=== PATIENT | male | born 1955 | race Caucasian/White ===

== ENCOUNTER 2020-03-27 13:59 | Outpatient (CLI) | payer BC, SELFPAY ==
--- NOTE | ~2020-03-27 | US_ITS ---
EXAMINATION: US renal BI DATE: 03/27/2020 14:51 INDICATION: Hematuria. Encounter for aftercare following kidney transplant. TECHNIQUE: Multiple ultrasound grayscale images of the kidneys were obtained. COMPARISON: Ultrasound 02/28/2010 FINDINGS: The [place] right kidney is absent. The left kidney measures 10.1 x 4.5 x 6.2 cm. The left kidney demo nstrates increased renal parenchymal echogenicity, consistent with nonspecific nephropathy. There are cysts in left kidney measuring up to 13 mm. There is a right-sided transplant kidney measuring 11.3 x 7.4 x 6.1 cm. The average arterial resistive index in the right kidney is normal. The transplant re nal artery waveform is normal. The transplant renal vein is patent. There is no hydronephrosis. The b ladder is normal. IMPRESSION: 1. Normal transplant kidney. 2. Absent [place] right kidney. 3. Echogenic [place] left kidney, consistent with nonspecific nephropathy. Reviewed, dictated and finalized at location A.
== END 2020-03-27 14:00 | disposition home or self-care (01) ==
PROVIDERS: PCP Family Medicine
DX: Z48.22 Encounter for aftercare following kidney transplant (principal)
CPT/HCPCS: 76775

== ENCOUNTER 2020-04-02 18:12 | Emergency (ER) | payer BC, SELFPAY ==
[2020-04-02 18:14] VITALS: BP 170/79; PULSE 78; RESP 18; TEMP 36.2; O2SAT 99
--- NOTE | 2020-04-02 18:47 | ED.GENADULT ---
HPI - General Adult General Chief complaint: Wound/Laceration Stated complaint: lac on thumb Time Seen by Provider: 04/02/20 18:13 Source: patient Mode of arrival: ambulatory Limitations: no limitations History of Present Illness HPI narrative: Patient is a 64-year-old male who presents with avulsion to the left thumb distal phalanx that occurred just prior to arrival was using a slicer when he sliced the thumb patient notes mild aching pain notes he has been unable to get the bleeding to stop patient denies other injuries or complaints presents in no distress Related Data Allergies Allergy/AdvReac Type Severity Reaction Status Date / Time Penicillins Allergy Severe Verified 01/07/10 10:40 Review of Systems Review of Systems: All systems reviewed & are unremarkable except as noted in HPI and below PMFSH Past Medical History Medical History (Updated 04/02/20 @ 18:50 by Ivan Coleman PA-C) Hypertension Renal failure Surgical History Surgical History Kidney transplanted Social History Social History (Updated 04/02/20 @ 18:49 by Ivan Coleman PA-C) Smoking status: Never smoker Gender identity (if verbalized by the patient): Male Exam Narrative: Exam Narrative: GENERAL: Well-appearing, well-nourished, and in no acute distress. HEAD: Normocephalic, atraumatic. EYES: PERRLA and EOMI. ENT: Nares clear, no rhinorrhea or epistaxis. Mucous membranes moist. EXTREMITIES: Normal range of motion. No edema. SKIN: Warm, dry, no rash. Half centimeter in diameter skin avulsion that is superficial distal left thumb NEURO: No focal deficits. Alert and oriented x3. Neurovascularly intact PSYCH: Normal mood and affect. Course Course Emergency Course: Patient in the room in no distress aware of case findings treatment plan diagnosis Vital Signs Vital signs: Vital Signs Temperature 97.2 F L 04/02/20 18:14 Pulse Rate 78 04/02/20 18:14 Respiratory Rate 18 04/02/20 18:14 Blood Pressure 170/79 H 04/02/20 18:14 Pulse Oximetry 99 04/02/20 18:14 Temperature 97.2 F L 04/02/20 18:14 Pulse Rate 78 04/02/20 18:14 Respiratory Rate 18 04/02/20 18:14 Blood Pressure 170/79 H 04/02/20 18:14 Pulse Oximetry 99 04/02/20 18:14 Procedures Other Procedure Procedure 1: Other Procedure: Patient with skin avulsion that was bleeding hemostasis achieved with let Surgicel and pressure dressing Medical Decision Making MDM Narrative Medical decision making narrative: Patients injury or pain is consistent with musculoskeletal etiology. No signs of neurological or vascular compromise on exam. Compartments and tisues are soft without signs of compartment syndrome. Pain is felt appropriate for further evaluation on an outpatient basis. Hemostasis achieved Vital Signs Vital Signs: Vital Signs Temperature 97.2 F L 04/02/20 18:14 Pulse Rate 78 04/02/20 18:14 Respiratory Rate 18 04/02/20 18:14 Blood Pressure 170/79 H 04/02/20 18:14 Pulse Oximetry 99 04/02/20 18:14 Temperature 97.2 F L 04/02/20 18:14 Pulse Rate 78 04/02/20 18:14 Respiratory Rate 18 04/02/20 18:14 Blood Pressure 170/79 H 04/02/20 18:14 Pulse Oximetry 99 04/02/20 18:14 Discharge Plan Discharge Clinical Impression: Avulsion of skin Patient Disposition: Home, Self-Care Condition: Stable Instructions: Antibiotic Form, Skin Avulsion (ED) Additional Instructions: Follow up with primary care in the next 7 days return if symptoms worsen or concerns, any increase in redness swelling pain or fever over 100.5 Clean wound with mild soapy water. Apply antibiotic ointment and clean dressing at least three times daily Follow-up/Referrals: Joao Roberts MD [Primary Care Provider] -
== END 2020-04-02 19:11 | disposition home or self-care (01) ==
LOC: ANHED 18:54
PROVIDERS: Emergency Provider Emergency Medicine; PCP Family Medicine
DX: S61.002A Unspecified open wound of left thumb without damage to nail, initial encounter (principal); I10 Essential (primary) hypertension; N19 Unspecified kidney failure; Z94.0 Kidney transplant status; W27.4XXA Contact with kitchen utensil, initial encounter
CPT/HCPCS: 12001; 99282

== ENCOUNTER 2020-04-26 15:59 | Emergency (ER) | payer BC, SELFPAY ==
[2020-04-26 16:07] VITALS: BP 152/89; PULSE 77; RESP 18; TEMP 36.1; O2SAT 95
--- NOTE | 2020-04-26 18:07 | ED.GENADULT ---
HPI - General Adult General Chief complaint: Wound/Laceration Stated complaint: SKIN BIOPSY SITE BLEEDING Time Seen by Provider: 04/26/20 16:20 Source: patient Mode of arrival: ambulatory Limitations: no limitations History of Present Illness HPI narrative: Patient is a 64-year-old male who presents to emergency department for evaluation of bleeding from his surgical wound to the left forearm patient had skin cancer removed at [facility] today discharged home and notes now that he has bleeding from the wound patient notes minimal discomfort at this time patient is currently on Xarelto for atrial fibrillation patient on arrival to emergency department is in the room in no distress and denies any bleeding from other locations or other complaints or concerns Related Data Allergies Allergy/AdvReac Type Severity Reaction Status Date / Time Penicillins Allergy Severe Verified 01/07/10 10:40 Review of Systems Review of Systems: All systems reviewed & are unremarkable except as noted in HPI and below PMFSH Past Medical History Medical History Hypertension Renal failure Surgical History Surgical History Kidney transplanted Social History Social History Smoking status: Never smoker Gender identity (if verbalized by the patient): Male Exam Narrative: Exam Narrative: GENERAL: Well-appearing, well-nourished, and in no acute distress. HEAD: Normocephalic, atraumatic. EYES: PERRLA and EOMI. ENT: Nares clear, no rhinorrhea or epistaxis. Mucous membranes moist. EXTREMITIES: Normal range of motion. No edema. SKIN: Warm, dry, no rash. Slight oozing from the left forearm incision site with some swelling with likely underlying hematoma. NEURO: No focal deficits. Alert and oriented x3. Neurovascularly intact. Capillary refill less than 2 seconds PSYCH: Normal mood and affect. Course Course Emergency Course: Patient in the room at this time resting comfortably aware of case findings treatment plan and diagnosis will follow with his clearance rep tomorrow will be discharged home provided with reasons to return Consultations Consultation #1: Discussed case with audiology who notes the patient can hold his Xarelto for 2 days and is to contact the office tomorrow Date: 04/26/20 Time: 18:15 Vital Signs Vital signs: Vital Signs Temperature 97 F L 04/26/20 16:07 Pulse Rate 77 04/26/20 16:07 Respiratory Rate 18 04/26/20 16:07 Blood Pressure 152/89 H 04/26/20 16:07 Pulse Oximetry 95 04/26/20 16:07 Temperature 97 F L 04/26/20 16:07 Pulse Rate 77 04/26/20 16:07 Respiratory Rate 18 04/26/20 16:07 Blood Pressure 152/89 H 04/26/20 16:07 Pulse Oximetry 95 04/26/20 16:07 Procedures Other Procedure Procedure 1: Other Procedure: Surgicel and pressure dressing applied to the left forearm Medical Decision Making MDM Narrative Medical decision making narrative: Patients injury or pain is consistent with musculoskeletal etiology. No signs of neurological or vascular compromise on exam. Compartments and tisues are soft without signs of compartment syndrome. Pain is felt appropriate for further evaluation on an outpatient basis. Patient with slight oozing from his wound felt appropriate for discharge home will follow with dermatology tomorrow has been given reasons to return pressure dressing applied with Surgicel Vital Signs Vital Signs: Vital Signs Temperature 97 F L 04/26/20 16:07 Pulse Rate 77 04/26/20 16:07 Respiratory Rate 18 04/26/20 16:07 Blood Pressure 152/89 H 04/26/20 16:07 Pulse Oximetry 95 04/26/20 16:07 Temperature 97 F L 04/26/20 16:07 Pulse Rate 77 04/26/20 16:07 Respiratory Rate 18 04/26/20 16:07 Blood Pressure 152/89 H 04/26/20 16:07 Pulse Oximetry 95 04/26/20 16:07
[2020-04-26 18:30] VITALS: BP 144/90; PULSE 86; RESP 20; O2SAT 97
== END 2020-04-26 18:31 | disposition home or self-care (01) ==
PROVIDERS: Emergency Provider Emergency Medicine; PCP Family Medicine
DX: L76.21 Postprocedural hemorrhage of skin and subcutaneous tissue following a dermatologic procedure (principal); I12.9 Hypertensive chronic kidney disease with stage 1 through stage 4 chronic kidney disease, or unspecified chronic kidney disease; N18.9 Chronic kidney disease, unspecified; Z94.0 Kidney transplant status
CPT/HCPCS: 12001; 99282

== ENCOUNTER → 2022-11-13 07:58 | Outpatient (CLI) | payer MEDICARE, BC, SELFPAY ==
--- NOTE | ~2022-11-13 | US_ITS ---
EXAMINATION: US venous doppler [facility] DATE: 11/13/2022 08:26 INDICATION: Left lower limb edema. TECHNIQUE: Grayscale ultrasound images without and with compression and Doppler ultrasound images of the left lower extremity veins were obtained. COMPARISON: None. FINDINGS: The visualized portions of left common femoral vein, profunda (deep) femoral vein, femoral vein, popl iteal vein, peroneal veins, posterior tibial veins, and greater saphenous vein outflow are patent. IMPRESSION: 1. No deep venous thrombosis. Reviewed, dictated and finalized at location A.
== END ==
PROVIDERS: PCP Family Medicine; Visit Provider Internal Medicine Cardiovascular Disease
DX: R60.0 Localized edema (principal); M79.605 Pain in left leg; L53.9 Erythematous condition, unspecified
CPT/HCPCS: 93971

== ENCOUNTER 2023-07-30 11:18 | Inpatient (IN) | payer MEDICARE, SELFPAY ==
--- NOTE | ~2023-07-30 | XR_ITS ---
EXAMINATION: XR chest PICC line DATE: 08/04/2023 15:32 INDICATION: Central line placement. TECHNIQUE: A single frontal view of the chest was obtained. COMPARISON: Chest single view 08/01/2023 FINDINGS: A calcified right lung nodule is consistent with old granulomatous disease. No pleural effu venkat or pneumothorax. The heart size is normal. Median sternotomy wires and mediastinal surgical clip s are seen, likely from prior coronary artery bypass grafting. A left upper extremity peripherally in serted central venous catheter (PICC) is seen with tip in the superior vena cava. IMPRESSION: 1. PICC tip in the superior vena cava. Reviewed, dictated and finalized at location A. OENGRAVING HELPER
--- NOTE | ~2023-07-30 | XR_ITS ---
EXAMINATION: XR foot LT min 3V DATE: 07/30/2023 13:22 INDICATION: Left foot wound with ulcer and erythema TECHNIQUE: Dorsoplantar, two oblique and lateral views of the left foot were obtained. COMPARISON: None. FINDINGS: Bone alignment is normal. No fracture. Mild polyarticular osteoarthritis at the first metatarsophalan geal and several tarsal metatarsal and interphalangeal joints. Large Achilles and plantar calcaneal s purs with smaller enthesophytes at the medial and lateral malleoli as well as at the lateral base of the fifth metatarsal. There is an ulceration which appears to extend through the thickness of the sub cutaneous fat overlying the medial head of the first metatarsal. No underlying cortical erosion or pe riosteal reaction to suggest osteomyelitis. IMPRESSION: 1. No findings to suggest osteomyelitis deep to a moderate thickness ulceration medial to the head of the first metatarsal. 2. Chronic degenerative changes in the foot including mild polyarticular osteoarthritis in the mid an d forefoot and enthesophytes at the ankle, mid and hindfoot. Reviewed, dictated and finalized at location A. [employer] IMPRESSION: 1. No findings to suggest osteomyelitis deep to a moderate thickness ulceration medial to the head of the first metatarsal. 2. Chronic degenerative changes in the foot including mild polyarticular osteoa rthritis in the mid and forefoot and enthesophytes at the ankle, mid and hindfo ot.
--- NOTE | ~2023-07-30 | MR_ITS ---
EXAMINATION: MR foot LT wo con DATE: 07/31/2023 13:56 INDICATION: Left foot wound with cellulitis. Assess for osteomyelitis TECHNIQUE: Magnetic resonance imaging (MRI) of the left fore/mid foot was performed without intraveno us contrast. Sequences included sagittal T1-weighted FSE, sagittal fluid sensitive FSE STIR, coronal PD-weighted FS FSE, coronal T1-weighted FSE, axial PD-weighted FS FSE, and axial PD-weighted FSE. COMPARISON: Radiographs dated 07/30/2023 FINDINGS: There is a deep ulceration at the medial head of the first metatarsal which extends deep to the super ficial margin of the medial collateral ligament complex. Moderate-sized underlying joint effusion at the first metatarsophalangeal joint suspicious for septic arthritis. There is mild marrow edema at th e base of the first proximal phalanx and at the medial head of the first metatarsal without definitiv e cortical erosion or geographic loss of T1 fat signal to more specifically suggest osteomyelitis in this remains equivocal for either reactive edema versus very early osteomyelitis. The first metatarsophalangeal tibial sesamoid appears to divide into proximal and distal portions, un clear whether this is fragmentation of a single sesamoid or a developmentally bipartite sesamoid. The re is however prominent cystic change with suggestion of some fragmentation of the proximal portion o f the sesamoid which could be related to osteoarthritis or osteomyelitis. Decreased signal in the dis fabián portion of the sesamoid and in much of the fibular sesamoid. There is mild edema along the medial margin of the fibular sesamoid without definitive cortical erosion or T1 signal loss which similarly is equivocal for reactive edema versus early osteomyelitis. There is prominent fluid extending along the flexor hallucis longus tendon which does not appear to r emain confined to the tendon sheath with additional loculated collections of fluid in the surrounding soft tissues including the distal portion of the abductor hallucis muscle and both the medial and la teral heads of the distal flexor hallucis brevis muscles, all concerning for abscess. The intramuscul ar fluid collections extend proximally to the level of the distal margin of the medial cuneiform. Dis tally the fluid extends along the flexor tendon to the level of the base of the distal phalanx. There is also a 1.3 cm diameter loculated fluid collection along the distalmost abductor hallucis muscle s ituated between the plantar aspect of the necks of the cysts first and second metatarsals. There is a lso a small amount of tenosynovial fluid more proximally at the level of the flexor not of Shaq garcia jackie this demonstrates more homogeneous higher fluid signal than the more distal fluid suggesting this may remain aseptic. There is however a prominent fusiform thickening and increased intrasubstance si gnal of the flexor hallucis longus tendon centered at the level of the distal diaphysis of the first metatarsal consistent with tendinopathy and potentially longitudinal split tearing. Otherwise normal marrow signal throughout the remaining bones in the visualized fore and midfoot. The re is diffuse fatty atrophy of the intrinsic musculature of the foot with diffuse edema within the harrington bcutaneous tissues and deeper in the intrinsic musculature throughout the visualized foot. IMPRESSION: 1. Ulceration at the medial head of the first metatarsal with moderate amount of fluid in the adjacen t first metatarsophalangeal joint suspicious for septic arthritis. 2. Mild edema at the base of the first proximal phalanx and medial head of the first metatarsal witho ut definitive cortical erosion or T1 signal loss to more specifically suggest osteomyelitis in this r emains equivocal for either reactive edema versus early osteolysis. 3. Low signal change at the first metatarsal sesamoids with cystic change and fragmentation at the pr oximal aspect
--- NOTE | ~2023-07-30 | XR_ITS ---
XR chest 1V portable 08/01/2023 08:22 Indication: Shortness of breath Procedure: AP portable chest Comparison: Comparison to multiple prior studies sequentially, with oldest reviewed study dated 03/04. Findings: Status post median sternotomy for CABG. Borderline heart size. Left basilar infiltrates may represent atelectasis or developing pneumonia. No significant effusion. No edema. No pneumothorax. N o acute osseous abnormality. Impression: 1: Left basilar infiltrate, atelectasis versus pneumonia. Reviewed, dictated and finalized at location A. ICAL INSTRUMENT MECHANIC Impression: 1: Left basilar infiltrate, atelectasis versus pneumonia.
--- NOTE | ~2023-07-30 | US_ITS ---
EXAMINATION: US arterial ankle brachial ind DATE: 08/01/2023 18:13 INDICATION: Peripheral arterial disease. Claudication. TECHNIQUE: Segmental pressures and plethysmographic and Doppler waveforms of the brachial and lower e xtremity arteries were obtained. COMPARISON: None. FINDINGS: Right brachial artery pressure was not measured due to the fistula. Left brachial artery pressure is 132 mm Hg. The right ankle-brachial index (FLOYD) is 0.83 (normal >= 0.9-1.0). The right great toe-brachial index (TBI) is 0.56 (normal >= 0.65). Arterial Doppler waveforms are monophasic at the ankle. The left FLOYD is 0.5. The left TBI is 0.25. Arterial Doppler waveforms are monophasic at the ankle. IMPRESSION: 1. Mildly decreased ABIs and decreased TBIs (left worse than right), consistent with arterial occlusi ve disease. Reviewed, dictated and finalized at location E. FERING MACHINE OPERATOR IMPRESSION: 1. Mildly decreased ABIs and decreased TBIs (left worse than right), consistent with arterial occlusive disease.
[2023-07-30 11:19] VITALS: BP 95/61; PULSE 98; RESP 16; TEMP 36.6; O2SAT 98
--- NOTE | 2023-07-30 12:57 | ED.WOUNDLAC ---
HPI - Wound/Laceration General Chief Complaint: Wound/Laceration <Marilee Allen PA-C - Last Filed: 07/30/23 16:39> Stated Complaint: open wound left foot <Marilee Allen PA-C - Last Filed: 07/30/23 16:39> Time Seen by Provider: 07/30/23 12:19 <Marilee Allen PA-C - Last Filed: 07/30/23 16:39> Source: patient <Marilee Allen PA-C - Last Filed: 07/30/23 16:39> Mode of arrival: ambulatory <Marilee Allen PA-C - Last Filed: 07/30/23 16:39> Limitations: no limitations <Marilee Allen PA-C - Last Filed: 07/30/23 16:39> History of Present Illness HPI narrative: This is a 68 year old male that presents to the ER for a wound present to the left foot. Ongoing over the last couple of weeks. Reports foul smelling drainage, redness and swelling. Denies fevers. <Marilee Allen PA-C - Last Filed: 07/30/23 16:39> Related Data Allergies/Adverse Reactions: Allergies Allergy/AdvReac Type Severity Reaction Status Date / Time Penicillins Allergy Severe Verified 01/07/10 10:40 <Marilee Allen PA-C - Last Filed: 07/30/23 16:39> Review of Systems Review of Systems: CONSTITUTIONAL: Denies fever SKIN: Reports wound NEUROLOGIC: Reports numbness <Marilee Allen PA-C - Last Filed: 07/30/23 16:39> All systems reviewed & are unremarkable except as noted in HPI and below <Marilee Allen PA-C - Last Filed: 07/30/23 16:39> [facility] Past Medical History Medical History: Medical History (Updated 07/30/23 @ 16:45 by Su Berg PA-C) Coronary artery disease Hypertension Paroxysmal atrial fibrillation Peripheral vascular disease Prediabetes Hemoglobin A1c was 6.3% in 07/2023. Renal cell carcinoma <Marilee Allen PA-C - Last Filed: 07/30/23 16:39> Surgical History Surgical History: Surgical History (Updated 07/30/23 @ 18:21 by Jim Brock MD) History of Achilles tendon repair History of cardiac catheterization History of coronary artery bypass graft (09/2015) History of kidney transplant History of right nephrectomy (08/2013) <Marilee Allen PA-C - Last Filed: 07/30/23 16:39> Family History Family History: Family History (Updated 07/30/23 @ 17:31 by Sara Florian RN) Father Hypertension Diabetes mellitus Heart attack Mother Breast cancer <Marilee Allen PA-C - Last Filed: 07/30/23 16:39> Social History Social History: Social History Social History: Surrogate medical decision maker: Code status: Smoking packs per day: 1 Smoking cigarettes per day: 20.0 Years smoked: 35 Smoking pack-years: 35.00 Smoking status: Former smoker Alcohol intake: current Drinks per week: 1 Substance use: never Substance use type: does not use Do You Feel Safe in your Home?: Yes Lack of Transportation: No Lack of Food: Never True Current Housing: Decline to Answer Concerned About Future Housing: No Difficulty Paying Gas/Electric Bills: No Difficulty Paying for Meds: No Currently Unemployed: No Education: Bachelor's Degree Difficulty w/ Childcare or Family Care: No Spiritual care concerns: No <Marilee Allen PA-C - Last Filed: 07/30/23 16:39> Exam Narrative: GENERAL: Well-appearing, well-nourished, and in no acute distress. HEAD: Normocephalic, atraumatic. EYES: EOMI. CHEST: Clear to auscultation. No respiratory distress. No wheezes rales or rhonchi HEART: Regular rate and rhythm. No murmur heard. Normal peripheral pulses. EXTREMITIES: Normal range of motion. Left foot with two ulcerating lesions. One to the medial aspect of the 1st metatarsal, additional to the plantar aspect of the 1st metatarsal. Foul smelling drainage of the plantar wound with surrounding edema and erythema. DP pulse obtained via doppler SKIN: Warm, dry, no rash. NEURO: No focal deficits. Alert and oriented x3. PSYCH: Normal mood and affect <Kai
[2023-07-30 13:47] LABS: Basophils Percent Auto 0.1 % (0.2-1.2); Hematocrit 36.8 % (42.0-52.0); Immature Granulocyte Absolute 0.07 K/mm3 (0.00-0.031); Immature Granulocyte Percent A 0.7 % (0-0.5); Lymphocytes Absolute Auto 0.27 K/mm3 (0.9-3.2); Lymphocytes Percent Auto 2.8 % (18.3-44.2); Mean Corpuscular HGB Conc 32.6 g/dl (32-36); Mean Platelet Volume 8.6 fl (7.4-10.4); Monocytes Absolute Auto 0.5 K/mm3 (0.1-0.6); Monocytes Percent Auto 5.2 % (2.6-8.5); Neutrophils Absolute Auto 8.8 K/mm3 (1.3-6.7); Neutrophils Percent Auto 91.2 % (45.5-73.1); Platelet Count Result 200 k/mm3 (150-375); White Blood Count 9.7 K/mm3 (4.5-10.0)
[2023-07-30 13:56] LABS: Lactic Acid Reflex 1.4 mmol/L (0.7-2.0)
[2023-07-30 14:00] LABS: Alanine Aminotransferase 33 U/L (6-50); Albumin Level 3.2 g/dL (3.5-5.1); Alkaline Phosphatase 100 U/L (38-126); Anion Gap 6 mmol/L (8-16); Aspartate Amino Transferase 42 U/L (17-59); Bilirubin,Total 1.2 mg/dL (0.2-1.3); Blood Urea Nitrogen 28 mg/dL (9-20); CRP 6.3 mg/dL (<1.0); Calcium 9.8 mg/dL (8.4-10.2); Carbon Dioxide 22 mmol/L (22-30); Chloride 101 mmol/L (98-107); Estimated CRCL calculation 82 ml/min; Estimated Glomerular Filt Rate > 60; Glucose 124 mg/dL (65-110); Potassium 3.8 mmol/L (3.4-5.0); Sodium 129 mmol/L (137-145)
[2023-07-30 14:24] VITALS: BP 115/62; PULSE 86; RESP 20; TEMP 36.4; O2SAT 96
[2023-07-30 14:36] LABS: Erythrocyte Sedimentation Rate 55 mm/hr (0-20)
[2023-07-30] MEDS: levoFLOXacin 750 MG/D5W 150 ML 750 MG/150 ML BAG 100 MG IVPB (15:15)
[2023-07-30] MEDS: metroNIDAZOLE 500 MG/ISO 100ML 500 MG/100 ML BAG 100 MG IVPB ×2 (15:16→20:54)
[2023-07-30 15:29] LABS: Hemoglobin A1C 6.3 % (<5.7)
[2023-07-30 16:17] VITALS: BP 114/60; PULSE 80; RESP 20; TEMP 36.5; O2SAT 96
--- NOTE | 2023-07-30 16:38 | PM.IMHP ---
H&P: HPI History of Present Illness Date/Time: 07/30/23 18:00 Chief Complaint: Left foot wound. Narrative: This is a very pleasant 68-year-old male multiple medical problems including coronary artery disease, hypertension, hyperlipidemia, atrial fibrillation on chronic anticoagulation, renal cell carcinoma status post nephrectomy, end-stage renal disease on hemodialysis prior to transplant in 2016 on immunosuppressant, and obstructive sleep apnea who presented to the emergency department for evaluation of a left foot wound. The patient provides the following history. He reports having a blood blister on the middle part of the left foot for quite some time which he has been trying to treat at home. Several weeks ago the blister ruptured and was draining serosanguineous fluid for awhile. Since that time he has noticed pain at that site with weight-bearing and more recently he has developed redness and swelling about the area. He is otherwise feeling fine and denies fever, chills, sweats, nausea, and vomiting. No history of MRSA or other drug resistant organisms to his knowledge. In the ED: He was afebrile on arrival. Blood pressures have been running at the low end of normal which he states is usual for him. Labs were significant for WBC count of 9.7, hemoglobin 12.0, ESR 55, sodium 129, BUN 28, glucose 124, hemoglobin A1c 6.3, lactic acid 1.4, CRP 6.3. Foot x-ray showed no findings to suggest osteomyelitis. He was started on levofloxacin and metronidazole and is being admitted in this setting for IV antibiotics and surgery consultation for probable debridement. Review of Systems Review of Systems: Twelve systems were reviewed. No recent cold or flu symptoms. He wears contacts and upper and lower dentures. He has lost about 5 lb in the last month or so due to a decrease in appetite; food just does not taste as good to him anymore. He denies epigastric and abdominal pain. No dysphagia. He has not had nausea or vomiting. He has a CPAP at home which he has difficulties getting use to. No history of diabetes though hemoglobin A1c today was 6.3%. Except as documented, all other systems were reviewed and are negative. [facility] Past Medical History Medical History (Updated 07/30/23 @ 21:17 by Su Berg PA-C) Chronic anticoagulation Chronic atrial fibrillation Coronary artery disease Status post 3 vessel bypass. Hypertension Immunosuppressed status On anti-rejection medications post renal transplant. Obstructive sleep apnea Prediabetes Hemoglobin A1c was 6.3% in 07/2023. Renal cell carcinoma Surgical History Surgical History (Updated 07/30/23 @ 21:13 by Su Berg PA-C) History of Achilles tendon repair History of cardiac catheterization History of coronary artery bypass graft (09/2015) History of kidney transplant (12/2015) History of right nephrectomy (2011) For renal cell carcinoma. Family History Family History Father Hypertension Diabetes mellitus Heart attack Mother Breast cancer Social History Social History (Updated 07/30/23 @ 21:14 by Su Berg PA-C) Social History: Surrogate medical decision maker: Vern Wooten, cristian. Code status: Full code. Smoking packs per day: 1 Smoking cigarettes per day: 20.0 Years smoked: 35 Smoking pack-years: 35.00 Smoking status: Former smoker Alcohol intake: current Drinks per week: 1 Substance use: never Substance use type: does not use Do You Feel Safe in your Home?: Yes Lack of Transportation: No Lack of Food: Never True Current Housing: Decline to Answer Concerned About Future Housing: No Difficulty Paying Gas/Electric Bills: No Difficulty Paying for Meds: No Currently Unemployed: No Education: Bachelor's Degree Difficulty w/ Childcare or Family Care: No Spiritual care concerns: No Meds Home Medications and Allergies Home Medications Medic
[2023-07-30 16:40] VITALS: BP 108/50; PULSE 96; RESP 17; TEMP 36.4; O2SAT 100
--- NOTE | 2023-07-30 16:48 | ADMGEN ---
This patient, Manuel Wooten, was admitted to 2 Medical Room 259-01. Patient/family oriented to hospital policies and general routines including ID bracelet, bed and alarms, visiting hours, pain management, procedures, bathroom and other care routines, personal items, smoking policy, room service/diet, and visiting hours. Information on how to activate the Rapid Response Team has been discussed. Patient/Family are encouraged to report perceived risks to care and to ask questions if they do not understand what they are told or what they should do.
--- NOTE | 2023-07-30 18:08 | WPDCN ---
Assessment and Plan Assessment and plan (1) Cellulitis of left foot: Code(s): L03.116 - Cellulitis of left lower limb Status: Acute Assessment and Plan: Patient has cellulitis of the left forefoot. He is allergic to penicillin so he has been started on Levaquin and Flagyl for IV antibiotics. (2) Wound of left foot: Code(s): S91.302A - Unspecified open wound, left foot, initial encounter Status: Acute Assessment and Plan: Patient has a draining purulent wound on the plantar surface of the left forefoot. In likely tunnels to the chronic wound on the medial left forefoot. He will likely have to have further and drainage of the wound make sure that is able to drain pus adequately and have it washed out. Given his physical examination he is at risk for osteomyelitis although that is not clearly evident on his x-rays. I would recommend getting a MRI with contrast of the left foot to evaluate for osteomyelitis. If that appears to be the case the need a extended course of IV antibiotics for 6 weeks and placement of PICC line for home IV antibiotic therapy. (3) Paroxysmal atrial fibrillation: Code(s): I48.0 - Paroxysmal atrial fibrillation Status: Acute Assessment and Plan: Patient is on Xarelto for his AFib. Will need to hold his Xarelto starting today for likely incision and drainage of the left foot wound. (4) History of kidney transplant: Code(s): Z94.0 - Kidney transplant status Status: Acute Assessment and Plan: Patient is on prednisone and what appears to be CellCept for systemic immunosuppression. I did briefly ask 1 of our dairy quality assurance officer if the patient can get a MRI with IV contrast with his kidney transplant. It was suggested as long as the patient has normal renal function of the transplant kidney then giving IV contrast with MRI should not be a problem. However, if there is any concern regarding giving this IV contrast then will formally consult Nephrology for their opinion and to aid with management of his transplant medications while he is admitted. HPI Data of Consult Date/Time: 07/30/23 18:09 Requesting Physician: Marixa Nolen MD Primary Care Provider: Joao Roberts MD Consult Narrative Reason for consult: Left foot cellulitis and purulent draining wound. Narrative: Manuel Wooten is a 68 year old male who presented to the emergency room today after noticing worsening redness and swelling of his left medial forefoot and pus draining from the plantar surface of the left forefoot. He states he had a blood blister on the medial aspect of the left foot near the 1st metatarsophalangeal joint and he tried to treat this at home with [id number] medications. He never presented to his physicians to have it evaluated. In the emergency room he was noted to have a normal white blood cell count . X-ray of the left foot showed ulcer and soft tissue swelling suggestive of cellulitis but no obvious evidence of bony erosion to suggest osteomyelitis. He admits to having some mild pain with extension and flexion of the left great toe. The patient had a normal hemoglobin A1c and has not had a prior history of diabetes however he has had a prior history of renal cell carcinoma and nephrectomy and then subsequently end-stage renal disease requiring a kidney transplant at [facility] in 2016. Since that time his transplant kidney has been working well and he takes prednisone and Cellcept for immunosuppression. He also takes Xarelto for atrial fibrillation. Review of Systems Review of Systems: The remainder of the review of systems to include constitutional, HEENT, cardiovascular, respiratory, GI, , integumentary, musculoskeletal, endocrine, immunologic, hematologic, psychiatric, and neurologic are all negative except for which is mentioned above in the HPI. [facility] Past Medical History Medical History (Updated 07/30/23 @
[2023-07-30 20:47] VITALS: BP 123/53; PULSE 76; RESP 14; TEMP 36.6; O2SAT 98; BMI 31.9
[2023-07-30 20:53] VITALS: PULSE 76
[2023-07-30] MEDS: ATORVASTATIN 40 MG TABLET PO (20:53)
[2023-07-30] MEDS: lisinopriL 10 MG TABLET 30 MG PO (20:53)
[2023-07-30] MEDS: TAMSULOSIN HCL 0.4 MG CAPSULE PO (20:53)
[2023-07-30] MEDS: carvediloL 25 MG TABLET PO (20:53)
[2023-07-30] MEDS: SODIUM CHLORIDE 0.9% IV 1,000 ML 120 ML IV CONT (23:56)
[2023-07-31] VITALS (13 sets, daily range): BP systolic 104–133; BP diastolic 47–97; PULSE 64–116; RESP 16–21; TEMP 36.2–36.7; O2SAT 90–100; BMI 32.0
[2023-07-31] MEDS: metroNIDAZOLE 500 MG/ISO 100ML 500 MG/100 ML BAG 100 MG IVPB ×3 (02:16→17:38)
[2023-07-31 05:19] LABS: Basophils Percent Auto 0.1 % (0.2-1.2); Eosinophils Percent Auto 0.1 % (0-4.4); Hematocrit 32.6 % (42.0-52.0); Hemoglobin 10.6 g/dL (14.0-18.0); Immature Granulocyte Absolute 0.05 K/mm3 (0.00-0.031); Immature Granulocyte Percent A 0.7 % (0-0.5); Lymphocytes Absolute Auto 0.38 K/mm3 (0.9-3.2); Lymphocytes Percent Auto 5.1 % (18.3-44.2); Mean Corpuscular HGB Conc 32.5 g/dl (32-36); Mean Corpuscular Hemoglobin 29.9 pg (26-34); Mean Corpuscular Volume 91.8 fl (80-100); Mean Platelet Volume 8.8 fl (7.4-10.4); Monocytes Absolute Auto 0.6 K/mm3 (0.1-0.6); Monocytes Percent Auto 7.5 % (2.6-8.5); Neutrophils Absolute Auto 6.5 K/mm3 (1.3-6.7); Neutrophils Percent Auto 86.5 % (45.5-73.1); Platelet Count Result 180 k/mm3 (150-375); Red Blood Count 3.55 M/mm3 (4.6-6.20); Red Cell Distribution Width 13.9 % (11.5-14.5); White Blood Count 7.5 K/mm3 (4.5-10.0)
[2023-07-31 05:51] LABS: Anion Gap 5 mmol/L (8-16); Blood Urea Nitrogen 23 mg/dL (9-20); Carbon Dioxide 18 mmol/L (22-30); Chloride 105 mmol/L (98-107); Estimated CRCL calculation 100 ml/min; Estimated Glomerular Filt Rate > 60; Glucose 107 mg/dL (65-110); Magnesium 1.9 mg/dL (1.6-2.3); Potassium 3.8 mmol/L (3.4-5.0); Sodium 128 mmol/L (137-145)
--- NOTE | 2023-07-31 08:13 | PM.IMPN ---
Progress Note: A&P Assessment and Plan (1) Cellulitis of left foot: Code(s): L03.116 - Cellulitis of left lower limb Status: Acute (2) Wound of left foot: Code(s): S91.302A - Unspecified open wound, left foot, initial encounter Status: Acute (3) Prediabetes: Code(s): R73.03 - Prediabetes Status: Acute (4) Hyponatremia: Code(s): E87.1 - Hypo-osmolality and hyponatremia Status: Acute (5) Immunosuppressed status: Code(s): D84.9 - Immunodeficiency, unspecified Status: Acute (6) Chronic atrial fibrillation: Code(s): I48.20 - Chronic atrial fibrillation, unspecified Status: Acute Plan This is a very pleasant 68-year-old male multiple medical problems including coronary artery disease, hypertension, hyperlipidemia, atrial fibrillation on chronic anticoagulation, renal cell carcinoma status post nephrectomy, end-stage renal disease on hemodialysis prior to transplant in 2016 on immunosuppressant, and obstructive sleep apnea who presented to the emergency department for evaluation of a left foot wound.? Cellulitis of left foot infected wound with surrounding cellulitis. started on levofloxacin and metronidazole in the emergency department and we will continue with this, and add doxy 100 mg q12h iv pending wound culture. Dr. Brock has been consulted as he will likely need debridement of the wound. f/u MRSA History of atrial fibrillation Xarelto has been placed on hold in anticipation of probable surgery. Atrial fibrillation is rate controlled on carvedilol which will be continued. Follow-up EKG Type 2 diabetes Hemoglobin A1c today is 6.3%, morning glucose 107 prediabetic. 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 End-stage renal disease status post renal transplantation, hyponatremia Creatinine stable Continue mycophenolate and prednisone. He is also on a monthly infusion, belatacept Sodium 128, unknown baseline Follow urinalysis, urine electrolytes: Urine sodium, creatinine, osmolarity Start normal saline IV at 100 mL/[id number] Consult byproducts supervisor . Subjective Date/time seen: 07/31/23 08:13 Interval history: I saw and examined the patient today. Still has some pain of right foot, pain is tolerable, patient denies fever, chills Exam Narrative: General: A well-developed, nontoxic-appearing gentleman sitting up in bed in no acute distress. Weight: 106.9 kg. BMI: 32.0. HEENT: PERRL, EOMI. Sclera anicteric. Oral mucosa moist. Neck: Supple. Respiratory: Lungs are clear to auscultation bilaterally. Cardiovascular: Irregularly irregular rate and rhythm. Gastrointestinal: Abdomen is soft, nontender, and nondistended with positive bowel sounds. Skin: Tender swelling and erythema of the of left foot chronic wound on the medial aspect of the left foot w/ tunnel to another wound active pus draining from plantar surface. Extremities: No cyanosis or clubbing. Mild edema of the left lower leg, vein graft for bypass surgery. Radial pulses 2+. Pedal pulses heard with Doppler. Neurological: Alert. Cranial nerves 2-12 are grossly intact. No gross focal deficits to casual conversation. Psychiatric: Pleasant and cooperative with normal mood and affect. Judgment and insight intact. Objective Data Vital Signs Vital Signs: Vital Signs - 24 hr 07/30/23 11:19 07/30/23 14:24 07/30/23 16:17 Temperature 97.8 F 97.6 F 97.7 F Pulse Rate 98 86 80 Respiratory Rate 16 20 20 Blood Pressure 95/61 L 115/62 114/60 Pulse Oximetry 98 96 96 Oxygen Delivery 07/30/23 16:40 07/30/23 17:35 07/30/23 20:47 Temperature 97.6 F 97.9 F Pulse Rate 96 76 Respiratory Rate 17 14 Blood Pressure 108/50 L 123/53 L Pulse Oximetry 100 98 Oxygen Delivery Room Air 07/30/23 20:53 07/31/23 06:28 Temperature 98.0 F Pulse Rate 76 72 Respiratory Rate 16 Blood Pressure 115/59 L Pulse Oximetry 100 Oxygen Delivery Intake
--- NOTE | 2023-07-31 08:17 | ECG_ITS ---
Measurements Intervals Filion Rate: 81 P: VA: 0 QRS: 25 QRSD: 88 T: 257 QT: 377 QTc: 438 Interpretive Statements ATRIAL FIBRILLATION MODERATE T-WAVE ABNORMALITY, CONSIDER LATERAL ISCHEMIA [-0.1+ mV T WAVE IN I/aVL/V5/V6] NO PREVIOUS ECG AVAILABLE FOR COMPARISON Electronically Signed On 07-31-2023 13:31:32 MINGLER OPERATOR by Sarahy Mckeon M.D.
[2023-07-31] MEDS: CHOLECALCIFEROL 1,000 UNITS TABLET 2000 UNITS PO (09:05)
[2023-07-31] MEDS: carvediloL 25 MG TABLET PO ×2 (09:06→21:25)
[2023-07-31] MEDS: amLODIPine BESYLATE 5 MG TABLET 10 MG PO (09:07)
[2023-07-31] MEDS: predniSONE 5 MG TABLET PO (09:08)
[2023-07-31] MEDS: SODIUM CHLORIDE 0.9% IV 1,000 ML 100 ML IV CONT (09:10)
--- NOTE | 2023-07-31 09:10 | PHA.ABX.ID ---
Pharmacy ID Consult - Stewardship Interventions Type of Interventions: Escalation Pharmacy ID Note: Subjective Pharmacy was consulted by Hailee Brock regarding infectious diseases for Manuel Wooten. Manuel Wooten is a 68 year old M with concerns regarding DFI with potential osteomyelitis. Background The patient is currently receiving levofloxacin 750 mg q24h, and metronidazole 500 mg q6h (Day 2). The patient's PMH includes cellulitis of foot with purulent wound on plantar surface of left foot with potential tunneling to other wound. Foot xray did not identify otsteomyelitis - foot mri pending.. Source control of identified abscess in wound pending. Additionally, blood and wound cultures are pending. Assessment/Recommendation/Discussion Spoke with Dianne Marcus - Due to purulence of wound discussed adding vancomycin for reliable MRSA coverage. Provider agrees with targeting dosing to SSTI until OM confirmed. Discussed dose change of metronidazole to q8h. If not OM: follow cultures for targeted therapy and for source control of infected tissue and abscess and ideally therapy will be able to completed with <14 days of therapy from source control to be completed with oral antibiotics If OM: if source control includes resection of all infected bone - then see not OM recc above. If source control leaves residual infected bone in patient consider 6 weeks of therapy- ideally with oral medications - but will depend on culture results. Will continue to follow. Please reach out if more information becomes available. Patient now on Levofloxacin IV 750 mg q24h (day 2), metronidazole iv 500 mg q8h (day 2) and vancomycin pharmacy to dose (day 1). Thank you for the interesting consult. Brendon Mckeon, PharmD Infectious Disease/Antimicrobial Stewardship Pharmacist 07/31/23; 0910 WBC 7.5 K/mm3 (4.5-10.0) 07/31/23 04:42 Creatinine 0.80 mg/dL (0.7-1.3) 07/31/23 04:42 Estim Creat Clear Calc 100 ml/min 07/31/23 04:42
--- NOTE | 2023-07-31 09:21 | PHAR ---
HOME MED Mycophenolate Sodium 360 mg Tablet, Delayed Release (Dr/Ec); TAKE 1 TABLET BY MOUTH BID. VERIFIED BY PHARMACY. NURSE STATED PATIENT TAKES AT 0900 AND 1800
--- NOTE | 2023-07-31 09:25 | PCWOUND ---
WOCN NOTE Received referral from ER for foot wound, Patient is being followed by surgeon. No wound care assessment needed at this time.
[2023-07-31] MEDS: MYCOPHENOLATE SODIUM 360 MG 360 EACH PO ×2 (09:30→18:10)
[2023-07-31] MEDS: VANCOMYCIN 1,500 MG/NS 500 ML 1,500 MG/500 ML BAG 250 MG IVPB ×2 (10:18→22:43)
--- NOTE | 2023-07-31 13:13 | PM.CNNEP ---
Assessment and Plan Assessment and plan (1) Hyponatremia: Code(s): E87.1 - Hypo-osmolality and hyponatremia Status: Acute Assessment and Plan: appears acute no evidence of low sodium levels on monthly labs done by his transplant team presumably related to pain +/- infection of left foot relatively stable at this time for completeness, check TSH, cortisol, SPEP and UPEP follow trend of repeat sodium levels (2) History of kidney transplant: Onset Date: 12/2015 Code(s): Z94.0 - Kidney transplant status Status: Chronic Assessment and Plan: normal allograft function continue current immunosuppression follow renal function (3) Wound of left foot: Code(s): S91.302A - Unspecified open wound, left foot, initial encounter Status: Acute Assessment and Plan: complicated by cellulitis Surgery following plan further incision and drainage in OR follow culture data I will continue follow the patient with you while he remains hospitalized and make further recommendations as deemed necessary. Thank you for allowing me to participate in the care of this patient. History of Present Illness Reason for Consult Consult date: 07/31/23 Reason for consult: hyponatremia and Other (s/p renal transplant) Chief Complaint Chief complaint: infected foot wound History of Present Illness Narrative: The patient is a 68-year-old male with a past medical history as outlined below who presented to [facility] Emergency room for further evaluation of his left foot wound. The patient reports that he had a blood blister on the middle part of his left foot for quite some time for which she has been trying to treat at home. Several weeks ago, the blister apparently ruptured and was draining serosanguineous fluid for a significant period of time. Since that time, he has noticed pain at the site of the blister in association with weight-bearing activities. More recently, he has noticed increased redness and swelling around that area as well. He otherwise has no other acute complaints but since he is on immunosuppressive therapy for his kidney transplant, he became concerned by the appearance of that area on his left foot. Given this concern, he presented to the ER for further assessment. Workup and evaluation in the emergency room demonstrated the patient to be afebrile with his blood pressure being on the lower end of normal which she reports is his baseline. Routine blood tests were done which demonstrated a CBC with a white blood cell count 9.7, hemoglobin 12.0, sed rate of 55, and a chemistry that demonstrated normal renal function with a sodium level of 129. lactic acid was 1.4 CRP was 6.3 and x-rays of the foot showed no evidence of osteomyelitis. However, given his known immunosuppression with regard to his renal transplantation, appropriate cultures were obtained and he was started on broad-spectrum IV antibiotic therapy with subsequent admission to the hospital for further evaluation and therapy. Since his admission, he has been seen by General surgery with a tentative plan for the patient be taken to the OR for more invasive incision and drainage of a suspected abscess in his left foot. Renal consultation was requested due to the findings of hyponatremia as noted on admission and by current labs. The patient is somewhat familiar to me as I used to take care of the patient's dialysis needs when he was on renal replacement therapy prior to his kidney transplant. It would seem that since his kidney transplantation, he has been doing reasonably well from a kidney perspective and continues to follow with [facility] transplant for ongoing management of his immunosuppressive therapy. From my discussion with the patient, he does not recall ever being told he had any issues or problems with hyponatremia particularly since he does get monthly labs done for monitoring of his kidney escobar
--- NOTE | 2023-07-31 13:38 | PC.NURSE ---
On 07/31/23, the student, [Marilee Aiken], provided care and completed [facility] documentation on this patient. I have reviewed the student's documentation and agree with the findings.
--- NOTE | 2023-07-31 14:20 | PC.NURSE ---
To OR via bed. Voiding without difficulty. Verbal report given to Tommy RN Preop Nurse at bedside,
[2023-07-31 14:27] LABS: Appearance Urine Clear (Clear); Bilirubin Urine Negative (Negative); Blood Urine Negative (Negative); Color Urine Yellow (Yellow); Glucose Urine UA Negative (Negative); Ketones Urine Negative (Negative); Leukocyte Esterase Ur Negative LEU/UL (NEGATIVE); Nitrate Urine Negative (Negative); Protein Urine Negative (Negative); Specific Grav Ur 1.009 (1.001-1.035)
[2023-07-31 14:38] LABS: Add Urine Microscopic? NO
[2023-07-31] MEDS: DOXYCYCLINE 100 MG/NS 100 ML 100 MG/100 ML BAG IVPB (14:43)
--- NOTE | 2023-07-31 15:14 | WPDANESEPPF ---
Anes - Initial Pre Proc Eval Procedure: Operation Date: 07/31/23 15:30 Proposed Procedures p Incision and Drainage Left Foot Wound - Jim Brock MD Date/Time: 07/31/23 15:14 Surgeon: Marixa Nolen MD Pre Op Diagnosis: infected foot wound Patient Data Age: 68 Gender: M Height: 1.83 m Weight: 107.2 kg Last Vital Signs Temp 36.3 C L 07/31/23 14:39 Pulse 64 07/31/23 14:39 Resp 16 07/31/23 14:39 BP 118/47 L 07/31/23 14:39 Pulse Ox 95 07/31/23 14:39 O2 Del Method Room Air 07/31/23 14:39 Allergies Allergy/AdvReac Type Severity Reaction Status Date / Time Penicillins Allergy Severe Swelling Verified 07/31/23 06:44 contrast dye Allergy Rash Uncoded 07/31/23 06:44 Home Medications Medication Instructions Recorded Confirmed Type amlodipine 10 mg tablet 10 mg PO DAILY 07/30/23 07/30/23 History atorvastatin 40 mg tablet (Lipitor) 40 mg PO QHS 07/30/23 07/30/23 History belatacept 250 mg intravenous 550 mg IV MONTHLY 07/30/23 07/30/23 History solution carvedilol 25 mg tablet 25 mg PO BID 07/30/23 07/30/23 History cholecalciferol (vitamin D3) 50 50 mcg PO DAILY 07/30/23 07/30/23 History mcg (2,000 unit) tablet (Vitamin D3) lisinopril 30 mg tablet 30 mg PO QHS 07/30/23 07/30/23 History mycophenolate sodium 360 mg 360 mg PO Q12H 07/30/23 07/30/23 History tablet,delayed release prednisone 5 mg tablet 5 mg PO DAILY 07/30/23 07/30/23 History rivaroxaban 20 mg tablet (Xarelto) 20 mg PO QPM 07/30/23 07/30/23 History sennosides 8.6 mg tablet (Senokot) 8.6 mg PO BID PRN Constipation 07/30/23 07/30/23 History tamsulosin 0.4 mg capsule 0.4 mg PO QHS 07/30/23 07/30/23 History Laboratory Tests 07/30/23 07/31/23 07/31/23 13:29 04:42 14:07 WBC 7.5 K/mm3 (4.5-10.0) RBC 3.55 L M/mm3 (4.6-6.20) Hgb 10.6 L g/dL (14.0-18.0) Hct 32.6 L % (42.0-52.0) MCV 91.8 fl (80-100) MCH 29.9 pg (26-34) MCHC 32.5 g/dl (32-36) RDW 13.9 % (11.5-14.5) Plt Count 180 k/mm3 (150-375) MPV 8.8 fl (7.4-10.4) Immature Gran % (Auto) 0.7 H % (0-0.5) Neut % (Auto) 86.5 H % (45.5-73.1) Lymph % (Auto) 5.1 L % (18.3-44.2) [place] % (Auto) 7.5 % (2.6-8.5) Eos % (Auto) 0.1 % (0-4.4) Baso % (Auto) 0.1 L % (0.2-1.2) Lymph # (Auto) 0.38 L K/mm3 (0.9-3.2) [place] # (Auto) 0.6 K/mm3 (0.1-0.6) Eos # (Auto) 0.0 K/mm3 (0-0.3) Baso # (Auto) 0.0 K/mm3 (0.0-0.1) Abs Immat Gran (auto) 0.05 H K/mm3 (0.00-0.031) Absolute Neuts (auto) 6.5 K/mm3 (1.3-6.7) Absolute Nucleated RBC 0.0 K/mm3 (0.0-0.012) Nucleated RBC % 0.0 % (0.0-0.2) Sodium 128 L mmol/L (137-145) Potassium 3.8 mmol/L (3.4-5.0) Chloride 105 mmol/L (98-107) Carbon Dioxide 18 L mmol/L (22-30) Anion Gap 5 L mmol/L (8-16) BUN 23 H mg/dL (9-20) Creatinine 0.80 mg/dL (0.7-1.3) Estim Creat Clear Calc 100 ml/min Estimated GFR > 60 (59 - ) Glucose 107 mg/dL (65-110) Hemoglobin A1c 6.3 H % (<5.7) Calcium 9.0 mg/dL (8.4-10.2) Magnesium 1.9 mg/dL (1.6-2.3) Urine Color Yellow (Yellow) Urine Appearance Clear (Clear) Urine pH 6.0 (5.0-9.0) Ur Specific [place] 1.009 (1.001-1.035) Urine Protein Negative mg/dL (Negative) Urine Glucose (UA) Negative mg/dL (Negative) Urine Ketones Negative mg/dL (Negative) Ur Blood (Man) Negative (Negative) Urine Nitrate Negative (Negative) Urine Bilirubin Negative (Negative) Urine Urobilinogen 1.0 mg/dL (<2.0) Ur Leukocyte Esterase Negative NORAH/UL (NEGATIVE) Urine Osmolality
[2023-07-31] MEDS: LACTATED RINGERS 1,000 ML 30 ML IV CONT (15:20)
[2023-07-31 15:31] LABS: MRSA (PCR) NOT DETECTED (NOT DETECTE)
--- NOTE | 2023-07-31 15:47 | WPDHPUPDATE1 ---
History and Physical Update Update Date/Time: 07/31/23 15:47 History and Physical has been reviewed, including an updated exam of the patient. There are NO changes in the patient's condition. Risks, benefits, and alternatives have been discussed and questions answered. Patient agrees to proceed with procedure.
[2023-07-31] MEDS: levoFLOXacin 750 MG/D5W 150 ML 750 MG/150 ML BAG 100 MG IVPB (15:50)
[2023-07-31] MEDS: BUPivacaine HCL 0.5% 10 ML AMP INFILTRATE (16:15)
[2023-07-31] MEDS: LIDO 1%/EPINEPHRINE 1:100,000 20 ML VIAL 10 ML INFILTRATE (16:15)
[2023-07-31 17:17] LABS: Urea Random Urine 443 MG/DL
[2023-07-31 17:22] LABS: Sodium Urine Random 57 meq/L
--- NOTE | 2023-07-31 17:29 | W.PM.PROC2 ---
Procedure Note - Detailed Date of Procedure 07/31/23 Pre-op Diagnosis Left forefoot abscess Post-op Diagnosis Same Procedure Performed Complex incision and drainage of left forefoot abscess Surgeon Jim Brock MD Anesthesia General Indications Patient is 68-year-old gentleman who is immunocompromised due to being on medications status post kidney transplant he developed a plantar surface forefoot wound on his left foot a couple of weeks ago and had been trying to treat it at home. He finally came to the emergency room after started draining pus in the redness and pain and swelling was getting worse. He was admitted started on IV antibiotics. MRI today of the left foot showed changes possibly suggesting a septic 1st metatarsophalangeal joint. Also osteomyelitis was a possibility and the abscess extended into the deeper portions of the forefoot and proximally to the mid foot. Findings The patient initially had a open draining wound the plantar surface of the left forefoot just around the area of the 1st metatarsophalangeal joint. The joint space was not exposed. There was copious amounts of pus draining from the wound. There is erythema and swelling of the base of the left 1st toe. There is a chronic wound of the medial left foot alongside the head of the left 1st metatarsal. Upon opening up the wound in the plantar surface of the left forefoot the pus tracked along the plantar surface proximally to the mid foot. The tract also extended up to the chronic wound medial to the 1st metatarsal head. From there it also then tracked proximally on the medial dorsal aspect of thefoot to the mid foot. Description of Procedure After informed consent was obtained patient brought to the operating room placed supine position and general LMA anesthesia was administered. The left lower extremity from the mid tibia area distally to the toe was then prepped and draped usual sterile fashion. Time-out was then performed correctly identifying the patient as well as procedure to be performed verifying the site marking. He was already on scheduled antibiotics. I 1st started by probing the tract from the wound in the left forefoot plantar surface. It tracked proximally up the foot to the mid foot and the arch area. I obtained a culture stick for aerobic anaerobic cultures and sent this to microbiology. I then further opened the wound on the plantar surface of the forefoot so there was about a cm in diameter. Then made a counter incision by placing a Grace clamp through the tract and made a counter incision in the medial midfoot in the area the arch. The tract also extended to the dorsal portion of the foot where the chronic wound was noted and then extended also proximally to the midportion of the foot on the dorsal side. I placed a Grace clamp through all these tracks and made sure they were widely open and then made counter incisions. I then irrigated With [id number] of sterile saline solution to wash out the wound. When I was done irrigating no more pus was coming out of the wound. Then placed quarter-inch [place] drains through all the tracts. In all 3 separate pieces of [place] drain were placed to keep the tract open and they were secured to themselves in a loop configuration utilizing 3-0 nylon sutures. At this point I then cleaned off the foot then dressed it with Xeroform gauze over the chronic open wound in the medial forefoot and then cover the remaining portion of the foot and wound and Alicia drains with fluffed 4x4 gauze and wrapped with a Kerlix gauze and an Abel wrap. The patient tolerated the procedure well no complications. All sponges, needles, and instrument counts were correct at the end procedure. EBL was _20__cc. The patient was awakened and taken to recovery in stable and satisfactory condition. Implants None Estimated Blood Loss 20 Urine Output 500 Drains Yes ( Alicia drains x3) Packing No Pathology Other ( culture swab
[2023-07-31 18:12] LABS: Glucose Point of Care 88 mg/dl (65-105)
[2023-07-31] MEDS: ATORVASTATIN 40 MG TABLET PO (21:25)
[2023-07-31] MEDS: lisinopriL 10 MG TABLET 30 MG PO (21:25)
[2023-07-31] MEDS: TAMSULOSIN HCL 0.4 MG CAPSULE PO (21:25)
[2023-07-31] MEDS: HYDROcodone/acetaminophen (*CRX) 5-325 MG TABLET 1 TAB PO (22:39)
[2023-08-01] VITALS (9 sets, daily range): BP systolic 105–122; BP diastolic 48–91; PULSE 73–102; RESP 18–20; TEMP 36.1–36.9; O2SAT 93–100
[2023-08-01] MEDS: DOXYCYCLINE 100 MG/NS 100 ML 100 MG/100 ML BAG IVPB ×3 (00:59→21:49)
[2023-08-01] MEDS: metroNIDAZOLE 500 MG/ISO 100ML 500 MG/100 ML BAG 100 MG IVPB ×3 (02:34→18:46)
[2023-08-01 05:32] LABS: Estimated CRCL calculation 90 ml/min; Estimated Glomerular Filt Rate > 60
[2023-08-01 07:14] LABS: Basophils Percent Auto 0.2 % (0.2-1.2); Hematocrit 30.9 % (42.0-52.0); Hemoglobin 10.1 g/dL (14.0-18.0); Immature Granulocyte Absolute 0.05 K/mm3 (0.00-0.031); Immature Granulocyte Percent A 0.6 % (0-0.5); Lymphocytes Absolute Auto 0.25 K/mm3 (0.9-3.2); Lymphocytes Percent Auto 2.9 % (18.3-44.2); Mean Corpuscular HGB Conc 32.7 g/dl (32-36); Mean Corpuscular Hemoglobin 30.4 pg (26-34); Mean Corpuscular Volume 93.1 fl (80-100); Mean Platelet Volume 8.5 fl (7.4-10.4); Monocytes Absolute Auto 0.5 K/mm3 (0.1-0.6); Monocytes Percent Auto 5.6 % (2.6-8.5); Neutrophils Absolute Auto 7.8 K/mm3 (1.3-6.7); Neutrophils Percent Auto 90.7 % (45.5-73.1); Platelet Count Result 144 k/mm3 (150-375); Red Blood Count 3.32 M/mm3 (4.6-6.20); Red Cell Distribution Width 14.4 % (11.5-14.5); White Blood Count 8.6 K/mm3 (4.5-10.0)
--- NOTE | 2023-08-01 07:21 | WPDANESPN ---
Anes - Prog Note Post-Op Date/Time: 08/01/23 07:21 Cardiovascular status: normal Respiratory status: normal Airway patency: baseline Mental status: baseline Post-Op hydration status: normal Vital Signs: Last Vital Signs Temp 97.8 F 08/01/23 05:20 Pulse 86 08/01/23 05:20 Resp 18 08/01/23 05:20 BP 105/53 L 08/01/23 05:20 Pulse Ox 98 08/01/23 05:20 O2 Del Method Room Air 07/31/23 17:40 Pain Score (VAS): 3-4 I/O: Intake & Output 07/31/23 07/31/23 08/01/23 15:59 23:59 07:59 Intake Total 700 672 950 Output Total 1100 1350 400 Balance -400 -678 550 07/31/23 07/31/23 07/31/23 14:07 14:10 18:06 WBC RBC Hgb Hct MCV MCH MCHC RDW Plt Count MPV Immature Gran % (Auto) Neut % (Auto) Lymph % (Auto) Stone % (Auto) Eos % (Auto) Baso % (Auto) Lymph # (Auto) Stone # (Auto) Eos # (Auto) Baso # (Auto) Abs Immat Gran (auto) Absolute Neuts (auto) Absolute Nucleated RBC Nucleated RBC % Sodium Potassium Chloride Carbon Dioxide Anion Gap BUN Creatinine Estim Creat Clear Calc Estimated GFR Glucose POC Capillary Glucose 88 Calcium Total Bilirubin AST ALT Alkaline Phosphatase Total Protein Albumin Arpol-0-Tenmsooxk Jquqn-1-Etahsjuyg Vabj-9-Iydsfqwy Pjbw-3-Yegxpglm Gamma Globulins Abnorm Protein Band 1 Abnorm Protein Band 3 PEP Interpretation TSH (Reflex) Random Cortisol Urine Color Yellow Urine Appearance Clear Urine pH 6.0 Ur Specific [place] 1.009 Urine Protein Negative Urine Glucose (UA) Negative Urine Ketones Negative Ur Blood (Man) Negative Urine Nitrate Negative Urine Bilirubin Negative Urine Urobilinogen 1.0 Ur Leukocyte Esterase Negative Urine Osmolality Pending Ur Random Sodium 57 Ur Random Urea 443 Nasal MRSA (PCR) Not detected 08/01/23 08/01/23 08/01/23 04:29 07:06 07:06 WBC Pending RBC Pending Hgb Pending Hct Pending MCV Pending MCH Pending MCHC Pending RDW Pending Plt Count Pending MPV Pending Immature Gran % (Auto) Pending Neut % (Auto) Pending Lymph % (Auto) Pending Stone % (Auto) Pending Eos % (Auto) Pending Baso % (Auto) Pending Lymph # (Auto) Pending Stone # (Auto) Pending Eos # (Auto) Pending Baso # (Auto) Pending Abs Immat Gran (auto) Pending Absolute Neuts (auto) Pending Absolute Nucleated RBC Pending Nucleated RBC % Pending Sodium Pending Potassium Pending Chloride Pending Carbon Dioxide Pending Anion Gap Pending BUN Pending Creatinine 0.90 Pending Estim Creat Clear Calc 90 Pending Estimated GFR > 60 Pending Glucose Pending POC Capillary Glucose Calcium Pending Total Bilirubin Pending AST Pending ALT Pending Alkaline Phosphatase Pending Total Protein Pending Pending Albumin Pending Gbkdt-1-Wtosmyrtq Sxtbe-0-Rhdbuoprz Vkou-6-Ccossxsf Czvg-9-Kzrlgugt Gamma Globulins Abnorm Protein Band 1 Abnorm Protein Band 3 PEP Interpretation TSH (Reflex) Random Cortisol Urine Color Urine Appearance Urine pH Ur Specific [place] Urine Protein Urine Glucose (UA) Urine Ketones Ur Blood (Man) Urine Nitrate Urine Bilirubin Urine Urobilinogen Ur Leukocyte Esterase Urine Osmolality Ur Random Sodium Ur Random Urea Nasal MRSA (PCR) 08/01/23 07:06 WBC RBC Hgb Hct MCV MCH MCHC RDW Plt Count MPV Immature Gran % (Auto) Neut % (Auto) Lymph % (Auto) Stone % (Auto) Eos % (Auto) Baso % (Auto) Lymph # (Auto) Stone # (Auto) Eos # (Auto) Baso # (Auto) Abs Immat Gran (auto) Absolute Neuts (auto) Absolute Nucleated RBC Nucleated RBC % Sodium Potassium Chloride Carbon Dioxide Anion Gap BUN Creatinin
[2023-08-01 07:25] LABS: Alanine Aminotransferase 23 U/L (6-50); Albumin Level 2.2 g/dL (3.5-5.1); Alkaline Phosphatase 74 U/L (38-126); Anion Gap 3 mmol/L (8-16); Aspartate Amino Transferase 23 U/L (17-59); Blood Urea Nitrogen 17 mg/dL (9-20); Calcium 8.7 mg/dL (8.4-10.2); Carbon Dioxide 21 mmol/L (22-30); Chloride 106 mmol/L (98-107); Estimated CRCL calculation 81 ml/min; Estimated Glomerular Filt Rate > 60; Glucose 109 mg/dL (65-110); Potassium 4.2 mmol/L (3.4-5.0); Sodium 130 mmol/L (137-145)
[2023-08-01 07:34] LABS: Anisocytosis 1+ (NORMAL); Burr Cells 1+ (NORMAL); Platelet Estimate Adequate (Adequate); Schistocytes None Seen (NORMAL)
--- NOTE | 2023-08-01 08:16 | PM.IMPN ---
Progress Note: A&P Assessment and Plan (1) Cellulitis of left foot: Code(s): L03.116 - Cellulitis of left lower limb Status: Acute (2) Wound of left foot: Code(s): S91.302A - Unspecified open wound, left foot, initial encounter Status: Acute (3) Prediabetes: Code(s): R73.03 - Prediabetes Status: Acute (4) Hyponatremia: Code(s): E87.1 - Hypo-osmolality and hyponatremia Status: Acute (5) Immunosuppressed status: Code(s): D84.9 - Immunodeficiency, unspecified Status: Acute (6) Chronic atrial fibrillation: Code(s): I48.20 - Chronic atrial fibrillation, unspecified Status: Acute Plan This is a very pleasant 68-year-old male multiple medical problems including coronary artery disease, hypertension, hyperlipidemia, atrial fibrillation on chronic anticoagulation, renal cell carcinoma status post nephrectomy, end-stage renal disease on hemodialysis prior to transplant in 2015 on immunosuppressant, and obstructive sleep apnea who presented to the emergency department for evaluation of a left foot wound.? Cellulitis of left foot infected wound with surrounding cellulitis. started on levofloxacin and metronidazole in the emergency department and we will continue with this, and add doxy 100 mg q12h iv pending wound culture. Dr. Brock has been consulted as he will likely need debridement of the wound. f/u MRSA 08/01 S/P Complex incision and drainage of left forefoot abscess D1, wound culture pending, continue current antibiotics History of atrial fibrillation Xarelto has been placed on hold in anticipation of probable surgery. Atrial fibrillation is rate controlled on carvedilol which will be continued. Follow-up EKG: AFib, rate is controlled 81 Will resume Xarelto when it is okay for general surgeon Type 2 diabetes Hemoglobin A1c today is 6.3%, morning glucose 107 prediabetic. 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 End-stage renal disease status post renal transplantation, hyponatremia Creatinine stable Continue mycophenolate and prednisone. He is also on a monthly infusion, belatacept Sodium 128, unknown baseline Follow urinalysis, urine electrolytes: Urine sodium, creatinine, osmolarity Start normal saline IV at 100 mL/hour on 07/31 Consult second steward now Sodium is trending up, . Subjective Date/time seen: 08/01/23 08:16 Interval history: S/P Complex incision and drainage of left forefoot abscess D1 Exam Narrative: General: A well-developed, nontoxic-appearing gentleman sitting up in bed in no acute distress. Weight: 106.9 kg. BMI: 32.0. HEENT: PERRL, EOMI. Sclera anicteric. Oral mucosa moist. Neck: Supple. Respiratory: Lungs are clear to auscultation bilaterally. Cardiovascular: Irregularly irregular rate and rhythm. Gastrointestinal: Abdomen is soft, nontender, and nondistended with positive bowel sounds. Skin: Tender swelling and erythema of the of left foot chronic wound on the medial aspect of the left foot w/ tunnel to another wound active pus draining from plantar surface. Extremities: No cyanosis or clubbing. Mild edema of the left lower leg, vein graft for bypass surgery. Radial pulses 2+. Pedal pulses heard with Doppler. Neurological: Alert. Cranial nerves 2-12 are grossly intact. No gross focal deficits to casual conversation. Psychiatric: Pleasant and cooperative with normal mood and affect. Judgment and insight intact. Objective Data Vital Signs Vital Signs: Vital Signs - 24 hr 07/31/23 09:06 07/31/23 09:05 07/31/23 14:00 Temperature 98.0 F Pulse Rate 79 92 Respiratory Rate 16 Blood Pressure 124/58 L Pulse Oximetry 97 Oxygen Delivery Room Air 07/31/23 14:39 07/31/23 16:39 07/31/23 16:45 Temperature 97.3 F L 97.1 F L Pulse Rate 64 73 74 Respiratory Rate 16 17 19 Blood Pressure 118/47 L 104/52 L 104/63 Pulse Oximetry 95 97 97 Oxygen Delivery Room Air Room
[2023-08-01] MEDS: predniSONE 5 MG TABLET PO (09:05)
[2023-08-01] MEDS: carvediloL 25 MG TABLET PO ×2 (09:05→21:13)
[2023-08-01] MEDS: amLODIPine BESYLATE 5 MG TABLET 10 MG PO (09:06)
[2023-08-01] MEDS: SODIUM CHLORIDE 0.9% IV 1,000 ML 100 ML IV CONT (09:06)
[2023-08-01] MEDS: CHOLECALCIFEROL 1,000 UNITS TABLET 2000 UNITS PO (09:06)
[2023-08-01] MEDS: MYCOPHENOLATE SODIUM 360 MG 360 EACH PO ×2 (09:07→18:47)
[2023-08-01 09:09] LABS: Creatinine Urine 66.4 mg/dL; Total Protein Urine Random 12 mg/dL; Ur Ttl Prot Creatinine Ratio 0.18 mg/mg (0-0.20); Urea Random Urine 503 MG/DL
[2023-08-01 09:11] LABS: Sodium Urine Random 51 meq/L
--- NOTE | 2023-08-01 09:37 | PHA.ABX.ID ---
Pharmacy ID Consult - Stewardship Interventions Type of Interventions: De-escalation, Escalation Pharmacy ID Note: Update 08/01 937 Subjective: Patient this AM noted to be on Levofloxacin (D3) metronidazole (d3) vancomycin (d2) and doxycycline (d2). Last agent started by hospitalist service after initial discussion with provider from consulting service. Patient underwent source control of abscess yesterday and new wound cx from midfoot sent - pending - and initial wound culture (more surface level) shows Group B Streptococccus Objective: Microbiology 07/31/23 16:13 Foot Left Anaerobic Culture - Preliminary 07/30/23 13:32 Blood Blood Culture - Preliminary 07/30/23 13:32 Blood Blood Culture - Preliminary 07/30/23 13:17 Foot Left Wound Culture - Preliminary Group B Streptococcus isolated Assessment and Plan: Spoke with consulting provider Hailee Brock - he deferred antibiotic management to hospitalist. Spoke with Hospitalist Booen about this drug regimen and potential duplicate therapy with doxycycline and vancomycin in terms of broad gram positive coverage. MD Boone agrees and given history of renal transplant provider would prefer to discontinue vancomycin and continue with doxycycline. Discussed with provider the drug interactions between patient's home medication of Mycophenolate and levofloxacin and metronidazole in which the two antibiotic agents may have additive effect in decreasing efficacy of the immunosuppressant. Informed provider monitoring may be needed for mycophenolate levels for efficacy. Provider transitioned levofloxacin to cefepime 2g q12h to continue broad coverage including gram-negative coverage of Pseudomonas. Provider informed of patient penicillin allergy (Swelling reaction) and was okay with moving forward with this change. Will continue to follow 07/31 foot culture as well as other cultures to help guide therapy and await decision on final source control. This may be osteomyelitis - will follow but reach out if additional information comes to light or additional recommendations are needed. Thank you. Patient currently on Cefepime 2g q12h (D1 - day 3 of this GNR / strep coverage) Doxycycline 100 q12h (D2 of mrsa coverage) and metronidazole 500 q8h (d3 of anaerobic coverage) Should allergy provide to be a barrier of continued cefepime - more complicated and less ideal drug regimens exist to cover the broad spectrum of MRSA, Streptococcus, Common GI/ GNRs, Pseudomonas, and anaerobes. Ideally culture results allow for regimen simplification. Prev note below Subjective Pharmacy was consulted by Hailee Brock regarding infectious diseases for Manuel Wooten. Manuel Wooten is a 68 year old M with concerns regarding DFI with potential osteomyelitis. Background The patient is currently receiving levofloxacin 750 mg q24h, and metronidazole 500 mg q6h (Day 2). The patient's PMH includes cellulitis of foot with purulent wound on plantar surface of left foot with potential tunneling to other wound. Foot xray did not identify otsteomyelitis - foot mri pending.. Source control of identified abscess in wound pending. Additionally, blood and wound cultures are pending. Assessment/Recommendation/Discussion Spoke with Dianne Marcus - Due to purulence of wound discussed adding vancomycin for reliable MRSA coverage. Provider agrees with targeting dosing to SSTI until OM confirmed. Discussed dose change of metronidazole to q8h. If not OM: follow cultures for targeted therapy and for source control of infected tissue and abscess and ideally therapy will be able to completed with <14 days of therapy from source control to be completed with oral antibiotics If OM: if source control includes resection of all infected bone - then see not OM recc above. If source control leaves residual infected bone in patient consider 6 weeks of
[2023-08-01] MEDS: CEFEPIME 2 GM/NS 50 ML 2 GM/50 ML BAG IVPB ×2 (10:55→21:13)
--- NOTE | 2023-08-01 11:11 | PM.PNNEP ---
Progress Note: A&P Assessment and Plan (1) Hyponatremia: Code(s): E87.1 - Hypo-osmolality and hyponatremia Status: Acute Assessment and Plan: stable if not better appears acute no evidence of low sodium levels on monthly labs done by his transplant team presumably related to pain +/- infection of left foot relatively stable at this time evaluation to date: TSH okay cortisol stable urine electrolytes non-prerena; SPEP and UPEP pending follow trend of repeat sodium levels (2) History of kidney transplant: Onset Date: 12/2015 Code(s): Z94.0 - Kidney transplant status Status: Chronic Assessment and Plan: normal allograft function continue current immunosuppression follow renal function (3) Wound of left foot: Code(s): S91.302A - Unspecified open wound, left foot, initial encounter Status: Acute Assessment and Plan: complicated by cellulitis Surgery following status post complex incision and?drainage of left forefoot abscess (on 07/31) continue IV antibiotics Orthopedics consulted follow culture data Will continue to follow. Subjective Date/time seen: 08/01/23 11:11 Interval history: Follow-up for hyponatremia and known history of renal transplanatation. Tolerated surgery yesterday afternoon on his left foot; pain control seems adequate; no apparent distress noted; renal function remains stable; no other acute complaints voiced. Exam Narrative: General: WD/WN male in NAD Heart: normal S1 and S2; no rub Lungs: clear to auscultation Abdomen: soft, nontender, nondistended, positive bowel sounds Extremities: no cyanosis or clubbing; no edema Skin: left foot dressings/drains in place Objective Data Vital Signs Vital Signs: Vital Signs Temp Pulse Resp BP Pulse Ox O2 Del Method 08/01/23 10:58 97.1 F L 73 18 121/91 H 98 08/01/23 09:05 102 H 08/01/23 09:02 102 H 113/57 L 08/01/23 08:36 97.1 F L 92 18 110/48 L 98 08/01/23 08:25 95 Room Air 08/01/23 05:20 97.8 F 86 18 105/53 L 98 07/31/23 21:25 116 H 07/31/23 21:00 98.1 F 116 H 18 112/55 L 91 07/31/23 18:30 97.7 F 87 20 126/58 L 100 07/31/23 17:40 Room Air 07/31/23 18:00 97.6 F 85 21 H 133/62 94 07/31/23 17:45 97.6 F 96 20 126/97 H 90 Intake/Output Intake/Output: Intake & Output 07/29/23 07/30/23 07/31/23 08/01/23 23:59 23:59 23:59 23:59 Intake Total 590 2022 2990 Output Total 0 3375 1425 Balance 590 -1353 1565 Meds/Results Medications: Active Medications Generic Name Dose Route Start Last Admin Trade Name Freq PRN Reason Stop Dose Admin Acetaminophen 650 mg 07/30/23 21:21 Acetaminophen 325 Mg Tablet PO Q6H PRN Mild Pain (1-3) or Fever Hydrocodone Bitart/Acetaminophen 1 tab 07/31/23 17:26 07/31/23 22:39 Hydrocodone/Acetaminophen (*Crx) 5-325 Mg Tablet PO 1 tab Q4H PRN Administration Pain Rated 4-6 Amlodipine Besylate 10 mg 07/31/23 09:00 08/01/23 09:06 Amlodipine Besylate 5 Mg Tablet PO 10 mg DAILY ZONIA Administration Atorvastatin Calcium 40 mg 07/30/23 21:00 07/31/23 21:25 Atorvastatin 40 Mg Tablet PO 40 mg QHS ZONIA Administration Carvedilol 25 mg 07/31/23 09:00 08/01/23 09:05 Carvedilol 25 Mg Tablet PO 25 mg Q12HR ZONIA Administration Metronidazole 500 mg in 100 mls @ 100 mls/hr 07/31/23 10:00 08/01/23 12:49 Flagyl 500 Mg/Iso Soln 100 Ml IVPB Infused Q8H ZONIA Infusion Doxycycline Hyclate 100 mg in 100 mls @ 100 mls/hr 07/31/23 14:10 08/01/23 10:06 Vibramycin 100 Mg/Ns 100 Ml IVPB Infused Q12HR ZONIA Infusion Cefepime HCl 2 gm in 50 mls @ 100 mls/hr 08/01/23 10:00 08/01/23 10:55 Maxipime 2 Gm/Ns 50 Ml IVPB 100 mls/hr Q12HR ZONIA Administration Lisinopril 30 mg 07/30/23 21:00 07/31/23 21:25 Lisinopril 10 Mg Tablet PO 30 mg QHS ZONIA Admi
--- NOTE | 2023-08-01 11:11 | P.PNNP_ITS ---
Progress Note: A&P Assessment and Plan (1) Hyponatremia: Code(s): E87.1 - Hypo-osmolality and hyponatremia Status: Acute Assessment and Plan: * stable if not better * appears acute * no evidence of low sodium levels on monthly labs done by his transplant team * presumably related to pain +/- infection of left foot * relatively stable at this time * evaluation to date: * TSH okay * cortisol stable * urine electrolytes non-prerena; * SPEP and UPEP pending * follow trend of repeat sodium levels (2) History of kidney transplant: Onset Date: 12/2015 Code(s): Z94.0 - Kidney transplant status Status: Chronic Assessment and Plan: * normal allograft function * continue current immunosuppression * follow renal function (3) Wound of left foot: Code(s): S91.302A - Unspecified open wound, left foot, initial encounter Status: Acute Assessment and Plan: * complicated by cellulitis * Surgery following * status post complex incision and?drainage of left forefoot abscess (on 07/31) * continue IV antibiotics * Orthopedics consulted * follow culture data Will continue to follow. Subjective Date/time seen: 08/01/23 11:11 Interval history: Follow-up for hyponatremia and known history of renal transplanatation. Tolerated surgery yesterday afternoon on his left foot; pain control seems adequate; no apparent distress noted; renal function remains stable; no other acute complaints voiced. Exam Narrative: General: WD/WN male in NAD Heart: normal S1 and S2; no rub Lungs: clear to auscultation Abdomen: soft, nontender, nondistended, positive bowel sounds Extremities: no cyanosis or clubbing; no edema Skin: left foot dressings/drains in place Objective Data Vital Signs Vital Signs: Vital Signs Temp Pulse Resp BP Pulse Ox O2 Del Method 08/01/23 10:58 97.1 F L 73 18 121/91 H 98 08/01/23 09:05 102 H 08/01/23 09:02 102 H 113/57 L 08/01/23 08:36 97.1 F L 92 18 110/48 L 98 08/01/23 08:25 95 Room Air 08/01/23 05:20 97.8 F 86 18 105/53 L 98 07/31/23 21:25 116 H 07/31/23 21:00 98.1 F 116 H 18 112/55 L 91 07/31/23 18:30 97.7 F 87 20 126/58 L 100 07/31/23 17:40 Room Air 07/31/23 18:00 97.6 F 85 21 H 133/62 94 07/31/23 17:45 97.6 F 96 20 126/97 H 90 Intake/Output Intake/Output: Intake & Output 07/29/23 07/30/23 07/31/23 08/01/23 23:59 23:59 23:59 23:59 Intake Total 590 2022 2990 Output Total 0 3375 1425 Balance 590 -4103 1565 Meds/Results Medications: Active Medications Generic Name Dose Route Start Last Admin Trade Name Freq PRN Reason Stop Dose Admin Acetaminophen 650 mg 07/30/23 21:21 Acetaminophen 325 Mg Tablet PO Q6H PRN Mild Pain (1-3) or Fever Hydrocodone Bitart/Acetaminophen 1 tab 07/31/23 17:26 07/31/23 22:39 Hydrocodone/Acetaminophen (*Crx) 5-325 Mg Tablet PO 1 tab Q4H PRN Administration Pain Rated 4-6 Amlodipine Besylate 10 mg 07/31/23 09:00 08/01/23 09:06 Amlodipin
--- NOTE | 2023-08-01 14:43 | WPDPN ---
Progress Note: A&P Assessment and Plan (1) Wound of left foot: Code(s): S91.302A - Unspecified open wound, left foot, initial encounter Status: Acute Assessment and Plan: Postop day 1 status post complex incision and drainage of left forefoot abscess. Patient has group B Streptococcus culture from the wound so far. Continue broad-spectrum IV antibiotic coverage. Continue daily dressing changes. Ambulate with only weight-bearing on the left heel. Consultation to orthopedic surgery to see if any further surgical drainage is needed is pending. Subjective Date/time seen: 08/01/23 14:43 Interval history: Patient doing well today. States that the pain in his foot is better. No fever overnight. He is eating well. White blood count is normal. Exam Extrem: Other: Left foot still has mild erythema over the medial aspect of the left forefoot. [place]ia drains are in place. No further purulent drainage from the wounds. Objective Data Vital Signs Vital Signs: Vital Signs - 24 hr 07/31/23 16:39 07/31/23 16:45 07/31/23 17:00 Temperature 36.2 C L Pulse Rate 73 74 74 Respiratory Rate 17 19 20 Blood Pressure 104/52 L 104/63 110/57 L Pulse Oximetry 97 97 98 Oxygen Delivery Room Air Room Air Room Air 07/31/23 17:15 07/31/23 17:45 07/31/23 18:00 Temperature 36.4 C 36.4 C Pulse Rate 77 96 85 Respiratory Rate 20 20 21 H Blood Pressure 118/68 126/97 H 133/62 Pulse Oximetry 98 90 94 Oxygen Delivery Room Air 07/31/23 17:40 07/31/23 18:30 07/31/23 21:00 Temperature 36.5 C 36.7 C Pulse Rate 87 116 H Respiratory Rate 20 18 Blood Pressure 126/58 L 112/55 L Pulse Oximetry 100 91 Oxygen Delivery Room Air 07/31/23 21:25 08/01/23 05:20 08/01/23 08:25 Temperature 36.6 C Pulse Rate 116 H 86 Respiratory Rate 18 Blood Pressure 105/53 L Pulse Oximetry 98 95 Oxygen Delivery Room Air 08/01/23 08:36 08/01/23 09:02 08/01/23 09:05 Temperature 36.2 C L Pulse Rate 92 102 H 102 H Respiratory Rate 18 Blood Pressure 110/48 L 113/57 L Pulse Oximetry 98 Oxygen Delivery 08/01/23 13:58 Temperature 36.2 C L Pulse Rate 73 Respiratory Rate 18 Blood Pressure 121/91 H Pulse Oximetry 98 Oxygen Delivery Intake/Output Intake/Output: Intake & Output 07/29/23 07/30/23 07/31/23 08/01/23 23:59 23:59 23:59 23:59 Intake Total 590 2022 2990 Output Total 0 3375 1425 Balance 590 -1353 1565 Meds/Results Medications: Active Medications Generic Name Dose Route Start Last Admin Trade Name Freq PRN Reason Stop Dose Admin Acetaminophen 650 mg 07/30/23 21:21 Acetaminophen 325 Mg Tablet PO Q6H PRN Mild Pain (1-3) or Fever Hydrocodone Bitart/Acetaminophen 1 tab 07/31/23 17:26 07/31/23 22:39 Hydrocodone/Acetaminophen (*Crx) 5-325 Mg Tablet PO 1 tab Q4H PRN Administration Pain Rated 4-6 Amlodipine Besylate 10 mg 07/31/23 09:00 08/01/23 09:06 Amlodipine Besylate 5 Mg Tablet PO 10 mg DAILY ZONIA Administration Atorvastatin Calcium 40 mg 07/30/23 21:00 07/31/23 21:25 Atorvastatin 40 Mg Tablet PO 40 mg QHS ZONIA Administration Carvedilol 25 mg 07/31/23 09:00 08/01/23 09:05 Carvedilol 25 Mg Tablet PO 25 mg Q12HR ZONIA Administration Sodium Chloride 1,000 mls @ 100 mls/hr 07/31/23 08:25 08/01/23 09:06 Normal Saline Iv IV CONT 100 mls/hr .Q10H ZONIA Administration Metronidazole 500 mg in 100 mls @ 100 mls/hr 07/31/23 10:00 08/01/23 12:49 Flagyl 500 Mg/Iso Soln 100 Ml IVPB Infused Q8H ZONIA Infusion Doxycycline Hyclate 100 mg in 100 mls @ 100 mls/hr 07/31/23 14:10 08/01/23 10:06 Vibramycin 100 Mg/Ns 100 Ml IVPB Infused Q12HR ZONIA Infusion Cefepime HCl 2 gm in 50 mls @ 100 mls/hr 08/01/23 10:00 08/01/23 10:55 Maxipime 2 Gm/Ns 50 Ml IVPB 100 mls/hr Q12HR ZONIA Administration Lisinopril 30 mg 07/30/23 21:00 07/31/23 21:25 Lisinopril 10 Mg Tablet PO 30 mg
--- NOTE | 2023-08-01 15:59 | PM.CNOR ---
Assessment and Plan Assessment and plan (1) Wound of left foot: Code(s): S91.302A - Unspecified open wound, left foot, initial encounter Status: Acute Assessment and Plan: Orthopedic consult requested for 2nd opinion regarding neuropathic ulcer of the left foot s/p surgical intervention by Dr. Brock. Left foot dressing removed. Wound on the plantar aspect of the 1st MTP joint as well as medial aspect of the 1st metatarsal head noted. [place] drain in place. Discoloration to the distal great toe and erythema extending to the first cuneiform. No malodor. No obvious purulence. History, exam, radiographs and MRI reviewed with the patient. Operative findings by Dr. Brock reviewed as well. Given patient's history of renal cell carcinoma and chronic immunosuppression as well as neuropathy and location of current wounds, the ability to salvage the left foot may be difficult. Patient may ultimately require left [id number] amputation. Patient would likely benefit from return to OR for further debridement. Prior to proceeding with further surgical intervention, would recommend bilateral lower extremity ABIs due to inability to palpate pedal pulse. Will await blood flow studies. May require vascular surgery referral. Will discuss further surgical intervention of debridement vs. 1st Ray Amputation vs. TMA vs. BKA with Dr. Cosme on 08/04/2023. Continue current dressing changes under the direction of the general surgery team. IV antibiotics per the medicine team, general surgery and ID pharm. Thank you for allowing us to assist in the care of this patient. (2) Chronic atrial fibrillation: Code(s): I48.20 - Chronic atrial fibrillation, unspecified Status: Acute (3) Immunosuppressed status: Code(s): D84.9 - Immunodeficiency, unspecified Status: Acute Assessment and Plan: History of kidney transplant. On immunosuppressants. (4) Prediabetes: Code(s): R73.03 - Prediabetes Status: Acute Assessment and Plan: Most recent HgB A1C >6%. Not currently on diabetic regimen. (5) Peripheral vascular disease: Code(s): I73.9 - Peripheral vascular disease, unspecified Status: Acute Assessment and Plan: ABIs ordered for further evaluation. 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 History of Present Illness HPI Consult date: 08/01/23 Requesting physician: Jim Brock MD Consult reason: other (Left foot abscess, septic 1st MP joint, possible osteomyelitis) Chief complaint: infected foot wound Narrative: 68-year-old male with a history of coronary artery disease, hypertension, hyperlipidemia, AFib on chronic anticoagulation, renal cell carcinoma status post nephrectomy, end-stage renal disease on hemodialysis prior to transplant in 2015 by [facility], now on immunosuppressant and obstructive sleep apnea presented to the ER after evaluation from his primary care's office, Dr. Roberts, for a left foot ulcer. Per the patient, he has always had a corn on the plantar aspect of the left great toe. To note, there is evidence of of pressure on the plantar aspect of the 1st MTP joint of the right foot as well. Approximately 2 weeks ago he noticed a blood blister on the medial aspect of the hallux and attempted to care for it independently but this was worsening. Patient did deny fever, chills, night sweats, nausea, vomiting and diarrhea. Radiographs in the emergency room revealed no fi
[2023-08-01] MEDS: lisinopriL 10 MG TABLET 30 MG PO (21:13)
[2023-08-01] MEDS: TAMSULOSIN HCL 0.4 MG CAPSULE PO (21:13)
[2023-08-01] MEDS: ATORVASTATIN 40 MG TABLET PO (21:13)
[2023-08-02] VITALS (7 sets, daily range): BP systolic 102–138; BP diastolic 55–73; PULSE 70–87; RESP 16–20; TEMP 36.1–36.8; O2SAT 96–100
[2023-08-02] MEDS: metroNIDAZOLE 500 MG/ISO 100ML 500 MG/100 ML BAG 100 MG IVPB ×3 (01:52→17:36)
[2023-08-02 05:22] LABS: Basophils Percent Auto 0.1 % (0.2-1.2); Eosinophils Percent Auto 0.1 % (0-4.4); Hematocrit 31.5 % (42.0-52.0); Immature Granulocyte Absolute 0.06 K/mm3 (0.00-0.031); Immature Granulocyte Percent A 0.8 % (0-0.5); Lymphocytes Absolute Auto 0.39 K/mm3 (0.9-3.2); Lymphocytes Percent Auto 5.4 % (18.3-44.2); Mean Corpuscular HGB Conc 31.7 g/dl (32-36); Mean Corpuscular Hemoglobin 29.9 pg (26-34); Mean Platelet Volume 8.7 fl (7.4-10.4); Monocytes Absolute Auto 0.6 K/mm3 (0.1-0.6); Monocytes Percent Auto 8.4 % (2.6-8.5); Neutrophils Absolute Auto 6.2 K/mm3 (1.3-6.7); Neutrophils Percent Auto 85.2 % (45.5-73.1); Platelet Count Result 155 k/mm3 (150-375); Red Blood Count 3.35 M/mm3 (4.6-6.20); Red Cell Distribution Width 14.4 % (11.5-14.5); White Blood Count 7.3 K/mm3 (4.5-10.0)
[2023-08-02 05:32] LABS: Alanine Aminotransferase 22 U/L (6-50); Albumin Level 2.2 g/dL (3.5-5.1); Alkaline Phosphatase 75 U/L (38-126); Anion Gap 1 mmol/L (8-16); Aspartate Amino Transferase 26 U/L (17-59); Bilirubin,Total 0.7 mg/dL (0.2-1.3); Blood Urea Nitrogen 16 mg/dL (9-20); Calcium 9.2 mg/dL (8.4-10.2); Carbon Dioxide 22 mmol/L (22-30); Chloride 107 mmol/L (98-107); Estimated CRCL calculation 81 ml/min; Estimated Glomerular Filt Rate > 60; Glucose 110 mg/dL (65-110); Potassium 4.5 mmol/L (3.4-5.0); Sodium 130 mmol/L (137-145)
--- NOTE | 2023-08-02 07:41 | PM.IMPN ---
Progress Note: A&P Assessment and Plan (1) Cellulitis of left foot: Code(s): L03.116 - Cellulitis of left lower limb Status: Acute (2) Wound of left foot: Code(s): S91.302A - Unspecified open wound, left foot, initial encounter Status: Acute (3) Prediabetes: Code(s): R73.03 - Prediabetes Status: Acute (4) Hyponatremia: Code(s): E87.1 - Hypo-osmolality and hyponatremia Status: Acute (5) Immunosuppressed status: Code(s): D84.9 - Immunodeficiency, unspecified Status: Acute (6) Chronic atrial fibrillation: Code(s): I48.20 - Chronic atrial fibrillation, unspecified Status: Acute Plan This is a very pleasant 68-year-old male multiple medical problems including coronary artery disease, hypertension, hyperlipidemia, atrial fibrillation on chronic anticoagulation, renal cell carcinoma status post nephrectomy, end-stage renal disease on hemodialysis prior to transplant in 2016 on immunosuppressant, and obstructive sleep apnea who presented to the emergency department for evaluation of a left foot wound.? Cellulitis of left foot infected wound with surrounding cellulitis. started on levofloxacin and metronidazole in the emergency department and we will continue with this, and add doxy 100 mg q12h iv pending wound culture. Dr. Brock has been consulted as he will likely need debridement of the wound. f/u MRSA 08/01 S/P Complex incision and drainage of left forefoot abscess D1, wound culture pending, discontinue vancomycin Levaquin, continue doxy and cefepime 08/02: Afebrile overnight, wound culture grows RESULT: Skin hollie also present. ISOLATE 1: Scant growth of Group B Streptococcus isolated Beta-hemolytic streptococci are predictably susceptible to Penicillin and other beta-lactams. Continue current treatment with antibiotics History of atrial fibrillation Xarelto has been placed on hold in anticipation of probable surgery. Atrial fibrillation is rate controlled on carvedilol which will be continued. Follow-up EKG: AFib, rate is controlled 81 Start Lovenox 1 milligram/kilos q.12 hour for bridging, will resume Xarelto when it is okay for general surgeon Type 2 diabetes Hemoglobin A1c today is 6.3%, morning glucose 107 prediabetic. 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 End-stage renal disease status post renal transplantation, hyponatremia Creatinine stable Continue mycophenolate and prednisone. 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 Subjective Date/time seen: 08/02/23 07:41 Interval history: I saw exam patient today, patient is afebrile, blood pressure is on the lower side, no O2 desaturation on room air. Right foot pain is tolerable, 1 culture grows mixture bacteria, including group B Streptococcus Exam Narrative: General: A well-developed, nontoxic-appearing gentleman sitting up in bed in no acute distress. Weight: 106.9 kg. BMI: 32.0. HEENT: PERRL, EOMI. Sclera anicteric. Oral mucosa moist. Neck: Supple. Respiratory: Lungs are clear to auscultation bilaterally. Cardiovascular: Irregularly irregular rate and rhythm. Gastrointestinal: Abdomen is soft, nontender, and nondistended with positive bowel sounds. Skin: Tender swelling and erythema of the of left foot chronic wound on the medial aspect of the left foot w/ tunnel to another wound active pus draining from plantar surface. Status post debridement 07/31. Wound is well dressed, dressing is dry and clean Extremities: No cyanosis or clubbing. Mild edema of the left lower leg, vein graft for bypass surgery. Radial pulses 2+. Pedal pulses heard with Doppler. Neurological: Alert. Cranial nerves 2-12 are grossl
[2023-08-02] MEDS: predniSONE 5 MG TABLET PO (08:03)
[2023-08-02] MEDS: CHOLECALCIFEROL 1,000 UNITS TABLET 2000 UNITS PO (08:03)
[2023-08-02] MEDS: carvediloL 25 MG TABLET PO ×2 (08:04→21:18)
[2023-08-02] MEDS: amLODIPine BESYLATE 5 MG TABLET 10 MG PO (08:04)
[2023-08-02] MEDS: CEFEPIME 2 GM/NS 50 ML 2 GM/50 ML BAG IVPB ×2 (08:05→21:23)
[2023-08-02] MEDS: ACIDOPHILUS/BULGARICUS CHEWABLE TABLET 2 TABLET PO (08:05)
[2023-08-02] MEDS: MYCOPHENOLATE SODIUM 360 MG 360 EACH PO ×2 (08:06→17:36)
[2023-08-02] MEDS: DOXYCYCLINE 100 MG/NS 100 ML 100 MG/100 ML BAG IVPB ×2 (08:45→21:52)
--- NOTE | 2023-08-02 12:34 | P.PNNP_ITS ---
Progress Note: A&P Assessment and Plan (1) Hyponatremia: Code(s): E87.1 - Hypo-osmolality and hyponatremia Status: Acute Assessment and Plan: * stable if not better * appears acute * no evidence of low sodium levels on monthly labs done by his transplant team * presumably related to pain +/- infection of left foot * relatively stable at this time * evaluation to date: * TSH okay * cortisol stable * urine electrolytes non-prerena; * SPEP and UPEP pending * follow trend of repeat sodium levels (2) History of kidney transplant: Onset Date: 12/2015 Code(s): Z94.0 - Kidney transplant status Status: Chronic Assessment and Plan: * normal allograft function * continue current immunosuppression * follow renal function (3) Wound of left foot: Code(s): S91.302A - Unspecified open wound, left foot, initial encounter Status: Acute Assessment and Plan: * complicated by cellulitis * Surgery following * status post complex incision and?drainage of left forefoot abscess (on 07/31) * continue IV antibiotics * Orthopedics recommendations noted * culture data noted Will continue to follow. Subjective Date/time seen: 08/02/23 12:34 Interval history: Follow-up for hyponatremia and known history of renal transplanatation. Continues to do fairly well at the time of my visit; no apparent distress noted; feels reasonably well; no issues/events overnight or earlier this morning. Exam Narrative: General: WD/WN male in NAD Heart: normal S1 and S2; no rub Lungs: clear to auscultation Abdomen: soft, nontender, nondistended, positive bowel sounds Extremities: no cyanosis or clubbing; no edema Skin: left foot dressings/drains noted Objective Data Vital Signs Vital Signs: Vital Signs Temp Pulse Resp BP Pulse Ox 08/02/23 12:23 97 F L 74 16 127/64 100 08/02/23 10:11 97.6 F 70 20 102/56 L 100 08/02/23 08:04 79 08/02/23 05:51 98.1 F 79 20 113/73 96 08/02/23 00:03 98.3 F 87 20 138/55 L 99 08/01/23 21:19 98.4 F 76 20 122/60 93 08/01/23 21:13 92 08/01/23 18:17 97.0 F L 92 18 109/48 L 100 Intake/Output Intake/Output: Intake & Output 07/30/23 07/31/23 08/01/23 08/02/23 23:59 23:59 23:59 23:59 Intake Total 590 2022 3530 1210 Output Total 0 3375 1825 1770 Balance 590 -1353 1705 -560 Meds/Results Medications: Active Medications Generic Name Dose Route Start Last Admin Trade Name Freq PRN Reason Stop Dose Admin Acetaminophen 650 mg 07/30/23 21:21 Acetaminophen 325 Mg Tablet PO Q6H PRN Mild Pain (1-3) or Fever Hydrocodone Bitart/Acetaminophen 1 tab 07/31/23 17:26 07/31/23 22:39 Hydrocodone/Acetaminophen (*Crx) 5-325 Mg Tablet PO 1 tab Q4H PRN Administration Pain Rated 4-6 Amlodipine Besylate 10 mg 07/31/23 09:00 08/02/23 08:04 Amlodipine Besylate 5 Mg Tablet PO 10 mg DAILY ZOINA Administration Atorvastatin Calcium 40 mg 07/30/23 21:00 08/01/23 21:13 Atorvastatin 40 Mg Tablet PO 40 mg QHS ZONIA Administration
--- NOTE | 2023-08-02 12:34 | PM.PNNEP ---
Progress Note: A&P Assessment and Plan (1) Hyponatremia: Code(s): E87.1 - Hypo-osmolality and hyponatremia Status: Acute Assessment and Plan: stable if not better appears acute no evidence of low sodium levels on monthly labs done by his transplant team presumably related to pain +/- infection of left foot relatively stable at this time evaluation to date: TSH okay cortisol stable urine electrolytes non-prerena; SPEP and UPEP pending follow trend of repeat sodium levels (2) History of kidney transplant: Onset Date: 12/2015 Code(s): Z94.0 - Kidney transplant status Status: Chronic Assessment and Plan: normal allograft function continue current immunosuppression follow renal function (3) Wound of left foot: Code(s): S91.302A - Unspecified open wound, left foot, initial encounter Status: Acute Assessment and Plan: complicated by cellulitis Surgery following status post complex incision and?drainage of left forefoot abscess (on 07/31) continue IV antibiotics Orthopedics recommendations noted culture data noted Will continue to follow. Subjective Date/time seen: 08/02/23 12:34 Interval history: Follow-up for hyponatremia and known history of renal transplanatation. Continues to do fairly well at the time of my visit; no apparent distress noted; feels reasonably well; no issues/events overnight or earlier this morning. Exam Narrative: General: WD/WN male in NAD Heart: normal S1 and S2; no rub Lungs: clear to auscultation Abdomen: soft, nontender, nondistended, positive bowel sounds Extremities: no cyanosis or clubbing; no edema Skin: left foot dressings/drains noted Objective Data Vital Signs Vital Signs: Vital Signs Temp Pulse Resp BP Pulse Ox 08/02/23 12:23 97 F L 74 16 127/64 100 08/02/23 10:11 97.6 F 70 20 102/56 L 100 08/02/23 08:04 79 08/02/23 05:51 98.1 F 79 20 113/73 96 08/02/23 00:03 98.3 F 87 20 138/55 L 99 08/01/23 21:19 98.4 F 76 20 122/60 93 08/01/23 21:13 92 08/01/23 18:17 97.0 F L 92 18 109/48 L 100 Intake/Output Intake/Output: Intake & Output 07/30/23 07/31/23 08/01/23 08/02/23 23:59 23:59 23:59 23:59 Intake Total 590 2022 3530 1210 Output Total 0 3375 1825 1770 Balance 590 -1353 1705 -560 Meds/Results Medications: Active Medications Generic Name Dose Route Start Last Admin Trade Name Freq PRN Reason Stop Dose Admin Acetaminophen 650 mg 07/30/23 21:21 Acetaminophen 325 Mg Tablet PO Q6H PRN Mild Pain (1-3) or Fever Hydrocodone Bitart/Acetaminophen 1 tab 07/31/23 17:26 07/31/23 22:39 Hydrocodone/Acetaminophen (*Crx) 5-325 Mg Tablet PO 1 tab Q4H PRN Administration Pain Rated 4-6 Amlodipine Besylate 10 mg 07/31/23 09:00 08/02/23 08:04 Amlodipine Besylate 5 Mg Tablet PO 10 mg DAILY ZONIA Administration Atorvastatin Calcium 40 mg 07/30/23 21:00 08/01/23 21:13 Atorvastatin 40 Mg Tablet PO 40 mg QHS ZONIA Administration Carvedilol 25 mg 07/31/23 09:00 08/02/23 08:04 Carvedilol 25 Mg Tablet PO 25 mg Q12HR ZONIA Administration Enoxaparin Sodium 110 mg 08/02/23 21:00 Enoxaparin 120 Mg/0.8 Ml Syringe SUB-Q Q12HR ZONIA Metronidazole 500 mg in 100 mls @ 100 mls/hr 07/31/23 10:00 08/02/23 17:36 Flagyl 500 Mg/Iso Soln 100 Ml IVPB 100 mls/hr Q8H ZONIA Administration Doxycycline Hyclate 100 mg in 100 mls @ 100 mls/hr 07/31/23 14:10 08/02/23 09:45 Vibramycin 100 Mg/Ns 100 Ml IVPB Infused Q12HR ZONIA Infusion Cefepime HCl 2 gm in 50 mls @ 100 mls/hr 08/01/23 10:00 08/02/23 08:35 Maxipime 2 Gm/Ns 50 Ml IVPB Infused Q12HR ZONIA Infusion Lactobacillus Acidophilus 2 tablet 08/02/23 09:00 08/02/23 08:05 Acidophilus/[place] Chewable Tablet PO 2 tablet DAILY ZONIA Administration Lisinopril 30 mg 07/30/23 21:00
--- NOTE | 2023-08-02 13:08 | PM.PNGS ---
Progress Note: A&P Assessment and Plan (1) Wound of left foot: Code(s): S91.302A - Unspecified open wound, left foot, initial encounter Status: Acute Assessment and Plan: Continue local wound care. Appreciate Ortho input. Might need to consider further debridement or amputation if wound not showing signs of improvement. PVD will make limb salvage more difficult. Might need to be evaluated by vascular surgeon. (2) Immunosuppressed status: Code(s): D84.9 - Immunodeficiency, unspecified Status: Acute (3) History of kidney transplant: Onset Date: 12/2015 Code(s): Z94.0 - Kidney transplant status Status: Acute (4) Chronic atrial fibrillation: Code(s): I48.20 - Chronic atrial fibrillation, unspecified Status: Acute (5) Peripheral vascular disease: Code(s): I73.9 - Peripheral vascular disease, unspecified Status: Acute Subjective Subjective Date/Time Seen: 08/02/23 13:08 Interval history: Doing well today. Pain controlled. No fevers. Exam Extrem: Other: Left foot dressing removed. Clever drains remain in place. Scant purulent drainage. Mild erythema along medial forefoot and toe. Objective Data Vital Signs Vital Signs: Vital Signs - 24 hr 08/01/23 13:58 08/01/23 18:17 08/01/23 21:13 Temperature 36.2 C L 36.1 C L Pulse Rate 73 92 92 Respiratory Rate 18 18 Blood Pressure 121/91 H 109/48 L Pulse Oximetry 98 100 08/01/23 21:19 08/02/23 00:03 08/02/23 05:51 Temperature 36.9 C 36.8 C 36.7 C Pulse Rate 76 87 79 Respiratory Rate 20 20 20 Blood Pressure 122/60 138/55 L 113/73 Pulse Oximetry 93 99 96 08/02/23 08:04 08/02/23 11:11 Temperature 36.4 C Pulse Rate 79 70 Respiratory Rate 20 Blood Pressure 102/56 L Pulse Oximetry 100 Intake/Output Intake/Output: Intake & Output 07/30/23 07/31/23 08/01/23 08/02/23 23:59 23:59 23:59 23:59 Intake Total 590 2 3530 1110 Output Total 0 1615 1825 1770 Balance 590 -1353 1705 -660 Meds/Results Medications: Active Medications Generic Name Dose Route Start Last Admin Trade Name Freq PRN Reason Stop Dose Admin Acetaminophen 650 mg 07/30/23 21:21 Acetaminophen 325 Mg Tablet PO Q6H PRN Mild Pain (1-3) or Fever Hydrocodone Bitart/Acetaminophen 1 tab 07/31/23 17:26 07/31/23 22:39 Hydrocodone/Acetaminophen (*Crx) 5-325 Mg Tablet PO 1 tab Q4H PRN Administration Pain Rated 4-6 Amlodipine Besylate 10 mg 07/31/23 09:00 08/02/23 08:04 Amlodipine Besylate 5 Mg Tablet PO 10 mg DAILY ZONIA Administration Atorvastatin Calcium 40 mg 07/30/23 21:00 08/01/23 21:13 Atorvastatin 40 Mg Tablet PO 40 mg QHS ZONIA Administration Carvedilol 25 mg 07/31/23 09:00 08/02/23 08:04 Carvedilol 25 Mg Tablet PO 25 mg Q12HR ZONIA Administration Enoxaparin Sodium 110 mg 08/02/23 21:00 Enoxaparin 120 Mg/0.8 Ml Syringe SUB-Q Q12HR ZONIA Metronidazole 500 mg in 100 mls @ 100 mls/hr 07/31/23 10:00 08/02/23 10:50 Flagyl 500 Mg/Iso Soln 100 Ml IVPB Infused Q8H ZONIA Infusion Doxycycline Hyclate 100 mg in 100 mls @ 100 mls/hr 07/31/23 14:10 08/02/23 09:45 Vibramycin 100 Mg/Ns 100 Ml IVPB Infused Q12HR ZONIA Infusion Cefepime HCl 2 gm in 50 mls @ 100 mls/hr 08/01/23 10:00 08/02/23 08:35 Maxipime 2 Gm/Ns 50 Ml IVPB Infused Q12HR ZONIA Infusion Lactobacillus Acidophilus 2 tablet 08/02/23 09:00 08/02/23 08:05 Acidophilus/[place] Chewable Tablet PO 2 tablet DAILY ZONIA Administration Lisinopril 30 mg 07/30/23 21:00 08/01/23 21:13 Lisinopril 10 Mg Tablet PO 30 mg QHS ZONIA Administration Mycophenolate Sodium 360 mg 07/31/23 10:00 08/02/23 08:06 360 Mg Tablet, PO 08/30/23 09:59 360 mg Delayed Release (Dr/ BID@0900,1800 ZONIA Administration Ec) Prednisone 5 mg 07/31/23 09:00 08/02/23 08:03 Prednisone 5 Mg Tablet PO 5 mg DAILY [facility] Administration Senna 8.
[2023-08-02 20:16] LABS: Osmolality, Urine 302 mOsm/kg (50-1200)
[2023-08-02] MEDS: ATORVASTATIN 40 MG TABLET PO (21:18)
[2023-08-02] MEDS: ENOXAPARIN 120 MG/0.8 ML SYRINGE 110 MG SUB-Q (21:26)
[2023-08-02] MEDS: TAMSULOSIN HCL 0.4 MG CAPSULE PO (21:30)
[2023-08-02] MEDS: lisinopriL 10 MG TABLET 30 MG PO (21:30)
[2023-08-03] VITALS (8 sets, daily range): BP systolic 102–134; BP diastolic 46–70; PULSE 74–94; RESP 16–20; TEMP 35.8–36.8; O2SAT 97–99
[2023-08-03] MEDS: metroNIDAZOLE 500 MG/ISO 100ML 500 MG/100 ML BAG 100 MG IVPB ×3 (02:39→18:01)
[2023-08-03 05:16] LABS: Basophils Percent Auto 0.3 % (0.2-1.2); Eosinophils Percent Auto 0.5 % (0-4.4); Hematocrit 34.2 % (42.0-52.0); Immature Granulocyte Absolute 0.07 K/mm3 (0.00-0.031); Immature Granulocyte Percent A 0.9 % (0-0.5); Lymphocytes Absolute Auto 0.55 K/mm3 (0.9-3.2); Lymphocytes Percent Auto 7.4 % (18.3-44.2); Mean Corpuscular HGB Conc 32.2 g/dl (32-36); Mean Corpuscular Hemoglobin 29.9 pg (26-34); Mean Corpuscular Volume 92.9 fl (80-100); Mean Platelet Volume 8.8 fl (7.4-10.4); Monocytes Absolute Auto 0.6 K/mm3 (0.1-0.6); Monocytes Percent Auto 7.9 % (2.6-8.5); Neutrophils Absolute Auto 6.2 K/mm3 (1.3-6.7); Platelet Count Result 160 k/mm3 (150-375); Red Blood Count 3.68 M/mm3 (4.6-6.20); Red Cell Distribution Width 14.4 % (11.5-14.5); White Blood Count 7.5 K/mm3 (4.5-10.0)
[2023-08-03 05:29] LABS: Alanine Aminotransferase 30 U/L (6-50); Albumin Level 2.4 g/dL (3.5-5.1); Alkaline Phosphatase 84 U/L (38-126); Anion Gap 2 mmol/L (8-16); Aspartate Amino Transferase 42 U/L (17-59); Bilirubin,Total 0.7 mg/dL (0.2-1.3); Blood Urea Nitrogen 14 mg/dL (9-20); Calcium 9.4 mg/dL (8.4-10.2); Carbon Dioxide 21 mmol/L (22-30); Chloride 109 mmol/L (98-107); Estimated CRCL calculation 91 ml/min; Estimated Glomerular Filt Rate > 60; Glucose 102 mg/dL (65-110); Potassium 4.5 mmol/L (3.4-5.0); Sodium 132 mmol/L (137-145)
[2023-08-03] MEDS: carvediloL 25 MG TABLET PO ×2 (08:15→20:23)
[2023-08-03] MEDS: predniSONE 5 MG TABLET PO (08:15)
[2023-08-03] MEDS: CHOLECALCIFEROL 1,000 UNITS TABLET 2000 UNITS PO (08:15)
[2023-08-03] MEDS: ACIDOPHILUS/BULGARICUS CHEWABLE TABLET 2 TABLET PO (08:15)
[2023-08-03] MEDS: amLODIPine BESYLATE 5 MG TABLET 10 MG PO (08:15)
[2023-08-03] MEDS: MYCOPHENOLATE SODIUM 360 MG 360 EACH PO ×2 (08:16→18:01)
[2023-08-03] MEDS: ENOXAPARIN 120 MG/0.8 ML SYRINGE 110 MG SUB-Q ×2 (08:16→20:24)
[2023-08-03] MEDS: CEFEPIME 2 GM/NS 50 ML 2 GM/50 ML BAG IVPB ×2 (08:17→21:23)
[2023-08-03] MEDS: DOXYCYCLINE 100 MG/NS 100 ML 100 MG/100 ML BAG IVPB ×2 (09:45→20:24)
--- NOTE | 2023-08-03 12:10 | P.PNNP_ITS ---
Progress Note: A&P Assessment and Plan (1) Hyponatremia: Code(s): E87.1 - Hypo-osmolality and hyponatremia Status: Acute Assessment and Plan: * stable if not better * appears acute * no evidence of low sodium levels on monthly labs done by his transplant team * presumably related to pain +/- infection of left foot * relatively stable at this time * evaluation to date: * TSH okay * cortisol stable * urine electrolytes non-prerena; * SPEP and UPEP pending * follow trend of repeat sodium levels (2) History of kidney transplant: Onset Date: 12/2015 Code(s): Z94.0 - Kidney transplant status Status: Chronic Assessment and Plan: * normal allograft function * continue current immunosuppression * follow renal function (3) Wound of left foot: Code(s): S91.302A - Unspecified open wound, left foot, initial encounter Status: Acute Assessment and Plan: * complicated by cellulitis * Surgery following * status post complex incision and?drainage of left forefoot abscess (on 07/31) * continue IV antibiotics * Orthopedics recommendations noted * culture data noted Not much else to add -- will continue to follow from a distance. Subjective Date/time seen: 08/03/23 12:10 Interval history: Follow-up for hyponatremia and known history of renal transplanatation. No new issues or problems to report at this time; pain control appears satisfactory; no other issues/events overnight or earlier this morning; feels pretty good. Exam Narrative: General: WD/WN male in NAD Heart: normal S1 and S2; no rub Lungs: clear to auscultation Abdomen: soft, nontender, nondistended, positive bowel sounds Extremities: no cyanosis or clubbing; no edema Skin: left foot dressings/drains apparent Objective Data Vital Signs Vital Signs: Vital Signs Temp Pulse Resp BP Pulse Ox O2 Del Method 08/03/23 12:06 97.4 F L 74 16 122/65 97 08/03/23 10:18 97.2 F L 79 18 106/46 L 99 08/03/23 08:15 84 08/03/23 04:00 97.1 F L 84 16 112/70 97 08/03/23 00:00 96.4 F L 85 18 102/60 99 08/02/23 20:00 97 Room Air 02/24/24 21:18 70 08/02/23 20:00 97.1 F L 73 18 120/64 97 Intake/Output Intake/Output: Intake & Output 07/31/23 08/01/23 08/02/23 08/03/23 23:59 23:59 23:59 23:59 Intake Total 20210 1660 1440 Output Total 3375 1825 2420 600 Balance -1353 1705 -760 840 Meds/Results Medications: Active Medications Generic Name Dose Route Start Last Admin Trade Name Freq PRN Reason Stop Dose Admin Acetaminophen 650 mg 07/30/23 21:21 Acetaminophen 325 Mg Tablet PO Q6H PRN Mild Pain (1-3) or Fever Hydrocodone Bitart/Acetaminophen 1 tab 07/31/23 17:26 07/31/23 22:39 Hydrocodone/Acetaminophen (*Crx) 5-325 Mg Tablet PO 1 tab Q4H PRN Administration Pain Rated 4-6 Amlodipine Besylate 10 mg 07/31/23 09:00 08/03/23 08:15 Amlodipine Besylate 5 Mg Tablet PO 10 mg DAILY ZONIA Administration Atorvastatin Calcium 40 mg 07/30/23 21:00 08/02/23 21:18 Atorvastat
--- NOTE | 2023-08-03 12:10 | PM.PNNEP ---
Progress Note: A&P Assessment and Plan (1) Hyponatremia: Code(s): E87.1 - Hypo-osmolality and hyponatremia Status: Acute Assessment and Plan: stable if not better appears acute no evidence of low sodium levels on monthly labs done by his transplant team presumably related to pain +/- infection of left foot relatively stable at this time evaluation to date: TSH okay cortisol stable urine electrolytes non-prerena; SPEP and UPEP pending follow trend of repeat sodium levels (2) History of kidney transplant: Onset Date: 12/2015 Code(s): Z94.0 - Kidney transplant status Status: Chronic Assessment and Plan: normal allograft function continue current immunosuppression follow renal function (3) Wound of left foot: Code(s): S91.302A - Unspecified open wound, left foot, initial encounter Status: Acute Assessment and Plan: complicated by cellulitis Surgery following status post complex incision and?drainage of left forefoot abscess (on 07/31) continue IV antibiotics Orthopedics recommendations noted culture data noted Not much else to add -- will continue to follow from a distance. Subjective Date/time seen: 08/03/23 12:10 Interval history: Follow-up for hyponatremia and known history of renal transplanatation. No new issues or problems to report at this time; pain control appears satisfactory; no other issues/events overnight or earlier this morning; feels pretty good. Exam Narrative: General: WD/WN male in NAD Heart: normal S1 and S2; no rub Lungs: clear to auscultation Abdomen: soft, nontender, nondistended, positive bowel sounds Extremities: no cyanosis or clubbing; no edema Skin: left foot dressings/drains apparent Objective Data Vital Signs Vital Signs: Vital Signs Temp Pulse Resp BP Pulse Ox O2 Del Method 08/03/23 12:06 97.4 F L 74 16 122/65 97 08/03/23 10:18 97.2 F L 79 18 106/46 L 99 08/03/23 08:15 84 08/03/23 04:00 97.1 F L 84 16 112/70 97 08/03/23 00:00 96.4 F L 85 18 102/60 99 08/02/23 20:00 97 Room Air 08/02/23 21:18 70 08/02/23 20:00 97.1 F L 73 18 120/64 97 Intake/Output Intake/Output: Intake & Output 07/31/23 08/01/23 08/02/23 08/03/23 23:59 23:59 23:59 23:59 Intake Total 20210 1660 1440 Output Total 3375 1825 2420 600 Balance -1353 1705 -760 840 Meds/Results Medications: Active Medications Generic Name Dose Route Start Last Admin Trade Name Freq PRN Reason Stop Dose Admin Acetaminophen 650 mg 07/30/23 21:21 Acetaminophen 325 Mg Tablet PO Q6H PRN Mild Pain (1-3) or Fever Hydrocodone Bitart/Acetaminophen 1 tab 07/31/23 17:26 07/31/23 22:39 Hydrocodone/Acetaminophen (*Crx) 5-325 Mg Tablet PO 1 tab Q4H PRN Administration Pain Rated 4-6 Amlodipine Besylate 10 mg 07/31/23 09:00 08/03/23 08:15 Amlodipine Besylate 5 Mg Tablet PO 10 mg DAILY ZONIA Administration Atorvastatin Calcium 40 mg 07/30/23 21:00 08/02/23 21:18 Atorvastatin 40 Mg Tablet PO 40 mg QHS ZONIA Administration Carvedilol 25 mg 07/31/23 09:00 08/03/23 08:15 Carvedilol 25 Mg Tablet PO 25 mg Q12HR ZONIA Administration Enoxaparin Sodium 110 mg 08/02/23 21:00 08/03/23 08:16 Enoxaparin 120 Mg/0.8 Ml Syringe SUB-Q 110 mg Q12HR ZONIA Administration Metronidazole 500 mg in 100 mls @ 100 mls/hr 07/31/23 10:00 08/03/23 12:20 Flagyl 500 Mg/Iso Soln 100 Ml IVPB Infused Q8H ZONIA Infusion Doxycycline Hyclate 100 mg in 100 mls @ 100 mls/hr 07/31/23 14:10 08/03/23 09:45 Vibramycin 100 Mg/Ns 100 Ml IVPB 100 mls/hr Q12HR ZONIA Administration Cefepime HCl 2 gm in 50 mls @ 100 mls/hr 08/01/23 10:00 08/03/23 08:17 Maxipime 2 Gm/Ns 50 Ml IVPB 100 mls/hr Q12HR ZONIA Administration Lactobacillus Acidophilus 2 tablet 08/02/23 09:00 08/03/23 08:15 Acidophilus
--- NOTE | 2023-08-03 16:32 | PM.IMPN ---
Progress Note: A&P Assessment and Plan (1) Cellulitis of left foot: Code(s): L03.116 - Cellulitis of left lower limb Status: Acute (2) Wound of left foot: Code(s): S91.302A - Unspecified open wound, left foot, initial encounter Status: Acute (3) Prediabetes: Code(s): R73.03 - Prediabetes Status: Acute (4) Hyponatremia: Code(s): E87.1 - Hypo-osmolality and hyponatremia Status: Acute (5) Immunosuppressed status: Code(s): D84.9 - Immunodeficiency, unspecified Status: Acute (6) Chronic atrial fibrillation: Code(s): I48.20 - Chronic atrial fibrillation, unspecified Status: Acute Plan This is a very pleasant 68-year-old male multiple medical problems including coronary artery disease, hypertension, hyperlipidemia, atrial fibrillation on chronic anticoagulation, renal cell carcinoma status post nephrectomy, end-stage renal disease on hemodialysis prior to transplant in 2016 on immunosuppressant, and obstructive sleep apnea who presented to the emergency department for evaluation of a left foot wound.? Cellulitis of left foot infected wound with surrounding cellulitis. started on levofloxacin and metronidazole in the emergency department and we will continue with this, and add doxy 100 mg q12h iv pending wound culture. Dr. Brock has been consulted as he will likely need debridement of the wound. f/u MRSA 08/01 S/P Complex incision and drainage of left forefoot abscess D1, wound culture pending, discontinue vancomycin Levaquin, continue doxy and cefepime 08/02: Afebrile overnight, wound culture grows RESULT: Skin hollie also present. ISOLATE 1: Scant growth of Group B Streptococcus isolated Beta-hemolytic streptococci are predictably susceptible to Penicillin and other beta-lactams. Continue current treatment with antibiotics in the form of IV cefepime, doxycycline and metronidazole Chronic atrial fibrillation Xarelto has been placed on hold in anticipation of probable surgery. Atrial fibrillation is rate controlled on carvedilol which will be continued. Follow-up EKG: AFib, rate is controlled 81 Continue with Xarelto Type 2 diabetes Hemoglobin A1c today is 6.3%, morning glucose 107 prediabetic. dietitian and clinical educator as an outpatient. End-stage renal disease status post renal transplantation, hyponatremia Creatinine stable Continue mycophenolate and prednisone. He is also on a monthly infusion, belatacept Sodium level slowly improving, currently at 132 Follow urinalysis, urine electrolytes: Urine sodium, creatinine, osmolarity DC IV fluids Follow-up closely with Nephrology Kidney function stable ? Patient seen and examined at bedside during my morning rounds ? Collaborated with patient's nurse at the bedside in detail and addressed all concerns ? Labs, electrolytes, radiology, investigations and test results reviewed ? Consult/Nursing/Ancilliary notes on the chart reviewed and appreciated ? Spoke with patient/family at the bedside and answered all the questions that they had Repeat labs in a.m. Electrolyte replacement as per protocol. Patient will be monitored very closely on the floor. Further recommendations as per the hospital course. Time Spent With Patient Time with patient: 15 - 25 minutes Subjective Date/time seen: 08/03/23 16:32 Interval history: Patient seen and evaluated bedside. His foot pain is under control. General surgery and Orthopedics are coordinating with him regarding further care. Review of Systems Review of Systems: 14 systems were reviewed with pertinent positives and negatives per HPI. Except as documented in the HPI/progress notes, all other systems were reviewed and are negative. Exam Narrative: General: A well-developed, nontoxic-appearing gentleman sitting up in bed in no acute distress. Weight: 106.9 kg. BMI: 32.0. HEENT: PERRL, EOMI. Sclera anicteric. Ora
[2023-08-03] MEDS: lisinopriL 10 MG TABLET 30 MG PO (20:23)
[2023-08-03] MEDS: TAMSULOSIN HCL 0.4 MG CAPSULE PO (20:24)
[2023-08-03] MEDS: ATORVASTATIN 40 MG TABLET PO (20:24)
[2023-08-04] VITALS (8 sets, daily range): BP systolic 98–127; BP diastolic 53–66; PULSE 74–93; RESP 18–20; TEMP 36.1–36.7; O2SAT 96–100
[2023-08-04] MEDS: metroNIDAZOLE 500 MG/ISO 100ML 500 MG/100 ML BAG 100 MG IVPB ×3 (02:03→17:52)
[2023-08-04 05:20] LABS: Basophils Percent Auto 0.3 % (0.2-1.2); Eosinophils Percent Auto 0.6 % (0-4.4); Hematocrit 34.9 % (42.0-52.0); Hemoglobin 11.1 g/dL (14.0-18.0); Immature Granulocyte Absolute 0.05 K/mm3 (0.00-0.031); Immature Granulocyte Percent A 0.8 % (0-0.5); Lymphocytes Absolute Auto 0.46 K/mm3 (0.9-3.2); Lymphocytes Percent Auto 7.2 % (18.3-44.2); Mean Corpuscular HGB Conc 31.8 g/dl (32-36); Mean Corpuscular Hemoglobin 29.8 pg (26-34); Mean Corpuscular Volume 93.6 fl (80-100); Mean Platelet Volume 8.7 fl (7.4-10.4); Monocytes Absolute Auto 0.5 K/mm3 (0.1-0.6); Monocytes Percent Auto 7.4 % (2.6-8.5); Neutrophils Absolute Auto 5.3 K/mm3 (1.3-6.7); Neutrophils Percent Auto 83.7 % (45.5-73.1); Platelet Count Result 186 k/mm3 (150-375); Red Blood Count 3.73 M/mm3 (4.6-6.20); Red Cell Distribution Width 14.3 % (11.5-14.5); White Blood Count 6.4 K/mm3 (4.5-10.0)
[2023-08-04 05:34] LABS: Alanine Aminotransferase 34 U/L (6-50); Albumin Level 2.5 g/dL (3.5-5.1); Alkaline Phosphatase 81 U/L (38-126); Anion Gap 3 mmol/L (8-16); Aspartate Amino Transferase 51 U/L (17-59); Bilirubin,Total 0.7 mg/dL (0.2-1.3); Blood Urea Nitrogen 11 mg/dL (9-20); Calcium 9.5 mg/dL (8.4-10.2); Carbon Dioxide 22 mmol/L (22-30); Chloride 106 mmol/L (98-107); Estimated CRCL calculation 100 ml/min; Estimated Glomerular Filt Rate > 60; Glucose 92 mg/dL (65-110); Potassium 4.5 mmol/L (3.4-5.0); Sodium 131 mmol/L (137-145)
[2023-08-04] MEDS: ACIDOPHILUS/BULGARICUS CHEWABLE TABLET 2 TABLET PO (09:26)
[2023-08-04] MEDS: carvediloL 25 MG TABLET PO ×2 (09:26→20:29)
[2023-08-04] MEDS: CHOLECALCIFEROL 1,000 UNITS TABLET 2000 UNITS PO (09:26)
[2023-08-04] MEDS: amLODIPine BESYLATE 5 MG TABLET 10 MG PO (09:27)
[2023-08-04] MEDS: ENOXAPARIN 120 MG/0.8 ML SYRINGE 110 MG SUB-Q ×2 (09:27→20:33)
[2023-08-04] MEDS: predniSONE 5 MG TABLET PO (09:27)
[2023-08-04] MEDS: MYCOPHENOLATE SODIUM 360 MG 360 EACH PO ×2 (09:28→17:52)
[2023-08-04] MEDS: CEFEPIME 2 GM/NS 50 ML 2 GM/50 ML BAG IVPB ×2 (09:28→20:22)
[2023-08-04] MEDS: DOXYCYCLINE 100 MG/NS 100 ML 100 MG/100 ML BAG IVPB ×2 (10:14→20:22)
[2023-08-04 11:11] LABS: Alpha 1 Globulin 0.4 g/dL (0.2-0.3); Alpha 2 Globulin 0.7 g/dL (0.5-0.9); Beta 1 Globulin 0.2 g/dL (0.4-0.6); Gamma Globulin 0.7 g/dL (0.8-1.7); Protein, Total 4.2 g/dL (6.1-8.1)
--- NOTE | 2023-08-04 12:43 | PM.PNORT ---
Progress Note: A&P Assessment and Plan (1) Wound of left foot: Code(s): S91.302A - Unspecified open wound, left foot, initial encounter <CARMEN Tabor - Last Filed: 08/04/23 13:09> Status: Acute <CARMEN Tabor - Last Filed: 08/04/23 13:09> Assessment and Plan: Orthopedic consult initially requested for 2nd opinion regarding neuropathic ulcer of the left foot s/p surgical intervention by Dr. Brock. History, exam, radiographs and MRI reviewed with the patient. Operative findings by Dr. Brock reviewed as well. Bilateral LE ABIs ordered by orthopedics on 08/01 due to inability to palpate pedal pulses and nature of wound. Results reveal the left FLOYD is 0.5. The left TBI is 0.25. Arterial Doppler waveforms are monophasic at the ankle. Cultures from the left foot have grown Group B Strep. As previously indicated, the patient has a history of renal cell carcinoma on chronic immunosuppression as well as neuropathy and evidence of PAD based on dopplers. The ability to salvage the left foot may be difficult without revascularization first. Patient may ultimately require left yjaaz-ael-tuwe amputation which he would like to avoid at all costs. Given current state of wound on exam today, the patient would benefit transfer to a tertiary care center. I have contacted [facility] transfer line and spoke with a vascular surgeon, Dr. James, would agrees patient would be better suited with revascularization prior to further surgical intervention from an orthopedic or general surgery standpoint. He has accepted the patient for transfer and the transfer line will notify our facility as soon as the bed is available. Dr. James recommended continued hold of the Xarelto at this time for surgical planning purposes. Continue current antibitotic regimen. General surgery notified of impending transfer. Okay to pull drains prior to transfer and redress wounds/foot. Patient's kidney transplant team has been notified as well. Agree with need for transfer. <CARMEN Tabor - Last Filed: 08/04/23 13:09> (2) Chronic atrial fibrillation: Code(s): I48.20 - Chronic atrial fibrillation, unspecified <CARMEN Tabor - Last Filed: 08/04/23 13:09> Status: Acute <Jenifersa Keira Hathaway CLINICAL CASE MANAGER - Last Filed: 08/04/23 13:09> Assessment and Plan: On xarelto- currently held. Okay to continue hold and use of Lovenox for impending transfer to [facility]. <CARMEN Tabor - Last Filed: 08/04/23 13:09> (3) Immunosuppressed status: Code(s): D84.9 - Immunodeficiency, unspecified <Jenifer Hathaway CLINICAL CASE MANAGER - Last Filed: 08/04/23 13:09> Status: Acute <Jenifersa Keira Hathaway CLINICAL CASE MANAGER - Last Filed: 08/04/23 13:09> Assessment and Plan: History of kidney transplant. On immunosuppressants. <CARMEN Tabor - Last Filed: 08/04/23 13:09> (4) Prediabetes: Code(s): R73.03 - Prediabetes <CARMEN Tabor - Last Filed: 08/04/23 13:09> Status: Acute <Jenifersa Keira Hathaway CLINICAL CASE MANAGER - Last Filed: 08/04/23 13:09> Assessment and Plan: Most recent HgB A1C >6%. Not currently on diabetic regimen. <CARMEN Tabor - Last Filed: 08/04/23 13:09> (5) Peripheral vascular disease: Code(s): I73.9 - Peripheral vascular disease, unspecified <CARMEN Tabor - Last Filed: 08/04/23 13:09> Status: Acute <Jenifersa Keira Hathaway CLINICAL CASE MANAGER - Last Filed: 08/04/23 13:09> Assessment and Plan: ABIs ordered for further evaluation. <CARMEN Tabor - Last Filed: 08/04/23 13:09> (6) Coronary artery disease: Qualifiers: Coronary Disease-Associated Artery/Lesion type: due to calcified coronary lesion Qualified Code(s): I25.10 - Atherosclerotic heart disease of [place] coronary artery without angina pectoris; I25.84 - Coronary atherosclerosis due to calcified coronary lesion <Jenifer Hathaway CLINICAL CASE MANAGER - Last Filed: 08/04/23 13:09> Code(s): I25.10 - Atherosclerotic
--- NOTE | 2023-08-04 13:44 | PM.PNGS ---
Progress Note: A&P Assessment and Plan (1) Wound of left foot: Code(s): S91.302A - Unspecified open wound, left foot, initial encounter Status: Acute Assessment and Plan: Postop day 4 from complex I&D left forefoot abscess with butch drains in place. Cultures from the left foot have grown Group B Strep. ABIs showed left FLOYD 0.5 and left TBI 0.25 with arterial doppler waveforms monophasic at the ankle. Ortho recommending transfer to a tertiary care facility with vascular surgery to evaluate possible need for revascularization prior to further surgical intervention given his peripheral arterial disease. Vascular surgery at [facility] accepted the patient. Will await bed placement. Continue IV antibiotics and local wound care. (2) Immunosuppressed status: Code(s): D84.9 - Immunodeficiency, unspecified Status: Acute (3) History of kidney transplant: Onset Date: 12/2015 Code(s): Z94.0 - Kidney transplant status Status: Acute Assessment and Plan: Recommended transfer to [facility] as this is where he had his kidney transplant. Plans for transfer as mentioned above. (4) Chronic atrial fibrillation: Code(s): I48.20 - Chronic atrial fibrillation, unspecified Status: Acute (5) Peripheral vascular disease: Code(s): I73.9 - Peripheral vascular disease, unspecified Status: Acute Plan I have discussed the patient's case and plan of care with Dr. Brock. Subjective Subjective Date/Time Seen: 08/04/23 09:45 Post Op day: 4 (Complex incision and drainage of left forefoot abscess) Patient reports: no new complaints and afebrile Interval history: Patient with no new complaints. Chart reviewed since last seen. Exam Narrative: Left foot dressing dry and intact Objective Data Vital Signs Vital Signs: Vital Signs - 24 hr 08/03/23 13:56 08/03/23 19:20 08/03/23 20:23 Temperature 97.4 F L 98.2 F Pulse Rate 74 92 92 Respiratory Rate 16 18 Blood Pressure 122/65 134/62 Pulse Oximetry 97 99 Oxygen Delivery 08/03/23 20:55 08/03/23 20:30 08/04/23 03:00 Temperature 96.9 F L 97.1 F L Pulse Rate 94 82 Respiratory Rate 20 20 Blood Pressure 113/52 L 103/57 L Pulse Oximetry 98 96 Oxygen Delivery Room Air 08/04/23 08:05 02/26/24 09:26 08/04/23 09:28 Temperature 97.0 F L Pulse Rate 76 76 81 Respiratory Rate 18 Blood Pressure 109/57 L 127/66 Pulse Oximetry 99 Oxygen Delivery Intake/Output Intake/Output: Intake & Output 08/01/23 08/02/23 08/03/23 08/04/23 23:59 23:59 23:59 23:59 Intake Total 3530 1660 2380 940 Output Total 1825 2420 1825 1350 Balance 1705 -760 555 -410 Meds/Results Medications: Active Medications Generic Name Dose Route Start Last Admin Trade Name Freq PRN Reason Stop Dose Admin Acetaminophen 650 mg 07/30/23 21:21 Acetaminophen 325 Mg Tablet PO Q6H PRN Mild Pain (1-3) or Fever Hydrocodone Bitart/Acetaminophen 1 tab 07/31/23 17:26 07/31/23 22:39 Hydrocodone/Acetaminophen (*Crx) 5-325 Mg Tablet PO 1 tab Q4H PRN Administration Pain Rated 4-6 Amlodipine Besylate 10 mg 07/31/23 09:00 08/04/23 09:27 Amlodipine Besylate 5 Mg Tablet PO 10 mg DAILY ZONIA Administration Atorvastatin Calcium 40 mg 07/30/23 21:00 08/03/23 20:24 Atorvastatin 40 Mg Tablet PO 40 mg QHS ZONIA Administration Carvedilol 25 mg 07/31/23 09:00 08/04/23 09:26 Carvedilol 25 Mg Tablet PO 25 mg Q12HR ZONIA Administration Enoxaparin Sodium 110 mg 08/02/23 21:00 08/04/23 09:27 Enoxaparin 120 Mg/0.8 Ml Syringe SUB-Q 110 mg Q12HR ZONIA Administration Metronidazole 500 mg in 100 mls @ 100 mls/hr 07/31/23 10:00 08/04/23 11:13 Flagyl 500 Mg/Iso Soln 100 Ml IVPB 100 mls/hr Q8H ZONIA Administration Doxycycline Hyclate 100 mg in 100 mls @ 100 mls/hr 07/31/23 14:10 08/04/23 10:14 Vibramycin 100 Mg/Ns 100 Ml IVPB 100 mls/hr Q12HR ZONIA Administration Cefe
[2023-08-04] MEDS: LIDOCAINE HCL 1% PF INJ 5 ML VIAL INFILTRATE (14:45)
--- NOTE | 2023-08-04 16:31 | PM.TDS ---
Transfer Discharge Sum: Prov Provider Date of admission: 07/31/23 11:04 Primary care physician: Joao Roberts MD Admitting clinician: Marixa Nolen MD Attending physician on admission: Marixa Nolen Consults: 07/30/23 Consult to Physician Routine Comment: Consulting Provider: Jim Brock Reason for consultation: Infected foot wound Has provider been notified: Yes 07/30/23 15:13 Wound/ET Consult Routine Reason for Consult:: Foot wound 07/30/23 18:29 Consult Infectious Disease Pharmacist Routine Comment: 07/31/23 Consult to Physician Routine Comment: Spoke with Doctor at 0835 ([facility] [place]ing Provider: Taj Murphy call or contact centre team leader/MD group to consult: On-call elevator serviceman Reason for consultation: Hyponatremia, status post renal transplantation Has provider been notified: Yes 07/31/23 17:26 Consult to Physician Routine Comment: Consulting Provider: Jenifer Hathaway Reason for consultation: Left foot abscess, septic 1st MP joint, possible osteomyelitis Has provider been notified: Yes Attending physician on discharge: Connor Briceño Discharging clinician: Connor Briceño Anticipated date of transfer: 08/04/23 Receiving physician/facility: Dr. James ... Vascular surgeon at [facility], [place], [place]. DS: Admitting Diagnosis Discharge Date 08/04/2023: Admitting Diagnosis (1) Cellulitis of left foot: ?Code(s): L03.116 - Cellulitis of left lower limb ?Status:?Acute (2) Wound of left foot: ?Code(s): S91.302A - Unspecified open wound, left foot, initial encounter ?Status:?Acute (3) Prediabetes: ?Code(s): R73.03 - Prediabetes ?Status:?Acute (4) Hyponatremia: ?Code(s): E87.1 - Hypo-osmolality and hyponatremia ?Status:?Acute (5) Immunosuppressed status: ?Code(s): D84.9 - Immunodeficiency, unspecified ?Status:?Acute (6) Chronic atrial fibrillation: ?Code(s): I48.20 - Chronic atrial fibrillation, unspecified ?Status:?Acute DS: Discharge Diagnosis Discharge Diagnosis (1) History of kidney transplant: Onset Date: 12/2015 Code(s): Z94.0 - Kidney transplant status Status: Acute (2) Chronic atrial fibrillation: Code(s): I48.20 - Chronic atrial fibrillation, unspecified Status: Acute (3) Immunosuppressed status: Code(s): D84.9 - Immunodeficiency, unspecified Status: Acute (4) Obstructive sleep apnea: Code(s): G47.33 - Obstructive sleep apnea (adult) (pediatric) Status: Acute (5) Chronic anticoagulation: Code(s): 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 Status: Acute (6) Cellulitis of left foot: Code(s): L03.116 - Cellulitis of left lower limb Status: Acute (7) Prediabetes: Code(s): R73.03 - Prediabetes Status: Acute (8) Wound of left foot: Code(s): S91.302A - Unspecified open wound, left foot, initial encounter Status: Acute (9) Paroxysmal atrial fibrillation: Code(s): I48.0 - Paroxysmal atrial fibrillation Status: Acute (10) Peripheral vascular disease: Code(s): I73.9 - Peripheral vascular disease, unspecified Status: Acute (11) Coronary artery disease: Code(s): I25.10 - Atherosclerotic heart disease of [place] coronary artery without angina pectoris Status: Acute (12) Cellulitis: Qualifiers: Laterality: left Site of cellulitis: extremity Site of cellulitis of extremity: lower extremity Qualified Code(s): L03.116 - Cellulitis of left lower limb Code(s): L03.90 - Cellulitis, unspecified Status: Acute (13) Hyponatremia: Code(s): E87.1 - Hypo-osmolality and hyponatremia Status: Acute (14) Osteomyelitis of foot: Code(s): M86.9 - Osteomyelitis, unspecified Status: Acute Transfer Discharge Sum: Med Medications Active and Home Medications: Home Medications amlodipine 10 mg tablet 10 mg PO DAILY 0
[2023-08-04] MEDS: TAMSULOSIN HCL 0.4 MG CAPSULE PO (20:29)
[2023-08-04] MEDS: ATORVASTATIN 40 MG TABLET PO (20:29)
[2023-08-04] MEDS: lisinopriL 10 MG TABLET 30 MG PO (20:29)
[2023-08-04] MEDS: CENTRAL LINE FLUSH 10 ML IV PUSH (20:29)
[2023-08-05 12:31] LABS: Creatinine, Random Urine 66 mg/dL (20-320); Total Protein/Creatinine Ratio 121 mg/g creat (25-148)
== END 2023-08-04 23:10 | disposition short-term general hospital (02) | DRG 603 ==
LOC: ANHED 16:18 → ANH2MED 16:42
PROVIDERS: Hospitalist; Internal Medicine Nephrology; Nurse Practitioner Family; Surgery; Admitting Provider General Practice; Emergency Provider Physician Assistant; PCP Family Medicine; Visit Provider Family Medicine
PROC: 0J9R0ZZ Drainage of Left Foot Subcutaneous Tissue and Fascia, Open Approach (ICD-10-PCS; principal; 2023-07-31 15:30)
DX: L02.612 Cutaneous abscess of left foot (principal); L03.116 Cellulitis of left lower limb; E87.1 Hypo-osmolality and hyponatremia; Z94.0 Kidney transplant status; D84.821 Immunodeficiency due to drugs; L97.529 Non-pressure chronic ulcer of other part of left foot with unspecified severity; B95.1 Streptococcus, group B, as the cause of diseases classified elsewhere; I25.10 Atherosclerotic heart disease of native coronary artery without angina pectoris; I10 Essential (primary) hypertension; I73.9 Peripheral vascular disease, unspecified; I48.0 Paroxysmal atrial fibrillation; E78.5 Hyperlipidemia, unspecified; G47.33 Obstructive sleep apnea (adult) (pediatric); R73.03 Prediabetes; Z79.01 Long term (current) use of anticoagulants; Z85.528 Personal history of other malignant neoplasm of kidney; Z95.1 Presence of aortocoronary bypass graft; Z90.5 Acquired absence of kidney; Z87.891 Personal history of nicotine dependence; Z79.69 Long term (current) use of other immunomodulators and immunosuppressants; M65.072 Abscess of tendon sheath, left ankle and foot
CPT/HCPCS: 36415; 36569; 71045; 73630; 73718; 80048; 80053; 81003; 81050; 82533; 82565; 82570; 82948; 83036; 83605; 83735; 83935; 84155; 84156; 84165; 84166; 84300; 84443; 84540; 85025; 85652; 86140; 87040; 87070; 87075; 87205; 87641; 93005; 93922; 96365; 96366; 96368; 99285; A9270; G0378; J0692; J1650; J1836; J1956; J2371; J2704; J3010; J3370; J7030; J7120; J7512

== ENCOUNTER 2023-09-07 13:38 | Inpatient (IN) | payer MEDICARE, SELFPAY ==
[2023-09-07] VITALS (17 sets, daily range): BP systolic 118–134; BP diastolic 58–81; PULSE 90–132; RESP 15–23; TEMP 36.3–37; O2SAT 90–100; BMI 32.5
--- NOTE | 2023-09-07 | ECG_ITS ---
Measurements Intervals Chicken Rate: 97 P: GA: 0 QRS: -1 QRSD: 92 T: 91 QT: 334 QTc: 426 Interpretive Statements ATRIAL FIBRILLATION POOR R-WAVE PROGRESSION NONSPECIFIC T-WAVE ABNORMALITY COMPARED TO ECG 09/07/2023 13:44:06 HEART RATE CONTROL IS IMPROVED Electronically Signed On 09-08-2023 12:51:16 CDT by Manuel Cerda M.D.
--- NOTE | ~2023-09-07 | US_ITS ---
Duplex Sonography of the bilateral lower extremities: Indication: Swelling Sagittal and transverse B-mode images as well as color-flow imaging were performed on the right and l eft femoral and popliteal veins. B-mode examination was done without and with compression in the tra nsverse plane. There is good visualization of the bilateral common femoral, proximal profunda femora l, superficial femoral, greater saphenous, and popliteal veins. Normal flow was seen on color-flow im aging. Normal compressibility was demonstrated. Visualized calf veins are patent. Impression: No evidence of deep vein thrombosis involving either lower extremity. Reviewed, dictated and finalized at location . Impression: No evidence of deep vein thrombosis involving either lower extremit y.
--- NOTE | ~2023-09-07 | XR_ITS ---
EXAMINATION: XR chest 2V DATE: 09/07/2023 14:10 INDICATION: Syncope. TECHNIQUE: Frontal and lateral views of the chest were obtained. COMPARISON: Chest single view 08/04/2023 FINDINGS: A calcified right lung nodule is consistent with old granulomatous disease. There is mild a telectasis in the lower lung zones. No pleural effusion or pneumothorax. The heart size is normal. Me veronica sternotomy wires and mediastinal surgical clips are seen, likely from prior coronary artery bypa ss grafting. A right internal jugular central venous catheter is seen with tip in the superior vena c barry. IMPRESSION: 1. Mild atelectasis in the lower lung zones. Reviewed, dictated and finalized at location E.
--- NOTE | ~2023-09-07 | NM_ITS ---
EXAMINATION: NM lung vent and perfusion DATE: 09/08/2023 13:49 INDICATION: Syncope. TECHNIQUE: 25.0 mCi xenon-133 was given for ventilation images. 5.5 mCi Tc-99m MAA was administered i ntravenously for perfusion images. Scintigraphic images of the chest were obtained. COMPARISON: Chest 2 views 09/07/2023 FINDINGS: Ventilation images demonstrate small defects on the single breath image and diffuse retention on wash out images. Perfusion images show matched small and moderate size defects in the lower lobes. IMPRESSION: 1. Intermediate probably for pulmonary embolism. Reviewed, dictated and finalized at location A.
--- NOTE | ~2023-09-07 | MR_ITS ---
MRI of the brain Clinical History: Loss of consciousness Technique: Axial and sagittal T1-weighted images were acquired. These were followed by axial T2-weigh lizz, diffusion weighted, gradient, and FLAIR images. Findings: There is no acute infarct, internal hemorrhage or mass lesion. There are extensive chronic white matter changes throughout the periventricular white matter bilaterally. Ventricles and some spaces are mildly dilated. Orbits are unremarkable. Paranasal sinuses are clear. There is minimal fluid in bilateral mastoid air cells. Major intracranial flow voids appear intact. Sagittal midline structures are intact. IMPRESSION: No acute abnormality seen. Severe chronic microvascular ischemic change. Mild generalized atrophy. Reviewed, dictated and finalized at location .
--- NOTE | 2023-09-07 13:42 | ECG_ITS ---
Measurements Intervals [place] Rate: 125 P: NM: 0 QRS: 9 QRSD: 85 T: 105 QT: 286 QTc: 412 Interpretive Statements ATRIAL FIBRILLATION WITH RAPID VENTRICULAR RESPONSE CONSIDER INFERIOR INFARCT, AGE INDETERMINATE DELAYED PRECORDIAL R/S TRANSITION BORDERLINE ST-T WAVE ABNORMALITY- HIGH LATERAL LEADS BASELINE WANDER- I, II, AVF ABNORMAL ECG COMPARED TO ECG 07/31/2023 12:14:28 HEART RATE HAS INCREASED Electronically Signed On 09-07-2023 19:51:26 CDT by Addy Mckenna D.O.
--- NOTE | 2023-09-07 13:47 | ED.SYNCOPE ---
HPI - Syncope General Chief Complaint: Syncope Stated Complaint: syncope History of Present Illness HPI narrative: Patient is a 68 year old male with history of CAD s/p CABG in 2016, RCC s/p nephrectomy, subsequent renal failure requiring HD, s/p renal transplant in 2016, HTN, prediabetes, a.fib on xarelto currently on PICC line antibiotics for left foot osteo s/p recent toe amputation here after a syncopal episode. Patient notes that today he was at his son's toes and had a visit from [facility] where they performed a dressing change on his PICC line. He notes that he started feeling lightheaded and then had a syncopal episode while his dressing is being changed. He was reportedly unconscious for 1-2 minutes, this was witnessed, he did not fall to the ground. On EMS arrival he was hypoxic in the 80s, his saturation improved on transport into the hospital and is currently not requiring any oxygen. They state that his heart rate was between 90 and 140 in route, appeared to be in AFib. Patient did not eat anything yet today. He denies chest pain or shortness of breath. He notes he feels normal now and has been healing great and feelin well since his hospital discharge. 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 Per son who was with the patient, he notes that patient was getting his dressing changed and his body went limp, his face tensed up and he urinated on himself. He notes that he was drooling and regained consciousness within about 3-5 minutes. No seizure like activity noted, no history of seizures or syncope. Related Data Home Medications Medication Instructions Recorded Confirmed atorvastatin 40 mg tablet (Lipitor) 40 mg PO DAILY 07/30/23 08/25/23 belatacept 250 mg intravenous 550 mg IV MONTHLY 07/30/23 08/25/23 solution cholecalciferol (vitamin D3) 50 50 mcg PO DAILY 07/30/23 08/25/23 mcg (2,000 unit) tablet (Vitamin D3) prednisone 5 mg tablet 5 mg PO DAILY 07/30/23 08/25/23 rivaroxaban 20 mg tablet (Xarelto) 20 mg PO QPM 07/30/23 08/25/23 sennosides 8.6 mg tablet (Senokot) 8.6 mg PO BID PRN Constipation 07/30/23 08/25/23 tamsulosin 0.4 mg capsule 0.4 mg PO QHS 07/30/23 08/25/23 acetaminophen 500 mg tablet 1,000 mg PO Q6H PRN Pain 08/25/23 08/25/23 aspirin 325 mg tablet 325 mg PO DAILY 08/25/23 08/25/23 metoprolol tartrate 25 mg tablet 6.25 mg PO BID 08/25/23 08/25/23 metronidazole 500 mg tablet 500 mg PO Q12H 08/25/23 08/25/23 oxycodone 5 mg capsule 5 mg PO Q6H PRN Pain 08/25/23 08/25/23 sennosides 8.6 mg-docusate sodium 1 tablet PO BID PRN Constipation 08/25/23 08/25/23 50 mg tablet (Stimulant Laxative Plus) Allergies Allergy/AdvReac Type Severity Reaction Status Date / Time Penicillins Allergy Severe Swelling Verified 07/31/23 06:44 Iodinated Contrast Media Allergy Unknown Unverified 09/04/23 09:55 metrizamide Allergy Hives Verified 08/25/23 14:05 contrast dye Allergy Rash Uncoded 07/31/23 06:44 Review of Systems Review of Systems: All systems reviewed & are unremarkable except as noted in HPI and below PMFSH Past Medical History Medical History (Updated 09/07/23 @ 18:31 by Shonda Galaviz MD) Chronic anticoagulation Chronic atrial fibrillation Coronary artery disease Status post 3 vessel bypass. Hypertension Immunosuppressed status On anti-rejection medications post renal transplant. Obstructive sleep apnea Prediabetes Hemoglobin A1c was 6.3% in 07/2023. Renal cell carcinoma Surgical History Surgical History (Updated 08/27/23 @ 21:40 by Shahram Barrios DO) History of Achilles tendon repair History of cardiac catheterization History of coronary artery bypass graft (09/2015) History of kidney transplant (12/2015) History of right nephrectomy (2011) For renal cell carcinoma. Family History Family History Father Hypertension Diabetes mellitus Heart attack Mother Breast cancer Social History
[2023-09-07 13:59] LABS: Basophils Percent Auto 0.3 % (0.2-1.2); Eosinophils Percent Auto 0.3 % (0-4.4); Hematocrit 40.8 % (42.0-52.0); Hemoglobin 12.6 g/dL (14.0-18.0); Immature Granulocyte Absolute 0.02 K/mm3 (0.00-0.031); Immature Granulocyte Percent A 0.5 % (0-0.5); Lymphocytes Percent Auto 8.2 % (18.3-44.2); Mean Corpuscular HGB Conc 30.9 g/dl (32-36); Mean Corpuscular Hemoglobin 31.1 pg (26-34); Mean Corpuscular Volume 100.7 fl (80-100); Mean Platelet Volume 8.8 fl (7.4-10.4); Monocytes Absolute Auto 0.2 K/mm3 (0.1-0.6); Monocytes Percent Auto 4.9 % (2.6-8.5); Neutrophils Absolute Auto 3.1 K/mm3 (1.3-6.7); Neutrophils Percent Auto 85.8 % (45.5-73.1); Platelet Count Result 160 k/mm3 (150-375); Red Blood Count 4.05 M/mm3 (4.6-6.20); White Blood Count 3.7 K/mm3 (4.5-10.0)
[2023-09-07 14:18] LABS: Alanine Aminotransferase 32 U/L (6-50); Albumin Level 2.8 g/dL (3.5-5.1); Alkaline Phosphatase 97 U/L (38-126); Anion Gap 5 mmol/L (4-12); Aspartate Amino Transferase 75 U/L (17-59); Bilirubin,Total 1.2 mg/dL (0.2-1.3); Blood Urea Nitrogen 11 mg/dL (9-20); Calcium 9.2 mg/dL (8.4-10.2); Carbon Dioxide 24 mmol/L (22-30); Chloride 104 mmol/L (98-107); Estimated CRCL calculation 114 ml/min; Estimated Glomerular Filt Rate > 60; Glucose 121 mg/dL (65-110); Potassium 3.6 mmol/L (3.4-5.0); Sodium 133 mmol/L (137-145)
[2023-09-07 14:29] LABS: Troponin I 0.027 ng/mL (0.000-0.034)
[2023-09-07] MEDS: SODIUM CHLORIDE 0.9% IV 500 ML 999 ML IV CONT (14:48)
[2023-09-07] MEDS: METOPROLOL TARTRATE INJ 5 MG/5 ML VIAL IV PUSH (15:44)
[2023-09-07 16:27] LABS: Magnesium 1.7 mg/dL (1.6-2.3)
[2023-09-07 17:38] LABS: Troponin I 0.149 ng/mL (0.000-0.034)
--- NOTE | 2023-09-07 18:08 | ECG_ITS ---
Measurements Intervals [place] Rate: 84 P: 60 TN: 181 QRS: -59 QRSD: 106 T: 70 QT: 380 QTc: 451 Interpretive Statements SINUS RHYTHM FREQUENT VENTRICULAR PREMATURE COMPLEXES LEFT AXIS DEVIATION LEFT ATRIAL ENLARGEMENT INCOMPLETE RIGHT BUNDLE BRANCH BLOCK INFERIOR INFARCT, AGE INDETERMINATE CONSIDER ANTERIOR INFARCT, AGE INDETERMINATE BORDERLINE ST-T WAVE ABNORMALITY- HIGH LATERAL LEADS ABNORMAL ECG COMPARED TO ECG 09/07/2023 13:44:06 SINUS RHYTHM NOW PRESENT INCOMPLETE RIGHT BUNDLE-BRANCH BLOCK NOW PRESENT Electronically Signed On 09-07-2023 20:02:49 CDT by Addy Mckenna D.O.
[2023-09-07] MEDS: ASPIRIN 81 MG CHEWABLE TABLET 324 MG PO (18:19)
--- NOTE | 2023-09-07 19:13 | PM.IMHP ---
H&P: HPI History of Present Illness Date/Time: 09/07/23 19:30 Chief Complaint: Syncope. Narrative: This is a 68-year-old male with coronary artery disease, hypertension, hyperlipidemia, atrial fibrillation on chronic anticoagulation, renal cell carcinoma status post nephrectomy, end-stage renal disease status post renal transplant in 2016 on immunosuppressants, prediabetes, and obstructive sleep apnea presented to the emergency department via EMS from home for evaluation of a syncopal episode. The patient provides the following history. His son provides additional information, with the patient's permission. He was recently hospitalized at [place] with osteomyelitis of the left foot status post amputation for which he is on long-term antibiotics. Son administered antibiotics today and later this afternoon a home health nurse came to change the dressing on his PICC line. While she was changing the dressing he suddenly started to feel warm, short of breath, and lightheaded. According to the son, he then went unconscious and slumped over in his chair and he was unresponsive for upwards of 2 minutes. His jaw was clenched and he seemed to be breathing heavy. There were no reports of seizure activity but he was incontinent of urine. He has no complaints at this time and denies feelings of lightheadedness, headache, neck ache, cold and flu symptoms, chest and pleuritic pain, palpitations, current shortness of breath, abdominal pain, nausea, vomiting, diarrhea, dysuria, and calf pain. EMS was summoned and on their arrival his SpO2 was in 80s initially but normalized before he was even started on oxygen. He was in atrial fibrillation with rates between the 90s and the 140s. No wheezing, rash, hives, or angioedema was noted. In the ED: He was afebrile on arrival with stable blood pressures. Labs were significant for a WBC count of 3.7, hemoglobin 12.6, platelet 160, sodium 133, creatinine 0.70, AST 75, troponin 0.027 --> 0.149. Chest x-ray showed mild atelectasis in the lower lung zones. Initial EKG showed rapid atrial fibrillation for which he was given 5 mg IV metoprolol. Repeat EKG demonstrated a sinus rhythm with incomplete right bundle-branch block with ectopy. He is being admitted in this setting for closer monitoring and further workup. Review of Systems Review of Systems: Twelve systems were reviewed and are negative except for as per HPI. PMFSH Past Medical History Medical History (Updated 09/07/23 @ 23:09 by Su Berg PA-C) Chronic anticoagulation Chronic atrial fibrillation Coronary artery disease Status post 3 vessel bypass. Hypertension Immunosuppressed status On anti-rejection medications post renal transplant. Obstructive sleep apnea Osteomyelitis of left foot Peripheral arterial disease Prediabetes Hemoglobin A1c was 6.3% in 07/2023. Renal cell carcinoma Surgical History Surgical History (Updated 09/07/23 @ 23:09 by Su Berg PA-C) History of Achilles tendon repair History of cardiac catheterization History of coronary artery bypass graft (09/2015) History of kidney transplant (12/2015) History of right nephrectomy (2011) For renal cell carcinoma. History of transmetatarsal amputation of left foot Family History Family History Father Hypertension Diabetes mellitus Heart attack Mother Breast cancer Social History Social History Social History: Surrogate medical decision maker: Vern Wooten, son. Code status: Full code. Smoking packs per day: 1 Smoking cigarettes per day: 20.0 Years smoked: 40 Smoking pack-years: 40.00 Smoking status: Former smoker Tobacco type: cigarettes Second hand tobacco smoke exposure: No Smoking end date: 08/07/21 Alcohol intake: current Drinks per week: 1 Substance use: former Substance use type: marijuana Do You Feel Saf
--- NOTE | 2023-09-07 19:21 | PC.NURSE ---
This RN assumed care of pt @2106
--- NOTE | 2023-09-07 21:09 | ADMGEN ---
This patient, Manuel Wooten, was admitted to IMU Room 206-01 on 09/07/23 at 2053. Patient/family oriented to hospital policies and general routines including ID bracelet, bed and alarms, visiting hours, pain management, procedures, bathroom and other care routines, personal items, smoking policy, room service/diet, and visiting hours. Information on how to activate the Rapid Response Team has been discussed. Patient/Family are encouraged to report perceived risks to care and to ask questions if they do not understand what they are told or what they should do.
[2023-09-07 23:29] LABS: Troponin I 0.131 ng/mL (0.000-0.034)
[2023-09-08] VITALS (17 sets, daily range): BP systolic 79–127; BP diastolic 49–80; PULSE 67–114; RESP 16–20; TEMP 36.2–36.4; O2SAT 90–98
[2023-09-08 01:38] LABS: MRSA (PCR) NOT DETECTED (NOT DETECTE)
[2023-09-08] MEDS: carvediloL 25 MG TABLET PO ×3 (02:27→18:03)
[2023-09-08] MEDS: RIVAROXABAN 20 MG TABLET PO ×2 (02:28→18:04)
[2023-09-08] MEDS: predniSONE 5 MG TABLET PO ×2 (02:28→09:00)
[2023-09-08] MEDS: CHOLECALCIFEROL 1,000 UNITS TABLET 2000 UNITS PO ×2 (02:28→09:00)
[2023-09-08] MEDS: ATORVASTATIN 40 MG TABLET PO ×2 (02:28→20:26)
[2023-09-08 04:45] LABS: Hemoglobin 12.6 g/dL (14.0-18.0); Mean Corpuscular HGB Conc 30.7 g/dl (32-36); Mean Corpuscular Hemoglobin 31.1 pg (26-34); Mean Corpuscular Volume 101.2 fl (80-100); Mean Platelet Volume 9.5 fl (7.4-10.4); Platelet Count Result 168 k/mm3 (150-375); Red Blood Count 4.05 M/mm3 (4.6-6.20); Red Cell Distribution Width 18.4 % (11.5-14.5); White Blood Count 4.5 K/mm3 (4.5-10.0)
[2023-09-08 05:07] LABS: Anion Gap 5 mmol/L (4-12); Blood Urea Nitrogen 11 mg/dL (9-20); Calcium 9.1 mg/dL (8.4-10.2); Carbon Dioxide 24 mmol/L (22-30); Chloride 105 mmol/L (98-107); Estimated CRCL calculation 98 ml/min; Estimated Glomerular Filt Rate > 60; Glucose 77 mg/dL (65-110); Magnesium 1.8 mg/dL (1.6-2.3); Potassium 3.5 mmol/L (3.4-5.0); Sodium 134 mmol/L (137-145)
--- NOTE | 2023-09-08 06:00 | ECHO_ITS ---
Patient Info Name: Manuel Wooten Age: 68 years : 1955 Gender: Male Ht: 72 in Wt: 240 lbs BSA: 2.38 m2 HR: 86 bpm BP: 112 / 67 mmHg Heart Rhythm: Atrial Fibrillation Technical Quality: Fair Exam Date: 09/08/2023 7:49 AM Exam Location: Echo Lab Patient Status: Inpatient Admit Date: 09/07/2023 Staff Ordering Physician: Shonda Galaviz MD Economic Developer: Anne Salazar RDCS Attending Provider: Feli Boone MD Exam Type: CA echo doppler color flow Study Info Indications - elevated troponin R55 - Syncope and collapse Complete two-dimensional, color flow and Doppler transthoracic echocardiogram is performed. Summary 1. Complete two-dimensional, color flow and Doppler transthoracic echocardiogram is performed. 2. Left ventricular chamber dimension is normal. 3. Left ventricular systolic function is normal, estimated at 60-65%. 4. There is moderately increased left ventricular wall thickness. 5. The left ventricular diastolic function is indeterminate. 6. Right atrial chamber dimension is moderately enlarged. 7. Left atrial chamber dimension is moderately enlarged. 8. There is no aortic valve stenosis. 9. There is mild mitral valve regurgitation. 10. There is mild tricuspid valve regurgitation. 11. Mild pulmonary hypertension, estimated pulmonary arterial systolic pressure is 36 mmHg. Left Ventricle Left ventricular chamber dimension is normal. Left ventricular systolic function is normal, estimated at 60-65%. There is moderately increased left ventricular wall thickness. The left ventricular diastolic function is indeterminate. Right Ventricle Right ventricular chamber dimension is normal. Right ventricular systolic function is normal. Left Atria Left atrial chamber dimension is moderately enlarged. Right Atria Right atrial chamber dimension is moderately enlarged. Aortic Valve The aortic valve is not well visualized. There is no aortic valve stenosis. There is no aortic valve regurgitation. Pulmonic Valve The pulmonic valve is not well visualized. Mitral Valve The mitral valve has thickened leaflets. There is mild mitral valve regurgitation. The mitral valve annulus is mildly calcified. Tricuspid Valve The tricuspid valve leaflets are normal. There is mild tricuspid valve regurgitation. Mild pulmonary hypertension, estimated pulmonary arterial systolic pressure is 36 mmHg. Pericardium/Pleural The pericardium appears normal. There is no pericardial effusion. Inferior Vena Cava Normal inferior vena cava with >50% collapse upon inspiration consistent with normal right atrial pressure, 5 mmHg. Aorta The prox ascending aorta size is normal. There is mild aortic atherosclerosis. Left Ventricular Outflow Tract Name Value Normal LVOT 2D LVOT Diameter 2.0 cm LVOT Doppler LVOT Peak Gradient 3 mmHg LVOT Mean Gradient 1 mmHg LVOT VTI 12 cm LVOT VTI/AV VTI Ratio 0.6 LVOT Stroke Volume 38 ml LVOT CO 2.7 l/min LVOT CI 1.1 l/min/m2 Pulmonic Valve
[2023-09-08] MEDS: FUROSEMIDE INJ 40 MG/4 ML VIAL 20 MG IV PUSH (08:59)
--- NOTE | 2023-09-08 10:24 | PM.IMPN ---
Progress Note: A&P Assessment and Plan (1) Syncope: Code(s): R55 - Syncope and collapse Status: Acute Assessment and Plan: Etiology unclear. Doubt this is orthostatic HoTN since he was at rest. He was orthostatic here with SBP 121 -> 79. Consider vasovagal related to recent dresing changes but patient did not seem bothered by this and RN was just finishing when symptoms occurred. Consider seizure or malignant rhythm given the acute onset and seizure like activity. BP stable on admission but soft overnight. Neuro consult. Consider EEG and MRI but defer to neuro (2) Elevated troponin: Code(s): R79.89 - Other specified abnormal findings of blood chemistry Status: Acute Assessment and Plan: Troponin climbed to 0.15. EKG showed AFib with RVR and borderline ST-T wave changes in the high lateral leads but overall no change from prior except for the heart rate has increased. Elevated troponins could be related to AFib/RVR. Consider malignant arrhythmia. Consider PE. Consider cardiac ischemia although no complaints of chest pain an EKG showing no acute changes. Cardiology consulted. Echocardiogram ordered. (3) Lower extremity edema: Code(s): R60.0 - Localized edema Status: Acute Assessment and Plan: Patient with asymmetric right greater than left pedal edema. He is currently on Lasix but concerned that he is intravascularly depleted. Lower extremity venous Dopplers and V/Q scan have been ordered. Will hold Lasix for now. Add Gonzalo hose if Dopplers are negative given his orthostatic hypotension (4) Osteomyelitis of left foot: Code(s): M86.9 - Osteomyelitis, unspecified Status: Acute Assessment and Plan: Status post resection of the 1st great toe. PICC line in place for IV abx Resume IV antibiotics. (5) Immunosuppressed status: Code(s): D84.9 - Immunodeficiency, unspecified Status: Acute Assessment and Plan: Patient is s/p kidney transplant. Continue anti-rejection medications. (6) Peripheral arterial disease: Code(s): I73.9 - Peripheral vascular disease, unspecified Status: Acute Assessment and Plan: Patient had left LE PAD and underwent left SFA angioplasty which was complicated by developing a large hematoma to the groin. He tolerated the procedure well. Continue Xarelto (7) Chronic atrial fibrillation: Code(s): I48.20 - Chronic atrial fibrillation, unspecified Status: Acute Assessment and Plan: Heart rate elevated at times and appears to be in/out AFib Follows with Cardiology with Dr Andre Monitor on tele for dysrhythmias Continue Xarelto Continue Coreg - consider changing to Toprol if BP becomes more of an issue (8) Hypertension: Code(s): I10 - Essential (primary) hypertension Status: Acute Assessment and Plan: Patient's blood pressure was reviewed on 09/07 Blood pressure remains well controlled. He was orthostatic overnight. Coreg continued but lisinopril and amlodipine on hold Curerntly on IV Lasix but will stop since probably intravascular depleted. Repeat orthostatic Plan DVT prophylaxis - Xarelto Code status - full Subjective Date/time seen: 09/08/23 10:24 Interval history: 68yo male with ESRD s/p kidney transplant, CAD s/p CABG, DM, HTN and AFib on anticoagulation here for syncopal episode. Patient was hospitalized at [place] last month for osteomyelitis on IV abx and then to a rehab facility. He has prashant home (staying at his sons house) since 09/05. While sitting and having his PICC line dressing changed around 11am, he began to hyperventilate. That is the last thing he remembers. By report, patient had clenched jaw and urine incontinence. No history of seizures or strokes. He had not eaten that morning. He had not taken any of his home medications. There is no stranger order prior to the event. He feels well today. No complaints
--- NOTE | 2023-09-08 10:46 | WPDNEURCNPN ---
Assessment and Plan Assessment and plan (1) Syncope: Code(s): R55 - Syncope and collapse Status: Acute (2) A-fib: Qualifiers: Atrial fibrillation type: unspecified Qualified Code(s): I48.91 - Unspecified atrial fibrillation Code(s): I48.91 - Unspecified atrial fibrillation Status: Acute (3) S/P transmetatarsal amputation of foot: Code(s): Z89.439 - Acquired absence of unspecified foot Status: Acute (4) Hypertension: Code(s): I10 - Essential (primary) hypertension Status: Acute (5) Coronary artery disease with angina pectoris: Code(s): I25.119 - Atherosclerotic heart disease of [place] coronary artery with unspecified angina pectoris Status: Acute (6) History of kidney transplant: Onset Date: 12/2015 Code(s): Z94.0 - Kidney transplant status Status: Chronic (7) Chronic atrial fibrillation: Code(s): I48.20 - Chronic atrial fibrillation, unspecified Status: Acute (8) Obstructive sleep apnea: Code(s): G47.33 - Obstructive sleep apnea (adult) (pediatric) Status: Acute (9) Prediabetes: Code(s): R73.03 - Prediabetes Status: Acute (10) Coronary artery disease: Qualifiers: Coronary Disease-Associated Artery/Lesion type: due to calcified coronary lesion Qualified Code(s): I25.10 - Atherosclerotic heart disease of [place] coronary artery without angina pectoris; I25.84 - Coronary atherosclerosis due to calcified coronary lesion Code(s): I25.10 - Atherosclerotic heart disease of [place] coronary artery without angina pectoris Status: Acute Plan Hyperventilation can induce vasovagal attack. However he was incontinent of urine and he had some clenching of the jaw. Overall findings are not clearly suggestive of either seizure or defer syncope in his however suggest MRI of the brain, carotid Doppler study and EEG to investigate him further. Thank you very much for allowing to participate in the care of this patient. Consult date: 09/08/23 Time Seen: 10:47 Reason for consult: The patient is 68-year-old ambidextrous white male with history of coronary artery bypass grafting, nephrectomy, chronic kidney disease, previously on hemodialysis, liver transplantation 2015, atrial fibrillation, on Xarelto, previous history of smoking, history of borderline diabetes with hemoglobin A1c of 6.3 and recent surgery on the left foot for which he has been under treatment. He has a central line for IV antibiotics. While the dressing was being changed yesterday he passed out. For some reason he started to have hypoventilation as he puts it out himself. Thereafter his son noted that he had unresponsiveness he was clenching his teeth. He also was incontinent of urine. He did not have any jerking of the body or any tongue biting. He has not had any spells such as this in the past. He has been evaluated in the emergency room and also in the hospital. There has not been any evidence for postural hypertension. Patient does not think he had any anxiety nor does he feel short of breath when he lies down. He denies any chest pain or palpitation. He denies any headache. Currently he does not feel had any new symptoms. HPI: Manuel Wooten is a 68 year old male Review of Systems Review of Systems: All systems reviewed & are unremarkable except as noted in HPI and below PMFSH Past Medical History Medical History (Updated 09/07/23 @ 23:09 by Su Berg PA-C) Chronic anticoagulation Chronic atrial fibrillation Coronary artery disease Status post 3 vessel bypass. Hypertension Immunosuppressed status On anti-rejection medications post renal transplant. Obstructive sleep apnea Osteomyelitis of left foot Peripheral arterial disease Prediabetes Hemoglobin A1c was 6.3% in 07/2023. Renal cell carcinoma Surgical History Surgical History (Updated 09/08/23 @ 02:22 by Yolanda Vila
[2023-09-08 11:13] LABS: Cholesterol 54 mg/dL (0-200); Folic Acid 2.9 ng/mL (2.76->20); HDL Direct 14 mg/dL; Triglycerides 85 mg/dL (<150)
[2023-09-08 11:23] LABS: LDL Cholesterol Direct 38 mg/dL
--- NOTE | 2023-09-08 11:35 | PM.CNCAR ---
Assessment and Plan Assessment and plan (1) Syncope and collapse: Code(s): R55 - Syncope and collapse Status: Acute Assessment and Plan: Most likely vasovagal etiology complicated by intravascular volume depletion, documented orthostasis in setting of atrial fibrillation with RVR. No evidence for bradyarrhythmia or pause thus far explanation. Patient is document orthostasis. IV fluids administered urine is now less dark which also corroborates prior intravascular volume depletion. Continue to monitor orthostatic vital signs. Appreciate Neurology involvement recommendations. MRI of the brain, carotid Doppler and EEG planned to exclude seizure disorder given incontinence of urine. Unclear if there was a reflex response during dressing change of his PICC line located in the right neck which may have contributed yet no documentation of a bradyarrhythmia thus far. As such, recommend 14 day cook fruit discharge for further corroboration. Discussed pros and cons in this regard. Patient and his son both verbalized understanding and wished to proceed with cook fruit for further evaluation. -May continue carvedilol 25 mg twice daily. -Amlodipine 10 mg daily, and lisinopril 30 mg daily have been held as well as furosemide to date. -2D echocardiogram pending. Further recommended follow after review as appropriate. (2) Elevated troponin: Code(s): R79.89 - Other specified abnormal findings of blood chemistry Status: Acute Assessment and Plan: Mild troponin elevation without anginal symptoms most likely secondary to AFib with RVR, hypotension resulting in demand ischemia/type 2 infarction not secondary to acute coronary syndrome and/or plaque rupture. (3) Chronic atrial fibrillation: Code(s): I48.20 - Chronic atrial fibrillation, unspecified Status: Acute Assessment and Plan: Continue carvedilol 25 mg twice daily for heart rate control and Xarelto 20 mg at bedtime for embolic stroke risk reduction. Monitor for bleeding. H&H stable. (4) Coronary artery disease with angina pectoris: Code(s): I25.119 - Atherosclerotic heart disease of [place] coronary artery with unspecified angina pectoris Status: Acute Assessment and Plan: Stable, no anginal symptoms. If able to tolerate aspirin 81 mg daily be advised in addition to atorvastatin 40 mg at bedtime, carvedilol 25 mg twice daily. (5) Peripheral arterial disease: Code(s): I73.9 - Peripheral vascular disease, unspecified Status: Acute Assessment and Plan: Stable, continue wound care management. Continue atorvastatin 40 mg at bedtime, systemic anticoagulation with Xarelto and aggressive risk factor modification. (6) Chronic anticoagulation: Code(s): Z79.01 - staging technician (current) use of anticoagulants Status: Acute Assessment and Plan: Continue Xarelto 20 mg daily for embolic stroke risk reduction. History of Present Illness History of Present Illness Consult date/time: Date of service: 09/08/23 11:35 Requesting physician: Su Berg PA-C Consult reason: atrial fibrillation and Other (Syncope, elevated troponin) Reason For Visit: Syncope,Elevated Troponin Narrative: Patient is a very pleasant 68-year-old male with a past medical history significant for CAD status post CABG 2016, paroxysmal atrial fibrillation status post renal transplant, LISSY, osteomyelitis of left foot with peripheral arterial disease chronic anticoagulation presents emergency department via EMS from home after suffering a syncopal episode. Patient recently had left foot amputation at [place] on long-term antibiotics afternoon presentation home health nurse was present change the dressing on his PICC line. While this dressing was being changed she suddenly fell warm, short of breath, lightheaded and then slumped over losing consciousness persistent for approximately 2 minutes. As reported by his son wh
[2023-09-08 12:07] LABS: Vitamin D 25 Hydroxy 44.3 ng/mL
[2023-09-08 12:21] LABS: T4 Thyroxine 9.74 ug/dL (5.53-11.0)
[2023-09-08] MEDS: cefTRIAXone 2 GM/NS 100 ML 2 GM/100 ML BAG IVPB (13:59)
--- NOTE | 2023-09-08 15:52 | PHAR ---
Pharmacy verified home med: * Home Med * Mycophenolate Sodium 360 mg tab (DR/EC) take 1 tablet by mouth twice daily
[2023-09-08] MEDS: TAMSULOSIN HCL 0.4 MG CAPSULE PO (20:25)
[2023-09-08] MEDS: MYCOPHENOLATE SODIUM 360 MG 360 EACH PO (20:34)
[2023-09-08] MEDS: CENTRAL LINE FLUSH 10 ML IV PUSH (22:45)
[2023-09-09] VITALS (15 sets, daily range): BP systolic 91–132; BP diastolic 50–88; PULSE 66–90; RESP 16–24; TEMP 36.2–37.2; O2SAT 92–100
[2023-09-09 05:01] LABS: Basophils Percent Auto 0.5 % (0.2-1.2); Hematocrit 38.1 % (42.0-52.0); Hemoglobin 11.8 g/dL (14.0-18.0); Immature Granulocyte Absolute 0.02 K/mm3 (0.00-0.031); Immature Granulocyte Percent A 0.5 % (0-0.5); Lymphocytes Absolute Auto 0.33 K/mm3 (0.9-3.2); Lymphocytes Percent Auto 8.6 % (18.3-44.2); Mean Corpuscular Hemoglobin 31.1 pg (26-34); Mean Corpuscular Volume 100.5 fl (80-100); Mean Platelet Volume 9.3 fl (7.4-10.4); Monocytes Absolute Auto 0.3 K/mm3 (0.1-0.6); Neutrophils Absolute Auto 3.2 K/mm3 (1.3-6.7); Neutrophils Percent Auto 82.4 % (45.5-73.1); Platelet Count Result 168 k/mm3 (150-375); Red Blood Count 3.79 M/mm3 (4.6-6.20); Red Cell Distribution Width 18.4 % (11.5-14.5); White Blood Count 3.8 K/mm3 (4.5-10.0)
[2023-09-09 05:15] LABS: Albumin Level 2.3 g/dL (3.5-5.1); Anion Gap 0 mmol/L (4-12); Blood Urea Nitrogen 13 mg/dL (9-20); Calcium 8.9 mg/dL (8.4-10.2); Carbon Dioxide 26 mmol/L (22-30); Chloride 107 mmol/L (98-107); Estimated CRCL calculation 113 ml/min; Estimated Glomerular Filt Rate > 60; Glucose 96 mg/dL (65-110); Magnesium 1.8 mg/dL (1.6-2.3); Phosphorus 2.8 mg/dL (2.5-4.5); Potassium 3.5 mmol/L (3.4-5.0); Sodium 133 mmol/L (137-145)
[2023-09-09] MEDS: CENTRAL LINE FLUSH 10 ML IV PUSH ×3 (06:06→21:02)
[2023-09-09] MEDS: cefTRIAXone 2 GM/NS 100 ML 2 GM/100 ML BAG IVPB (09:32)
[2023-09-09] MEDS: carvediloL 25 MG TABLET PO ×2 (09:33→17:24)
[2023-09-09] MEDS: MYCOPHENOLATE SODIUM 360 MG 360 EACH PO ×2 (09:33→20:25)
[2023-09-09] MEDS: predniSONE 5 MG TABLET PO (09:33)
[2023-09-09] MEDS: CHOLECALCIFEROL 1,000 UNITS TABLET 2000 UNITS PO (09:36)
--- NOTE | 2023-09-09 10:39 | PM.PNCARD ---
Progress Note: A&P Assessment and Plan (1) Syncope and collapse: Code(s): R55 - Syncope and collapse Status: Acute Assessment and Plan: Most likely vasovagal etiology complicated by intravascular volume depletion, documented orthostasis in setting of atrial fibrillation with RVR.? No evidence for bradyarrhythmia or pauses.? Patient has documented orthostasis.? IV fluids administered, urine is now less dark which also corroborates to prior intravascular volume depletion.? Continue to monitor orthostatic vital signs. Appreciate Neurology involvement recommendations.? MRI of the brain negative for acute findings. Carotid Doppler and EEG planned to exclude seizure disorder given incontinence of urine.? Unclear if there was a reflex response during dressing change of his PICC line located in the right neck which may have contributed yet no documentation of a bradyarrhythmia thus far. Echocardiogram shows LVEF 60-65%, mild MR, mild TR. As such, recommend a 14 day monitor car operator upon discharge for further corroboration.? Discussed pros and cons in this regard.? Patient and his son both verbalized understanding and wished to proceed with monitor car operator for further evaluation. Order placed for 14 day event monitor. May continue carvedilol 25 mg twice daily. Cardiology will sign off at this time. Please call us back if needed. Will arrange outpatient follow up with Dr. Andre, patient's primary Quality Improvement Coordinator. (2) Elevated troponin: Code(s): R79.89 - Other specified abnormal findings of blood chemistry Status: Acute Assessment and Plan: Mild troponin elevation without anginal symptoms most likely secondary to AFib with RVR, hypotension resulting in demand ischemia/type 2 infarction not secondary to acute coronary syndrome and/or plaque rupture. (3) Chronic atrial fibrillation: Code(s): I48.20 - Chronic atrial fibrillation, unspecified Status: Acute Assessment and Plan: Continue carvedilol 25 mg twice daily for heart rate control and Xarelto 20 mg at bedtime for embolic stroke risk reduction.? Monitor for bleeding.? H&H stable. (4) Coronary artery disease with angina pectoris: Code(s): I25.119 - Atherosclerotic heart disease of [place] coronary artery with unspecified angina pectoris Status: Acute Assessment and Plan: Stable, no anginal symptoms.? Recommend aspirin 81 mg daily in addition to atorvastatin 40 mg at bedtime, carvedilol 25 mg twice daily. (5) PAD (peripheral artery disease): Code(s): I73.9 - Peripheral vascular disease, unspecified Status: Acute Assessment and Plan: Stable, continue wound care management.? Continue atorvastatin 40 mg at bedtime, systemic anticoagulation with Xarelto and aggressive risk factor modification. (6) Chronic anticoagulation: Code(s): Z79.01 - half-way (current) use of anticoagulants Status: Acute Assessment and Plan: Continue Xarelto 20 mg daily for embolic stroke risk reduction. Subjective Date/time seen: 09/09/23 10:39 Interval history: Reason for visit: Syncope, PAF HPI: Patient is a very pleasant 68-year-old male with a past medical history significant for CAD status post CABG 2015, paroxysmal atrial fibrillation status post renal transplant, LISSY, osteomyelitis of left foot with peripheral arterial disease chronic anticoagulation presents emergency department via EMS from home after suffering a syncopal episode.? Patient recently had left foot amputation at [place] on long-term antibiotics afternoon presentation home health nurse was present change the dressing on his PICC line.? While this dressing was being changed she suddenly fell warm, short of breath, lightheaded and then slumped over losing consciousness persistent for approximately 2 minutes.? As reported by his son who was a witness his jaw was clenched and he was breathing heavily no obvious seizure activity but he was inc
--- NOTE | 2023-09-09 12:04 | P.NEURO_ITS ---
Neurology EEG Report General Information Date of Study: 09/09/23 TEST eeg DIAGNOSIS loss of consciousness CONDITION OF RECORDING awake drowsy and sleep EEG NUMBER [id number] CLINICAL HISTORY patient reports he had an episode where he started to hyperventilate, got lightheaded and then lost consciousness. Does not know why he was hyperventilating. EEG DESCRIPTION Basic resting occipital frequency consists of low voltage 9 to 11 hertz per 2n d alpha admixed with low-voltage 15 to 18 hertz per 2nd beta activity and also with good judi posterior gradient. Low-voltage beta activity seen admixed with 6 to 7 hertz per 2nd theta activity and intermittent posterior alpha activity during drowsiness. Bilateral symmetrical sleep activity is noted during sleep. Hyperventilation not done. Photic stimulation not done. Non paroxysmal. Nonfocal. Nonlateralizing. IMPRESSION Normal record
--- NOTE | 2023-09-09 17:16 | PM.IMPN ---
Progress Note: A&P Assessment and Plan (1) Syncope: Code(s): R55 - Syncope and collapse Status: Acute Assessment and Plan: Etiology unclear. Doubt this is orthostatic HoTN since he was at rest. He was orthostatic here with SBP 121 -> 79. Consider vasovagal related to recent dressing changes but patient did not seem bothered by this and RN was just finishing when symptoms occurred. Consider seizure or malignant rhythm given the acute onset and seizure like activity. MRI brain showing no acute findings and EEG was normal. BP still dropping with standing 102 ->89 Suspect syncope realted to vasovagal (2) Elevated troponin: Code(s): R79.89 - Other specified abnormal findings of blood chemistry Status: Acute Assessment and Plan: Troponin climbed to 0.15. EKG showed AFib with RVR and borderline ST-T wave changes in the high lateral leads but overall no change from prior except for the heart rate has increased. Elevated troponins could be related to AFib/RVR. Consider malignant arrhythmia. Consider PE. Consider cardiac ischemia although no complaints of chest pain and EKG showing no acute changes. Echo showing EF 60-65% with indeterminate diastolic fxn and mild valve disease. VQ scan pending. LE dopplers pending Cardiology following and appreciate their input (3) Lower extremity edema: Code(s): R60.0 - Localized edema Status: Acute Assessment and Plan: Patient with asymmetric pedal edema. He is currently on Lasix but concerned that he is intravascularly depleted. Lower extremity venous Dopplers and V/Q scan pending Lasix held. Consider adding midodrine Add Gonzalo hose if Dopplers are negative given his orthostatic hypotension (4) Osteomyelitis of left foot: Code(s): M86.9 - Osteomyelitis, unspecified Status: Acute Assessment and Plan: Status post resection of the 1st great toe. PICC line in place for IV abx Continue IV antibiotics. (5) Immunosuppressed status: Code(s): D84.9 - Immunodeficiency, unspecified Status: Acute Assessment and Plan: Patient is s/p kidney transplant. Continue anti-rejection medications. (6) Peripheral arterial disease: Code(s): I73.9 - Peripheral vascular disease, unspecified Status: Acute Assessment and Plan: Patient had left LE PAD and underwent left SFA angioplasty which was complicated by developing a large hematoma to the groin. He tolerated the procedure well. Continue Xarelto (7) Chronic atrial fibrillation: Code(s): I48.20 - Chronic atrial fibrillation, unspecified Status: Acute Assessment and Plan: Heart rate better controlled. Follows with Cardiology with Dr Andre Monitor on tele for dysrhythmias Continue Xarelto Continue Coreg - consider changing to Toprol if BP becomes more of an issue (8) Hypertension: Code(s): I10 - Essential (primary) hypertension Status: Acute Assessment and Plan: Patient's blood pressure was reviewed on 09/08 Blood pressure remains well controlled but still orthostatic Coreg continued but lisinopril and amlodipine on hold Was on IV Lasix but stopped since probably intravascular depleted. Repeat orthostatic continued to show a drop in BP Follow Plan DVT prophylaxis - Xarelto Code status - full Subjective Date/time seen: 09/09/23 17:16 Interval history: 68yo male with ESRD s/p kidney transplant, CAD s/p CABG, DM, HTN and AFib on anticoagulation here for syncopal episode. Patient was hospitalized at [place] last month for osteomyelitis on IV abx and then to a rehab facility. He has been home (staying at his sons house) since 09/05. Complains of left leg/foot pain. He has not been out of bed No CP or SOB. Voiding well. Able to lie flat in bed Exam Narrative: AF 98.6 132/67 71 16 95% ra Gen - NARD lying flat Chest - CTA bilaterally, nml RR. Right upper chest PICC line with dressing
[2023-09-09] MEDS: RIVAROXABAN 20 MG TABLET PO (17:57)
[2023-09-09] MEDS: TAMSULOSIN HCL 0.4 MG CAPSULE PO (20:25)
[2023-09-09] MEDS: ATORVASTATIN 40 MG TABLET PO (20:25)
[2023-09-10 04:29] VITALS: BP 123/64; TEMP 36.9
[2023-09-10 08:00] VITALS: BP 128/78; BP 132/74; PULSE 86; RESP 20; TEMP 36.6; O2SAT 96
[2023-09-10 08:37] VITALS: PULSE 72
[2023-09-10] MEDS: CHOLECALCIFEROL 1,000 UNITS TABLET 2000 UNITS PO (08:37)
[2023-09-10] MEDS: predniSONE 5 MG TABLET PO (08:37)
[2023-09-10] MEDS: carvediloL 25 MG TABLET PO (08:37)
[2023-09-10] MEDS: MYCOPHENOLATE SODIUM 360 MG 360 EACH PO (08:39)
[2023-09-10] MEDS: cefTRIAXone 2 GM/NS 100 ML 2 GM/100 ML BAG IVPB (08:39)
[2023-09-10 08:50] VITALS: BP 106/71; BP 108/65
--- NOTE | 2023-09-10 15:04 | PM.DS ---
DS: Admitting Diagnosis Discharge Date 09/10/2023 Admitting Diagnosis Syncope. DS: Discharge Diagnosis Discharge Diagnosis (1) Syncope: Code(s): R55 - Syncope and collapse Status: Acute Assessment and Plan: Etiology unclear. Doubt this is orthostatic HoTN since he was at rest. He was orthostatic here with SBP 121 -> 79. Consider vasovagal related to recent dressing changes but patient did not seem bothered by this and RN was just finishing when symptoms occurred. Consider seizure or malignant rhythm given the acute onset and seizure like activity. MRI brain showing no acute findings and EEG was normal. BP still dropping with standing 102 ->89 Suspect syncope realted to vasovagal (2) Elevated troponin: Code(s): R79.89 - Other specified abnormal findings of blood chemistry Status: Acute Assessment and Plan: Troponin climbed to 0.15. EKG showed AFib with RVR and borderline ST-T wave changes in the high lateral leads but overall no change from prior except for the heart rate has increased. Elevated troponins could be related to AFib/RVR. Consider malignant arrhythmia. Consider PE. Consider cardiac ischemia although no complaints of chest pain and EKG showing no acute changes. Echo showing EF 60-65% with indeterminate diastolic fxn and mild valve disease. VQ scan pending. LE dopplers pending Cardiology following and appreciate their input (3) Lower extremity edema: Code(s): R60.0 - Localized edema Status: Acute Assessment and Plan: Patient with asymmetric pedal edema. He is currently on Lasix but concerned that he is intravascularly depleted. Lower extremity venous Dopplers and V/Q scan pending Lasix held. Consider adding midodrine Add Gonzalo hose if Dopplers are negative given his orthostatic hypotension (4) Osteomyelitis of left foot: Code(s): M86.9 - Osteomyelitis, unspecified Status: Acute Assessment and Plan: Status post resection of the 1st great toe. PICC line in place for IV abx Continue IV antibiotics on DC. (5) Immunosuppressed status: Code(s): D84.9 - Immunodeficiency, unspecified Status: Acute Assessment and Plan: Patient is s/p kidney transplant. Continue anti-rejection medications. (6) Peripheral arterial disease: Code(s): I73.9 - Peripheral vascular disease, unspecified Status: Acute Assessment and Plan: Patient had left LE PAD and underwent left SFA angioplasty which was complicated by developing a large hematoma to the groin. He tolerated the procedure well. Continue Xarelto (7) Chronic atrial fibrillation: Code(s): I48.20 - Chronic atrial fibrillation, unspecified Status: Acute Assessment and Plan: Heart rate better controlled. Follows with Cardiology with Dr Andre Monitor on tele for dysrhythmias Continue Xarelto (8) Hypertension: Code(s): I10 - Essential (primary) hypertension Status: Acute Assessment and Plan: Patient's blood pressure was reviewed on 09/08 Blood pressure remains well controlled but still orthostatic Coreg continued but lisinopril and amlodipine on hold DS: Summary Hospital Course Hospital Course: 68yo male with ESRD s/p kidney transplant, CAD s/p CABG, DM, HTN and AFib on anticoagulation here for syncopal episode. Patient was hospitalized at [place] last month for osteomyelitis on IV abx and then to a rehab facility. He has been home (staying at his sons house) since 09/05. Time Spent with Patient Time attestation: Total time spent providing and/or coordinating discharge services:45 minutes on day of dc Exam Narrative: AF 98.6 132/67 71 16 95% ra Gen - NARD lying flat Chest - CTA bilaterally, nml RR. Right upper chest PICC line with dressing intact CV -irregularly irregular. S1/S2. Tele showing AFib with rate control Abd - Soft, NT/ND, Positive BS Ext - L>R pedal edema. Left foot dressing clean
== END 2023-09-10 16:22 | disposition home health service (06) | DRG 312 ==
LOC: ANHED 18:31 → ANHIMU 20:08
PROVIDERS: Internal Medicine; Physician Assistant; Psychiatry & Neurology Neurology; Admitting Provider Hospitalist; Emergency Provider Student in an Organized Health Care Education/Training Program; PCP Family Medicine; Visit Provider Family Medicine
DX: R55 Syncope and collapse (principal); N18.6 End stage renal disease; M86.172 Other acute osteomyelitis, left ankle and foot; D84.9 Immunodeficiency, unspecified; Z94.0 Kidney transplant status; I48.20 Chronic atrial fibrillation, unspecified; I12.0 Hypertensive chronic kidney disease with stage 5 chronic kidney disease or end stage renal disease; E86.9 Volume depletion, unspecified; E78.5 Hyperlipidemia, unspecified; E11.22 Type 2 diabetes mellitus with diabetic chronic kidney disease; G47.33 Obstructive sleep apnea (adult) (pediatric); I73.9 Peripheral vascular disease, unspecified; I25.119 Atherosclerotic heart disease of native coronary artery with unspecified angina pectoris; R32 Unspecified urinary incontinence; R79.89 Other specified abnormal findings of blood chemistry; R60.0 Localized edema; Z95.1 Presence of aortocoronary bypass graft; Z85.528 Personal history of other malignant neoplasm of kidney; Z79.82 Long term (current) use of aspirin; Z79.01 Long term (current) use of anticoagulants; Z88.0 Allergy status to penicillin; Z89.412 Acquired absence of left great toe; Z87.891 Personal history of nicotine dependence
CPT/HCPCS: 36415; 70551; 71046; 78582; 80048; 80053; 80061; 80069; 82306; 82607; 82746; 83735; 84436; 84443; 84480; 84484; 85025; 85027; 87040; 87641; 93005; 93306; 93970; 95816; 96361; 96374; 97161; 97165; 99285; A9270; A9540; A9558; J0696; J1940; J7040; J7512

== ENCOUNTER 2023-09-18 15:39 | Outpatient (NON) | payer MEDICARE, SELFPAY ==
[2023-09-18 16:12] LABS: Basophils Percent Auto 0.5 % (0.2-1.2); Hematocrit 43.2 % (42.0-52.0); Hemoglobin 13.5 g/dL (14.0-18.0); Immature Granulocyte Absolute 0.02 K/mm3 (0.00-0.031); Immature Granulocyte Percent A 0.5 % (0-0.5); Lymphocytes Absolute Auto 0.34 K/mm3 (0.9-3.2); Lymphocytes Percent Auto 7.8 % (18.3-44.2); Mean Corpuscular HGB Conc 31.3 g/dl (32-36); Mean Corpuscular Hemoglobin 30.7 pg (26-34); Mean Corpuscular Volume 98.2 fl (80-100); Mean Platelet Volume 10.4 fl (7.4-10.4); Monocytes Absolute Auto 0.4 K/mm3 (0.1-0.6); Monocytes Percent Auto 8.7 % (2.6-8.5); Neutrophils Absolute Auto 3.6 K/mm3 (1.3-6.7); Neutrophils Percent Auto 82.5 % (45.5-73.1); Platelet Count Result 190 k/mm3 (150-375); White Blood Count 4.4 K/mm3 (4.5-10.0)
[2023-09-18 16:25] LABS: Alanine Aminotransferase 28 U/L (6-50); Albumin Level 2.9 g/dL (3.5-5.1); Alkaline Phosphatase 83 U/L (38-126); Anion Gap 6 mmol/L (4-12); Aspartate Amino Transferase 41 U/L (17-59); Bilirubin,Total 0.7 mg/dL (0.2-1.3); Blood Urea Nitrogen 10 mg/dL (9-20); Calcium 9.3 mg/dL (8.4-10.2); Carbon Dioxide 20 mmol/L (22-30); Chloride 108 mmol/L (98-107); Estimated Glomerular Filt Rate > 60; Glucose 111 mg/dL (65-110); Potassium 3.3 mmol/L (3.4-5.0); Sodium 134 mmol/L (137-145)
== END 2023-09-18 15:40 | disposition home or self-care (01) ==
PROVIDERS: PCP Family Medicine; Visit Provider Internal Medicine Infectious Disease
DX: Z45.2 Encounter for adjustment and management of vascular access device (principal); Z79.2 Long term (current) use of antibiotics; M86.172 Other acute osteomyelitis, left ankle and foot; L03.116 Cellulitis of left lower limb
CPT/HCPCS: 80053; 82248; 85025

== ENCOUNTER 2023-10-31 09:52 | Outpatient (RCR) | payer MEDICARE, SELFPAY ==
[2023-10-31 12:37] VITALS: BMI 31.2
--- NOTE | 2023-11-21 10:46 | PCWOUND ---
WOCN NOTE Patient did not show up for appointment.
== END 2023-11-27 14:54 | disposition home or self-care (01) ==
LOC: ANHWOC 09:52
PROVIDERS: PCP Family Medicine; Visit Provider Internal Medicine Cardiovascular Disease
DX: S61.412D Laceration without foreign body of left hand, subsequent encounter (principal)
CPT/HCPCS: 99213; G0463

== ENCOUNTER 2024-04-09 09:19 | Emergency (ER) | payer MEDICARE, SELFPAY ==
--- NOTE | ~2024-04-09 | XR_ITS ---
EXAMINATION: XR toe 2nd LT min 2V DATE: 04/09/2024 10:21 INDICATION: Infection of second digit of left foot. TECHNIQUE: 3 views of left foot second digit were obtained. COMPARISON: Left foot radiographs 07/30/2023 FINDINGS: There is transmetatarsal amputation of the first ray. There are erosions of the distal aspe ct of second distal phalanx. There are erosions of head of second middle phalanx. There are erosions and osteopenia at base of second proximal phalanx and head of second metatarsal. IMPRESSION: 1. Osteomyelitis involving second metatarsal head and the second digit phalanges. Reviewed, dictated and finalized at location B. IMPRESSION: 1. Osteomyelitis involving second metatarsal head and the second digit phalange s.
[2024-04-09 09:30] VITALS: BP 160/89; PULSE 96; RESP 18; TEMP 36.6; O2SAT 95
[2024-04-09 10:46] LABS: Basophils Percent Auto 0.5 % (0.2-1.2); Eosinophils Absolute Auto 0.1 K/mm3 (0-0.3); Eosinophils Percent Auto 0.8 % (0-4.4); Hematocrit 44.1 % (42.0-52.0); Hemoglobin 14.5 g/dL (14.0-18.0); Immature Granulocyte Absolute 0.05 K/mm3 (0.00-0.031); Immature Granulocyte Percent A 0.7 % (0-0.5); Lymphocytes Absolute Auto 0.81 K/mm3 (0.9-3.2); Lymphocytes Percent Auto 11.1 % (18.3-44.2); Mean Corpuscular HGB Conc 32.9 g/dl (32-36); Mean Corpuscular Hemoglobin 29.9 pg (26-34); Mean Corpuscular Volume 90.9 fl (80-100); Mean Platelet Volume 8.5 fl (7.4-10.4); Monocytes Absolute Auto 0.6 K/mm3 (0.1-0.6); Monocytes Percent Auto 7.5 % (2.6-8.5); Neutrophils Absolute Auto 5.8 K/mm3 (1.3-6.7); Neutrophils Percent Auto 79.4 % (45.5-73.1); Platelet Count Result 199 k/mm3 (150-375); Red Blood Count 4.85 M/mm3 (4.6-6.20); Red Cell Distribution Width 15.6 % (11.5-14.5); White Blood Count 7.3 K/mm3 (4.5-10.0)
[2024-04-09 11:00] LABS: Anion Gap 10 mmol/L (4-12); Blood Urea Nitrogen 18 mg/dL (9-20); CRP 5.8 mg/dL (<1.0); Calcium 10.6 mg/dL (8.4-10.2); Carbon Dioxide 26 mmol/L (22-30); Chloride 101 mmol/L (98-107); Estimated CRCL calculation 91 ml/min; Estimated Glomerular Filt Rate > 60; Glucose 134 mg/dL (65-110); Potassium 4.4 mmol/L (3.4-5.0); Sodium 137 mmol/L (137-145)
--- NOTE | 2024-04-09 11:23 | ED.LOWEXIN ---
HPI - Extremity Injury (Lower) General Chief Complaint: Extremity Injury, Lower <Marilee Allen PA-C - Last Filed: 04/09/24 12:40> Stated Complaint: toe problem <Marilee Allen PA-C - Last Filed: 04/09/24 12:40> Time Seen by Provider: 04/09/24 09:55 <Marilee Allen PA-C - Last Filed: 04/09/24 12:40> Related Data Home Medications: Home Medications Medication Instructions Recorded Confirmed atorvastatin 40 mg tablet (Lipitor) 40 mg PO HS 07/30/23 10/31/23 belatacept 250 mg intravenous 550 mg IV MONTHLY 07/30/23 10/31/23 solution cholecalciferol (vitamin D3) 50 50 mcg PO DAILY 07/30/23 10/31/23 mcg (2,000 unit) tablet (Vitamin D3) prednisone 5 mg tablet 5 mg PO DAILY 07/30/23 10/31/23 rivaroxaban 20 mg tablet (Xarelto) 20 mg PO QPM 07/30/23 10/31/23 sennosides 8.6 mg tablet (Senokot) 8.6 mg PO Q12H PRN Constipation 07/30/23 10/31/23 tamsulosin 0.4 mg capsule 0.4 mg PO QHS 07/30/23 10/31/23 acetaminophen 500 mg tablet 1,000 mg PO Q6H PRN Pain 08/25/23 10/31/23 carvedilol 25 mg tablet 25 mg PO BID 09/07/23 10/31/23 mycophenolate sodium 360 mg 360 mg PO Q12H 09/07/23 10/31/23 tablet,delayed release ceftriaxone 2 gram solution for 2 g IV WEEKLY 09/10/23 10/31/23 injection furosemide 20 mg tablet 20 mg PO DAILY 10/31/23 10/31/23 hydroxyzine HCl 25 mg tablet 25 mg PO BID PRN Itching 10/31/23 10/31/23 lanthanum 1,000 mg chewable tablet 1,000 mg PO TID 10/31/23 10/31/23 loratadine 10 mg tablet 10 mg PO DAILY 10/31/23 10/31/23 sildenafil 25 mg tablet 25 mg PO PRN PRN Sexual Activity 10/31/23 10/31/23 <Marilee Allen PA-C - Last Filed: 04/09/24 12:40> Allergies/Adverse Reactions: Allergies Allergy/AdvReac Type Severity Reaction Status Date / Time Penicillins Allergy Severe Swelling Verified 04/09/24 09:35 Iodinated Contrast Media Allergy Unknown Unknown Verified 04/09/24 09:35 metrizamide Allergy Hives Verified 04/09/24 09:35 contrast dye Allergy Rash Uncoded 04/09/24 09:35 <Marilee Allen PA-C - Last Filed: 04/09/24 12:40> [facility] Past Medical History Medical History: Medical History (Updated 04/09/24 @ 12:09 by Marilee Allen PA-C) Chronic anticoagulation Chronic atrial fibrillation Coronary artery disease Status post 3 vessel bypass. Hypertension Immunosuppressed status On anti-rejection medications post renal transplant. Obstructive sleep apnea Osteomyelitis of left foot Paroxysmal atrial fibrillation Peripheral arterial disease Prediabetes Hemoglobin A1c was 6.3% in 07/2023. Renal cell carcinoma <Marilee Allen PA-C - Last Filed: 04/09/24 12:40> Surgical History Surgical History: Surgical History History of Achilles tendon repair History of cardiac catheterization History of coronary artery bypass graft (09/2015) History of kidney transplant (12/2015) History of right nephrectomy (2011) For renal cell carcinoma. History of transmetatarsal amputation of left foot <Marilee Allen PA-C - Last Filed: 04/09/24 12:40> Family History Family History: Family History Father Hypertension Diabetes mellitus Heart attack Mother Breast cancer <Marilee Allen PA-C - Last Filed: 04/09/24 12:40> Social History Social History: Social History Social History: Surrogate medical decision maker: Vern Wooten, cristian. Code status: Full code. Smoking packs per day: 1 Smoking cigarettes per day: 20.0 Years smoked: 40 Smoking pack-years: 40.00 Smoking status: Former smoker Tobacco type: cigarettes Second hand tobacco smoke exposure: No Smoking end date: 08/07/21 Alcohol intake: current Drinks per week: 1 Substance use: former Substance use type: marijuana Do You Feel Safe in your Home?: Yes Lack of Transportation: No Lack of Food: Never True Current Housing: I Have Housing Concerned About Future Housing: No Difficulty Paying Gas/Electric Bills: No Difficulty Paying for Meds: No Currently Unemployed: No Education: Bachelor's Degree Difficulty w/ Childcare or Family Care: No Spiritual care concerns: No <Marilee Allen PA-C - Last Filed: 04/09/24 12:40> Course Course Emergency Course: patient refusing to be transported via ambulance. Reports he will drive directly to [facility] <Marilee Allen PA-C - Last Filed: 04/09/24 12:40> [employer] CONTENT DEVELOPER/PA Physician Supervision ROWENA discussed patient with me. Aware that, given that needs vascular, will be transferred. Physical exam performed by ROWENA. I was available for consultation but did not personally evaluate the patient and was not otherwise involved in their care. I was also made aware that patient would be presenting via private vehicle. <Lulú Frank MD - Last Filed: 04/09/24 23:15> Consultations Consultation #1: Spoke with Dr. Taylor, [facility], accepts patient as transfer <Marilee Allen PA-C - Last Filed: 04/09/24 12:40> Date: 04/09/24 <Marilee Allen PA-C - Last Filed: 04/09/24 12:40> Vital Signs Vital signs: Vital Signs Temperature 97.9 F 04/09/24 09:30 Pulse Rate 96 04/09/24 09:30 Respiratory Rate 18 04/09/24 09:30 Blood Pressure 160/89 H 04/09/24 09:30 Pulse Oximetry 95 04/09/24 09:30 Oxygen Delivery Room Air 04/09/24 09:30 Temperature 97.9 F 04/09/24 09:30 Pulse Rate 70 04/09/24 12:50 Respiratory Rate 16 04/09/24 12:50 Blood Pressure 135/72 04/09/24 12:50 Pulse Oximetry 98 04/09/24 12:50 Oxygen Delivery Room Air 04/09/24 09:30 <Marilee Allen PA-C - Last Filed: 04/09/24 12:40> Vital Signs Temperature 97.9 F 04/09/24 09:30 Pulse Rate 96 04/09/24 09:30 Respiratory Rate 18 04/09/24 09:30 Blood Pressure 160/89 H 04/09/24 09:30 Pulse Oximetry 95 04/09/24 09:30 Oxygen Delivery Room Air 04/09/24 09:30 Temperature 97.9 F 04/09/24 09:30 Pulse Rate 70 04/09/24 12:50 Respiratory Rate 16 04/09/24 12:50 Blood Pressure 135/72 04/09/24 12:50 Pulse Oximetry 98 04/09/24 12:50 Oxygen Delivery Room Air 04/09/24 09:30 <Lulú Frank MD - Last Filed: 04/09/24 23:15> MDM - Extremity Injury (Lower) MDM Narrative Medical decision making narrative: patient presents to the emergency department for left great toe swelling and redness. Ongoing over the last several weeks. history of peripheral vascular disease. Recent angioplasty and amputation of the left great toe. Has a necrotic wound at the end of the toe that is draining purulent drainage. patient is afebrile and nontoxic appearing. Cbc without leukocytosis. Inflammatory markers are elevated. Lactic acid is not elevated. Blood cultures drawn. Wound culture taken. Left great toe x-ray shows osteomyelitis involving the 2nd metatarsal head and the 2nd digit phalanges. due to patient's vascular problems and recent treatment for similar issue at [place], I do believe he would be better served there were vascular is available. Spoke with Dr. Taylor, [place] [facility], accepts patient as transfer. patient refusing to be transported via ambulance. Reports he will drive directly to [place] [facility] <Marilee Allen PA-C - Last Filed: 04/09/24 12:40> Differential Diagnosis Differential diagnosis: Likely other ( osteomyelitis, cellulitis, abscess) <Marilee Allen PA-C - Last Filed: 04/09/24 12:40> Lab Data Attestation: I reviewed the patient's lab results. <Marilee Allen PA-C - Last Filed: 04/09/24 12:40> Result diagrams: 04/09/24 10:39 04/09/24 10:39 <Marilee Allen PA-C - Last Filed: 04/09/24 12:40> Labs: Lab Results 04/09/24 04/09/24 Range/Units 10:39 10:56 WBC 7.3 (4.5-10.0) K/mm3 RBC 4.85 (4.6-6.20) M/mm3 Hgb 14.5 (14.0-18.0) g/dL Hct 44.1 (42.0-52.0) % MCV 90.9 (80-100) fl MCH 29.9 (26-34) pg MCHC 32.9 (32-36) g/dl RDW 15.6 H (11.5-14.5) % Plt Count 199 (150-375) k/mm3 MPV 8.5 (7.4-10.4) fl Immature Gran % (Auto) 0.7 H (0-0.5) % Neut % (Auto) 79.4 H (45.5-73.1) % Lymph % (Auto) 11.1 L (18.3-44.2) % Rankin % (Auto) 7.5 (2.6-8.5) % Eos % (Auto) 0.8 (0-4.4) % Baso % (Auto) 0.5 (0.2-1.2) % Lymph # (Auto) 0.81 L (0.9-3.2) K/mm3 Rankin # (Auto) 0.6 (0.1-0.6) K/mm3 Eos # (Auto) 0.1 (0-0.3) K/mm3 Baso # (Auto) 0.0 (0.0-0.1) K/mm3 Abs Immat Gran (auto) 0.05 H (0.00-0.031) K/mm3 Absolute Neuts (auto) 5.8 (1.3-6.7) K/mm3 Absolute Nucleated RBC 0.000 (0.0-0.012) K/mm3 Nucleated RBC % 0.0 (0.0-0.2) % ESR 26 H (0-20) mm/hr Sodium 137 (137-145) mmol/L Potassium 4.4 (3.4-5.0) mmol/L Chloride 101 (98-107) mmol/L Carbon Dioxide 26 (22-30) mmol/L Anion Gap 10 (4-12) mmol/L BUN 18 (9-20) mg/dL Creatinine 0.90 (0.7-1.3) mg/dL Estim Creat Clear Calc 91 ml/min Estimated GFR > 60 (59 - ) Glucose 134 H (65-110) mg/dL Lactic Acid 1.0 (0.7-2.0) mmol/L Calcium 10.6 H (8.4-10.2) mg/dL C-Reactive Protein 5.8 H (<1.0) mg/dL <Marilee Allen PA-C - Last Filed: 04/09/24 12:40> Lab Results 04/09/24 04/09/24 Range/Units 10:39 10:56 WBC 7.3 (4.5-10.0) K/mm3 RBC 4.85 (4.6-6.20) M/mm3 Hgb 14.5 (14.0-18.0) g/dL Hct 44.1 (42.0-52.0) % MCV 90.9 (80-100) fl MCH 29.9 (26-34) pg MCHC 32.9 (32-36) g/dl RDW 15.6 H (11.5-14.5) % Plt Count 199 (150-375) k/mm3 MPV 8.5 (7.4-10.4) fl Immature Gran % (Auto) 0.7 H (0-0.5) % Neut % (Auto) 79.4 H (45.5-73.1) % Lymph % (Auto) 11.1 L (18.3-44.2) % Rankin % (Auto) 7.5 (2.6-8.5) % Eos % (Auto) 0.8 (0-4.4) % Baso % (Auto) 0.5 (0.2-1.2) % Lymph # (Auto) 0.81 L (0.9-3.2) K/mm3 Rankin # (Auto) 0.6 (0.1-0.6) K/mm3 Eos # (Auto) 0.1 (0-0.3) K/mm3 Baso # (Auto) 0.0 (0.0-0.1) K/mm3 Abs Immat Gran (auto) 0.05 H (0.00-0.031) K/mm3 Absolute Neuts (auto) 5.8 (1.3-6.7) K/mm3 Absolute Nucleated RBC 0.000 (0.0-0.012) K/mm3 Nucleated RBC % 0.0 (0.0-0.2) % ESR 26 H (0-20) mm/hr Sodium 137 (137-145) mmol/L Potassium 4.4 (3.4-5.0) mmol/L Chloride 101 (98-107) mmol/L Carbon Dioxide 26 (22-30) mmol/L Anion Gap 10 (4-12) mmol/L BUN 18 (9-20) mg/dL Creatinine 0.90 (0.7-1.3) mg/dL Estim Creat Clear Calc 91 ml/min Estimated GFR > 60 (59 - ) Glucose 134 H (65-110) mg/dL Lactic Acid 1.0 (0.7-2.0) mmol/L Calcium 10.6 H (8.4-10.2) mg/dL C-Reactive Protein 5.8 H (<1.0) mg/dL <Lulú Frank MD - Last Filed: 04/09/24 23:15> Imaging Data Radiologist's impression: ITS Impressions Toe X-Ray 04/09/24 10:22 IMPRESSION: 1. Osteomyelitis involving second metatarsal head and the second digit phalanges. <Marilee Allen PA-C - Last Filed: 04/09/24 12:40> Critical Care Time Critical Care Time Critical Care Time: Yes <Marilee Allen PA-C - Last Filed: 04/09/24 12:40> Total Critical Care Time: 35 <Marilee Allen PA-C - Last Filed: 04/09/24 12:40> Discharge Plan Discharge Clinical Impression: Osteomyelitis Qualifiers: Osteomyelitis type: unspecified type Osteomyelitis location: foot Laterality: left Qualified Code(s): M86.9 - Osteomyelitis, unspecified <Marilee Allen PA-C - Last Filed: 04/09/24 12:40> Patient Disposition: Acute Care Hospital <MARCUS Harris Last Filed: 04/09/24 12:40> Condition: Serious <Marilee Allen PA-C - Last Filed: 04/09/24 12:40> Additional Instructions: You need to go directly to [place] [facility]. DO NOT eat or drink. You were given a dose of Metronidazole in our ER <Marilee Allen PA-C - Last Filed: 04/09/24 12:40> Prescriptions: No Action sildenafil 25 mg Tablet 25 mg PO PRN PRN (Reason: Sexual Activity) hydroxyzine HCl 25 mg Tablet 25 mg PO BID PRN (Reason: Itching) furosemide 20 mg Tablet 20 mg PO DAILY loratadine 10 mg Tablet 10 mg PO DAILY lanthanum 1,000 mg Tablet,Chewable 1,000 mg PO TID Rx Instructions: administer with food; chew thoroughly before swallowing atorvastatin [Lipitor] 40 mg Tablet 40 mg PO HS sennosides [Senokot] 8.6 mg Tablet 8.6 mg PO Q12H PRN (Reason: Constipation) prednisone 5 mg tablet 5 mg PO DAILY tamsulosin 0.4 mg Capsule 0.4 mg PO QHS cholecalciferol (vitamin D3) [Vitamin D3] 50 mcg (2,000 unit) Tablet 50 mcg PO DAILY belatacept 250 mg Recon Soln 550 mg IV MONTHLY Xarelto 20 mg Tablet 20 mg PO QPM Rx Instructions: must administer with evening meal carvedilol 25 mg tablet 25 mg PO BID mycophenolate sodium 360 mg tablet,delayed release (DR/EC) 360 mg PO Q12H ceftriaxone 2 gram recon soln 2 g IV WEEKLY Rx Instructions: last dose 11/04/23 acetaminophen 500 mg Tablet 1,000 mg PO Q6H PRN (Reason: Pain) <Marilee Allen PA-C - Last Filed: 04/09/24 12:40> Follow-up/Referrals: Joao Roberts MD [Primary Care Provider] - <Marilee Allen PA-C - Last Filed: 04/09/24 12:40>
[2024-04-09 11:27] LABS: Erythrocyte Sedimentation Rate 26 mm/hr (0-20)
[2024-04-09] MEDS: metroNIDAZOLE 500 MG/ISO 100ML 500 MG/100 ML BAG 100 MG IVPB (11:43)
[2024-04-09 12:50] VITALS: BP 135/72; PULSE 70; RESP 16; O2SAT 98
== END 2024-04-09 12:50 | disposition short-term general hospital (02) ==
PROVIDERS: Emergency Provider Physician Assistant; PCP Family Medicine
DX: M86.9 Osteomyelitis, unspecified (principal); Z79.01 Long term (current) use of anticoagulants; I25.10 Atherosclerotic heart disease of native coronary artery without angina pectoris; I10 Essential (primary) hypertension; G47.33 Obstructive sleep apnea (adult) (pediatric); I48.0 Paroxysmal atrial fibrillation; Z85.53 Personal history of malignant neoplasm of renal pelvis; Z87.891 Personal history of nicotine dependence
CPT/HCPCS: 36415; 73660; 80048; 83605; 85025; 85652; 86140; 87040; 87070; 87181; 87205; 96374; 99284; J1836